=== PATIENT | female | born 1945 | race Hispanic/Latino ===

== ENCOUNTER 2017-04-15 15:02 | Inpatient (IN) | payer MEDICARE, BC ==
[2017-04-15] MEDS ORDERED: Amiodarone 360 mg/D5W 200 ml 360 MG/200 ML BAG IV ONE (15:31)
[2017-04-15] MEDS ORDERED: Amiodarone 150 mg/D5W 100 ml 150 MG/100 ML BAG ONE (15:32)
[2017-04-15] MEDS ORDERED: Amiodarone 150 mg/D5W 100 ml 150 MG/100 ML BAG IVPB ONE (15:33)
[2017-04-15] MEDS ORDERED: Amiodarone 360 mg/D5W 200 ml 360 MG/200 ML BAG IV SCH (15:45)
[2017-04-15 15:49] LABS: BASO # 0.03 K/mm3 (0.0-2.0); BASO % 0.3 % (0.0-3.0); EOS # 0.2 (0.0-0.7); EOS % 1.7 % (1.5-5.0); GRAN # 5.34 (1.4-6.5); HEMATOCRIT 35.4 % (36.0-48.0); LYMPH # 2.2 (1.2-3.4); LYMPH % 25.9 % (22.0-35.0); MEAN CELL VOLUME 89.4 fl (80.0-105.0); MEAN CORPUSCULAR HEMOGLOBIN 30.8 pg (25.0-35.0); MEAN CORPUSCULAR HGB CONC 34.5 g/dl (31.0-37.0); MEAN PLATELET VOLUME 10.8 fl (7.0-11.0); MONO # 0.9 (0.1-0.6); MONO % 10.1 % (1.0-6.0); RED CELL DISTRIBUTION WIDTH 13.3 % (11.5-14.5); WHITE BLOOD COUNT 8.6 10^3/ul (4.5-11.0)
[2017-04-15 15:59] LABS: ALB/GLOB RATIO 1.4 (1.1-1.8); ALKALINE PHOSPHATASE 154 U/L (38-126); ALT/SGPT 42 U/L (7-56); AST/SGOT 28 U/L (14-36); BILIRUBIN,TOTAL 0.6 mg/dL (0.2-1.3); BLOOD UREA NITROGEN 37 mg/dL (7-21); CALCIUM 9.6 mg/dL (8.4-10.5); CARBON DIOXIDE 31 mmol/L (21-33); CHLORIDE 95 mmol/L (98-107); GFR AFRICAN-AMERICAN 54; POTASSIUM 4.7 mmol/L (3.6-5.0); SODIUM 136 mmol/L (132-148)
--- NOTE | 2017-04-15 16:02 | RAD ---
HISTORY: sob COMPARISON: No prior. FINDINGS: LUNGS: No active pulmonary disease. PLEURA: No significant pleural effusion identified, no pneumothorax apparent. CARDIOVASCULAR: Moderate cardiomegaly OSSEOUS STRUCTURES: Sternal wires VISUALIZED UPPER ABDOMEN: Normal. OTHER FINDINGS: None. IMPRESSION: No active disease.
[2017-04-15 16:04] LABS: GLUCOSE,RANDOM 426 mg/dL (70-110)
[2017-04-15 16:12] LABS: TROPONIN I < 0.01 ng/mL
[2017-04-15 16:15] LABS: INR 1.5 (0.93-1.08); PARTIAL THROMBOPLASTIN TIME 30.1 Seconds (25.1-36.5)
[2017-04-15 18:01] LABS: URINE BILIRUBIN NEGATIVE (NEGATIVE); URINE BLOOD NEGATIVE (NEGATIVE); URINE GLUCOSE (UA) >=1000 mg/dL (NEGATIVE); URINE KETONE NEGATIVE (NEGATIVE); URINE LEUKOCYTE ESTERASE NEGATIVE Leu/uL (NEGATIVE); URINE PROTEIN NEGATIVE mg/dL (<30 mg/dL); URINE UROBILINOGEN 0.2 E.U./dL (<1 E.U./dL)
[2017-04-15 18:03] LABS: URINE APPEARANCE CLEAR (CLEAR); URINE COLOR YELLOW (YELLOW)
[2017-04-15] MEDS: diltiaZEM IVPB 100mg in NS 100 ML IV PRN (18:15)
--- NOTE | 2017-04-15 19:12 | ED PDOC ---
Arrival/HPI - General Chief Complaint: Palpitations Time Seen by Provider: 04/15/17 15:06 Historian: Patient - History of Present Illness Narrative History of Present Illness (Text): 04/15/17 19:12 Patient is a 71 yo female, past medical hx of CAD, atrial fibrillation, s/p ablation, presents to ED stating that she has had palpitations for "past 1-2 hours". Patient reportedly had sudden onset of symptoms. Has mild sensation of shortness of breath. Denies chest pain. Denies lightheadedness or dizziness. She states that "I've had this many times I'm in and out of [facility] Patient states this am she was in normal state of his health. Past Medical History - Infectious Disease Hx of Infectious Diseases: None - Tetanus Immunization Tetanus Immunization: Unknown - Reproductive Menopause: Yes - Cardiac Hx Congestive Heart Failure: Yes Hx Hypertension: Yes - Pulmonary Hx Respiratory Disorders: Yes (denies pe, has home o2) Hx Chronic Obstructive Pulmonary Disease (COPD): Yes - Neurological Hx Neurological Disorder: No - HEENT Hx HEENT Disorder: No - Renal Hx Renal Disorder: No - Endocrine/Metabolic Hx Endocrine Disorders: Yes Hx Diabetes Mellitus Type 1: Yes - Hematological/Oncological Hx Blood Disorders: No - Integumentary Hx Dermatological Disorder: Yes Other/Comment: left lower leg red and +2 edema with dry flakey skin to foot and lower leg, right lower extremity less red +3 pitting edema to foot with dry flakey skin. Pt stated" My legs have been like this since after my open heart sx". - Musculoskeletal/Rheumatological Hx Musculoskeletal Disorders: Yes Hx Arthritis: Yes - Gastrointestinal Hx Gastrointestinal Disorders: No - Genitourinary/Gynecological Hx Genitourinary Disorders: No - Psychiatric Hx Psychophysiologic Disorder: Yes Hx Anxiety: Yes Hx Depression: Yes Hx Substance Use: No - Surgical History Hx Coronary Artery Bypass Graft: Yes Hx Open Heart Surgery: Yes Other/Comment: rt foot fracture + splint - Anesthesia Hx Anesthesia: Yes Hx Anesthesia Reactions: No - Suicidal Assessment Feels Threatened In Home Enviroment: No Family/Social History Family/Social History: Unknown Family HX Smoking Status: Former Smoker Hx Alcohol Use: No Hx Substance Use: No Hx Substance Use Treatment: No Allergies/Home Meds Allergies/Adverse Reactions: Allergies No Known Allergies Allergy (Verified 04/15/17 19:09) Home Medications: Home Meds Medication Instructions Recorded Confirmed Alprazolam 0.25 mg PO BID 09/10/14 04/15/17 Atorvastatin [Lipitor] 40 mg PO DAILY 09/10/14 04/15/17 Escitalopram [Lexapro] 20 mg PO DAILY 09/10/14 04/15/17 Furosemide 60 mg PO DAILY 09/10/14 04/15/17 Insulin Glargine,Hum.rec.anlog 55 units SUBCUT ACB 09/10/14 04/15/17 [Lantus] Apixaban [Eliquis] 5 mg PO BID 04/15/17 04/15/17 Calcium Carb, Citrate/Vit D3 600 mg PO BID 04/15/17 04/15/17 [Calcium + D3 ER Tablet] Escitalopram Oxalate [Escitalopram] 20 mg PO DAILY 04/15/17 04/15/17 Fluticasone/Vilanterol [Breo 1 pow IH DAILY 04/15/17 04/15/17 Ellipta] Folic Acid 1 mg PO DAILY 04/15/17 04/15/17 Insulin Glargine,Hum.rec.anlog 20 unit SQ ACD 04/15/17 04/15/17 [Lantus Solostar] Insulin Lispro [Humalog (Insulin 0 unit SQ 04/15/17 Lispro)] Montelukast [Singulair] 10 mg PO HS 04/15/17 04/15/17 Nebivolol [Bystolic] 25 mg PO DAILY 04/15/17 04/15/17 Semnt-1-Lria Ethyl Esters 1 GM 2 gm PO DAILY 04/15/17 04/15/17 [Lovaza] Pantoprazole [Protonix] 40 mg PO DAILY 04/15/17 04/15/17 Potassium Chloride [K-Tab ER] 10 meq PO DAILY 04/15/17 04/15/17 Tadalafil [Adcirca] 40 mg PO HS 04/15/17 04/15/17 Review of Systems - Review of Systems Constitutional: Fatigue. absent: Fevers Eyes: absent: Vision Changes ENT: absent: Hearing Changes Respiratory: absent: SOB, Cough Cardiovascular: Palpitations, VILLASENOR. absent: Chest Pain, Edema, Calf Pain Gastrointestinal: absent: Abdominal Pain, Nausea, Vomiting Genitourinary Female: absent: Dysuria Musculoskeletal: absent: Back Pain Skin: absent: Rash Neurological: absent: Headache, Dizziness, Focal Weakness Hemo/Lymphatic: absent: Easy Bleeding Physical Exam Vital Signs Reviewed: Yes Vital Signs Temp Pulse Resp BP Pulse Ox 04/15/17 18:05 102 H 121/58 L 04/15/17 17:44 124 H 124/64 04/15/17 17:43 124 H 124/64 04/15/17 15:28 97.9 F 203 H 18 113/92 H 99 04/15/17 15:15 98 F 204 H 20 118/87 98 Temperature: Afebrile Blood Pressure: Normal Pulse: Tachycardic Appearance: Positive for: Uncomfortable Pain Distress: Mild Mental Status: Positive for: Alert and Oriented X 3 - Systems Exam Head: Present: Atraumatic, Normocephalic Pupils: Present: PERRL Extroacular Muscles: Present: EOMI Mouth: Present: Moist Mucous Membranes Pharnyx: No: ERYTHEMA Nose (Internal): Present: Normal Inspection Neck: Present: Normal Range of Motion, JVD Respiratory/Chest: Present: Clear to Auscultation. No: Respiratory Distress Cardiovascular: Present: Murmurs, Tachycardic Abdomen: Present: Distention. No: Tenderness, Peritoneal Signs Rectal: No: Gross Blood Back: No: CVA Tenderness Upper Extremity: No: Cyanosis Lower Extremity: Present: NORMAL PULSES, Neurovascularly Intact. No: Edema, CALF TENDERNESS Neurological: Present: Motor Func Grossly Intact, Normal Sensory Function Skin: Present: Warm Psychiatric: Present: Alert, Normal Insight, Normal Concentration Medical Decision Making ED Course and Treatment: Patient is a 71 yo female presents to ED with sudden onset of palpitations upon arrival. Initial history supplemented by family and daughters, who states most of her recent medical care has been at [facility] Her PMD is Dr. Chester Weiner, her runstitching machine operator is through Dr. Weiner's office, they were paged upon arrival to obtain more specific history as patient initially unclear of her medication sensitivities. Trust Accounts Supervisor is Dr. Horn. Upon arrival, patient placed on monitor and found to be significantly tachycardic with hear rate of 180-200, wide complex. EKG at 15:17 reveals wide complex tachycardia, ddx ventricular tachycardia vs. atrial flutter, vs. svt. With this heart rhythm she had MILD symptoms, mild dyspnea, no chest pain or lightheadedness, and noted to have stable blood pressure. Daughter at bedside stated that "one of the medications they gave for her heart gave her a seizure" and they were unable to recollect this medication. Thus, page placed to Dr. Horn and her PMD as I discussed treatment plan including rate control of wide complex rhythm. On monitor, patient appeared to have occasional irregular appearance to tachycardia. Cardiology consulted, Dr. Singer initially as he was on-call runstitching machine operator, although family subsequently requested Dr. Tapia as they were familiar with him in past. Amiodarone bolus and drip initiated and patient had improvement of heart rhythm to 130s, with no chest pain or shortness of breath, and stable blood pressure. Cardiology presented to ED and I discussed case with Dr. Horn, who informs me she had previous reaction to medication called Dofetalide after an ablation earlier this year. This was communicated to family. With rate control, she remains in atrial fibrillation but remains asymptomatic. Cannot exclude component of ischemia on repeat EKG, but she denies chest pain. Anticoagulation ordered per cardiology. Patient and family request Dr. Mooney to be her admitting physician as her PMD does not admit here, this was discussed with Dr. Mooney who is agreeable. Patient admitted to telemetry floor. Blood sugar elevated, current exam not consistent with DKA. Will endorse to admitting team for management. - Lab Interpretations Lab Results: 04/15/17 15:30 04/15/17 15:30 Lab Results 04/15/17 15:30: Sodium 136, Potassium 4.7, Chloride 95 L, Carbon Dioxide 31, Anion Gap 15, BUN 37 H, Creatinine 1.2, Est GFR ( Amer) 54, Est GFR (Non- Af Amer) 44, Random Glucose 426 H* D, Calcium 9.6, Total Bilirubin 0.6, AST 28, ALT 42, Alkaline Phosphatase 154 H, Lactate Dehydrogenase 587, Total Creatine Kinase 47, Troponin I < 0.01 D, NT-Pro-B Natriuret Pep 1210 H, Total Protein 7.0, Albumin 4.1, Globulin 3.0, Albumin/Globulin Ratio 1.4 04/15/17 15:30: PT 16.5 H, INR 1.50 H, APTT 30.1 04/15/17 15:30: WBC 8.6, RBC 3.96, Hgb 12.2, Hct 35.4 L, MCV 89.4, MCH 30.8, MCHC 34.5, RDW 13.3, Plt Count 283, MPV 10.8, Gran % 62.0, Lymph % (Auto) 25.9, [place] % (Auto) 10.1 H, Eos % (Auto) 1.7, Baso % (Auto) 0.3, Gran # 5.34, Lymph # 2.2, [place] # 0.9 H, Eos # 0.2, Baso # 0.03 - RAD Interpretation Radiology Orders: 04/15/17 15:32 CHEST PORTABLE [RAD] Stat - Medication Orders Current Medication Orders: Amiodarone HCl (Cordarone) 200 mg PO DAILY RASHID Amiodarone HCl (Cordarone) 400 mg PO TID RASHID Stop: 04/16/17 14:01 Apixaban (Eliquis) 5 mg PO BID RASHID PRN Reason: Protocol Atorvastatin Calcium (Lipitor) 40 mg PO DAILY RASHID Amiodarone HCl/Dextrose (Nexterone 360 Mg In D5w 200 Ml (Premix)) 360 mg in 200 mls @ 33.333 mls/hr IV .Q6H RASHID; 1 MG/MIN PRN Reason: Protocol Last Admin: 04/15/17 16:06 Dose: 33.333 mls/hr eMAR Start Stop Document 04/15/17 16:06 [facility] (Rec: 04/15/17 16:06 [facility]-[id number]) Intravenous Solution Start Date 04/15/17 Start Time 16:06 diltiaZEM IVPB 100mg in NS (Cardizem 100mg In Ns) 100 mls @ 10 mls/hr IV .Q10H PRN; Protocol; 10 MG/HR PRN Reason: TITRATE PER MD ORDER Stop: 04/18/17 23:59 Discontinued Medications Amiodarone HCl (Cordarone) 400 mg PO STAT STA Stop: 04/15/17 17:11 Last Admin: 04/15/17 17:43 Dose: 400 mg Diltiazem HCl (Cardizem) 10 mg IVP STAT STA Stop: 04/15/17 17:10 Last Admin: 04/15/17 17:44 Dose: 10 mg IVP Administration Document 04/15/17 17:44 [facility] (Rec: 04/15/17 17:44 [facility]-[id number]) Charges for Administration # of IVP Administrations 1 AUG Pulse and Blood Pressure Document 04/15/17 17:44 [facility] (Rec: 04/15/17 17:44 [facility]-[id number]) Pulse Pulse Rate (60-90 beats/min) 124 Blood Pressure Blood Pressure (100/60-150/90 mm Hg) 124/64 Amiodarone HCl/Dextrose (Nexterone 150 Mg In Dextrose 100 Ml (Premix)) 150 mg in 100 mls @ 600 mls/hr IVPB ONCE ONE PRN Reason: Protocol Stop: 04/15/17 15:42 Last Admin: 04/15/17 16:00 Dose: 600 mls/hr eMAR Start Stop Document 04/15/17 16:00 [facility] (Rec: 04/15/17 16:00 [facility]-[id number]) Intravenous Solution Start Date 04/15/17 Start Time 16:00 End Date 04/15/17 End time 16:10 Total Infusion Time 10 Verapamil HCl (Verapamil Inj) 2.5 mg IVP STAT STA Stop: 04/15/17 17:08 Last Admin: 04/15/17 17:43 Dose: 2.5 mg IVP Administration Document 04/15/17 17:43 [facility] (Rec: 04/15/17 17:43 [facility]-[id number]) Charges for Administration # of IVP Administrations 1 AUG Pulse and Blood Pressure Document 04/15/17 17:43 [facility] (Rec: 04/15/17 17:43 [facility]-[id number]) Pulse Pulse Rate (60-90 beats/min) 124 Blood Pressure Blood Pressure (100/60-150/90 mm Hg) 124/64 Verapamil HCl (Verapamil Inj) 2.5 mg IVP ONCE ONE Stop: 04/15/17 17:16 Last Admin: 04/15/17 18:05 Dose: MAR Pulse and Blood Pressure Document 04/15/17 18:05 [facility] (Rec: 04/15/17 18:05 [facility]-[id number]) Pulse Pulse Rate (60-90 beats/min) 102 Blood Pressure Blood Pressure (100/60-150/90 mm Hg) 121/58 Disposition/Present on Arrival - Present on Arrival Any Indicators Present on Arrival: Yes History of DVT/PE: No History of Uncontrolled Diabetes: Yes Urinary Catheter: No History of Decub. Ulcer: No History Surgical Site Infection Following: None - Disposition Have Diagnosis and Disposition been Completed?: Yes Diagnosis: Atrial fibrillation with rapid ventricular response, Tachyarrhythmia, Hyperglycemia Disposition: HOSPITALIZED Disposition Time: 17:35 Patient Plan: Admission, Telemetry Patient Problems: Current Active Problems Problem Status Onset Atrial fibrillation with rapid ventricular response Acute Hyperglycemia Acute Tachyarrhythmia Acute Condition: SERIOUS
[2017-04-15 20:33] VITALS: BMI 46.3
[2017-04-15] MEDS ORDERED: Pneumococcal 23-Valent Vaccine IM ONE (20:33)
[2017-04-15] MEDS ORDERED: Influenza Vaccine 60 mcg/0.5 mL SYR (4YR UP) IM ONE (20:33)
--- NOTE | 2017-04-15 23:29 | HP ---
CHIEF COMPLAINT: Palpitation. HISTORY OF PRESENT ILLNESS: Ms. Brigitte Nance is a 71-year-old female with past medical history of coronary artery disease, atrial fibrillation, SP ablation, presented to the emergency room department stating that she has had palpitation for at least 1 to 2 hours. The patient had sudden onset of the symptoms, has mild sensation of the shortness of breath. Denies nausea, vomiting or diarrhea. Denies lightheadedness. She states that "I have had this many times, I am in and out of [facility]." The patient said this a.m. she was in normal state of her health; then, she started palpitation. I saw the patient in the emergency room. Her daughter is my private patient, she was sitting on the bedside. PAST MEDICAL HISTORY: Coronary artery disease, atrial fibrillation, SP ablation, history of congestive heart failure, hypertension, COPD, diabetes mellitus. Left lower leg redness plus edema with dry flakes of skin of foot and lower extremities. Right lower extremity less red, +3 pitting edema to foot with dry flaky skin. Has history of open heart surgery; arthritis; anxiety; depression; coronary artery bypass graft; right foot fracture, has splint. FAMILY HISTORY: Father and mother noncontributory. HABITS: Former smoker, now no smoking. No drugs. No ethanol. ALLERGIES: THE PATIENT IS NOT ALLERGIC TO ANY MEDICATIONS. HOME MEDICATIONS: Lipitor, Lexapro, Lasix, Eliquis, calcium with vitamin D, Breo, folic acid, Lantus, lispro, Singulair, Bystolic, Lovaza, Protonix and Adcirca. REVIEW OF SYSTEMS: The patient was seen and examined on the bedside, feeling fatigue. No fever. No vision changes. No hearing changes. The moment no coughing, having palpitation. No chest pain. Having swelling of the legs. No abdominal pain, nausea or vomiting. No dysuria. No back pain. No rashes. No headache, dizziness or focal weakness. The patient has a history of easy bleeding. PHYSICAL EXAMINATION: VITAL SIGNS: Temperature 97.9; pulse 204 - 203, repeat is 124 - 102; respiratory rate 20, blood pressure 118/87 and pulse oximetry 98%. HEENT: Head is normocephalic and atraumatic. Eyes: PERRLA. Extraocular muscles intact. Conjunctivae clear. Nose is patent. Mucous membrane moist. NECK: Supple. No carotid bruits, JVD or thyromegaly. CHEST: Bilaterally symmetrical. LUNGS: Clear to auscultation. No respiratory distress. HEART: Has murmur, tachycardia. ABDOMEN: Distended. No tenderness. No peritoneal signs. BACK: No CVA tenderness. EXTREMITIES: Upper extremities, no cyanosis. Lower extremities, normal pulses. No swelling right now. SKIN: Warm, moist. LABORATORY DATA: White blood cell 8.6, hemoglobin 12.2, hematocrit 35.4 and platelets 283. Sodium 136, potassium 4.7, BUN 37, creatinine 1.2 and glucose 426. ASSESSMENT AND PLAN: Ms. Brigitte Nance is a 71-year-old lady with uncontrolled diabetes mellitus, hypochloremia, increased BUN, troponin is negative, congestive heart failure, BNP is 1210, atrial fibrillation with rapid ventricular response, tachycardia, hyperglycemia, tachyarrhythmia. Discussion done with Dr. Alejandrina Barros, ER physician. The patient is seen by Dr. Tapia, priming mixture carrier. The patient has a history of coronary artery disease, status post open heart surgery, SP ablation; chronic obstructive pulmonary disease; history of leg swelling, but right now do not have leg swelling; history of anxiety and depression; coronary artery bypass graft. We admitted the patient. Chest x-rays done, reviewed by me. The patient was given amiodarone in ER; started diltiazem, amiodarone, Eliquis and Lipitor. Gastrointestinal and deep venous thrombosis prophylaxis. Repeat labs. We will follow up. Marry Mooney MD MTDD
[2017-04-15] MEDS: TADALAFIL 40 MG PO SCH (23:36)
--- NOTE | 2017-04-16 00:40 | CP.PCM.PN ---
Subjective - Date & Time of Evaluation Date of Evaluation: 04/16/17 Time of Evaluation: 00:30 - Subjective Subjective: Patient was seen at bedside. Complains of pain in right foot and left shoulder. States that she had fracture in left foot in February, had left shoulder rotator cuff injury. Has no other complaints now. BP 108/66, HR 103/min, Temp: 98.1*F. Medical record was reviewed. This 71 year old white woman was admitted palpitation, sob, atrial fibrillation with RVR. Has PMH of atrial fibrillation, s/P ablation, CABG, CAD, CHF, HTN, COPD, DM II , open heart surgery, arthritis, anxiety, depression , right foot surgery. Objective - Vital Signs/Intake and Output Vital Signs (last 24 hours): Temp Pulse Resp BP Pulse Ox 98.1 F 103 H 19 108/66 96 04/15/17 23:37 04/15/17 23:37 04/15/17 23:37 04/15/17 23:37 04/15/17 23:37 - Medications Medications: Current Medications Albuterol/Ipratropium (Duoneb 3 Mg/0.5 Mg (3 Ml) Ud) 3 ml IH [id number] RASHID Alprazolam (Xanax) 0.25 mg PO BID RASHID PRN Reason: Protocol Stop: 04/23/17 10:01 Amiodarone HCl (Cordarone) 200 mg PO DAILY RASHID Amiodarone HCl (Cordarone) 400 mg PO TID [facility] Stop: 04/16/17 14:01 Apixaban (Eliquis) 5 mg PO BID RASHID PRN Reason: Protocol Last Admin: 04/15/17 19:16 Dose: 5 mg Atorvastatin Calcium (Lipitor) 40 mg PO DAILY [facility] Folic Acid (Folic Acid) 1 mg PO DAILY [facility] diltiaZEM IVPB 100mg in NS (Cardizem 100mg In Ns) 100 mls @ 10 mls/hr IV .Q10H PRN; Protocol; 10 MG/HR PRN Reason: TITRATE PER MD ORDER Stop: 04/18/17 23:59 Last Admin: 04/15/17 18:15 Dose: 10 mg/hr, 10 mls/hr Insulin Human Regular (Humulin R Low) 0 units SC ACHS RASHID PRN Reason: Protocol Montelukast Sodium (Singulair) 10 mg PO HS RASHID Non-Formulary Medication (Calcium Carb, Citrate/Vit D3 [Calcium + D3 Er Tablet] ) 600 mg PO BID RASHID Non-Formulary Medication (Fluticasone/Vilanterol [Breo Ellipta 100-25 Mcg Inh]) 1 pow IH DAILY RASHID Non-Formulary Medication (Nebivolol [Bystolic]) 25 mg PO DAILY RASHID Non-Formulary Medication (Tadalafil [Adcirca]) 40 mg PO HS [facility] Last Admin: 04/15/17 23:36 Dose: Not Given [id number] Ethyl Esters (Lovaza) 2 gm PO DAILY RASHID Pantoprazole Sodium (Protonix Ec Tab) 40 mg PO DAILY RASHID - Labs Labs: PT 16.5 SECONDS (9.4-12.5) H 04/15/17 15:30 INR 1.50 (0.93-1.08) H 04/15/17 15:30 APTT 30.1 Seconds (25.1-36.5) 04/15/17 15:30 Most Recent Lab Values WBC 8.6 10^3/ul (4.5-11.0) 04/15/17 15:30 RBC 3.96 10^6/uL (3.5-6.1) 04/15/17 15:30 Hgb 12.2 g/dL (12.0-16.0) 04/15/17 15:30 Hct 35.4 % (36.0-48.0) L 04/15/17 15:30 MCV 89.4 fl (80.0-105.0) 04/15/17 15:30 MCH 30.8 pg (25.0-35.0) 04/15/17 15:30 MCHC 34.5 g/dl (31.0-37.0) 04/15/17 15:30 RDW 13.3 % (11.5-14.5) 04/15/17 15:30 Plt Count 283 10^3/uL (120.0-450.0) 04/15/17 15:30 MPV 10.8 fl (7.0-11.0) 04/15/17 15:30 Gran % 62.0 % (50.0-68.0) 04/15/17 15:30 Lymph % (Auto) 25.9 % (22.0-35.0) 04/15/17 15:30 [place] % (Auto) 10.1 % (1.0-6.0) H 04/15/17 15:30 Eos % (Auto) 1.7 % (1.5-5.0) 04/15/17 15:30 Baso % (Auto) 0.3 % (0.0-3.0) 04/15/17 15:30 Gran # 5.34 (1.4-6.5) 04/15/17 15:30 Lymph # 2.2 (1.2-3.4) 04/15/17 15:30 [place] # 0.9 (0.1-0.6) H 04/15/17 15:30 Eos # 0.2 (0.0-0.7) 04/15/17 15:30 Baso # 0.03 K/mm3 (0.0-2.0) 04/15/17 15:30 PT 16.5 SECONDS (9.4-12.5) H 04/15/17 15:30 INR 1.50 (0.93-1.08) H 04/15/17 15:30 APTT 30.1 Seconds (25.1-36.5) 04/15/17 15:30 Sodium 136 mmol/L (132-148) 04/15/17 15:30 Potassium 4.7 mmol/L (3.6-5.0) 04/15/17 15:30 Chloride 95 mmol/L (98-107) L 04/15/17 15:30 Carbon Dioxide 31 mmol/L (21-33) 04/15/17 15:30 Anion Gap 15 (10-20) 04/15/17 15:30 BUN 37 mg/dL (7-21) H 04/15/17 15:30 Creatinine 1.2 mg/dL (0.7-1.2) 04/15/17 15:30 Est GFR ( Amer) 54 04/15/17 15:30 Est GFR (Non-Af Amer) 44 04/15/17 15:30 POC Glucose (mg/dL) 262 mg/dL (65-110) H 04/15/17 21:44 Random Glucose 426 mg/dL (70-110) H* D 04/15/17 15:30 Calcium 9.6 mg/dL (8.4-10.5) 04/15/17 15:30 Total Bilirubin 0.6 mg/dL (0.2-1.3) 04/15/17 15:30 AST 28 U/L (14-36) 04/15/17 15:30 ALT 42 U/L (7-56) 04/15/17 15:30 Alkaline Phosphatase 154 U/L (38-126) H 04/15/17 15:30 Lactate Dehydrogenase 587 U/L (333-699) 04/15/17 15:30 Total Creatine Kinase 47 U/L (35-230) 04/15/17 15:30 Troponin I < 0.01 ng/mL D 04/15/17 15:30 NT-Pro-B Natriuret Pep 1210 pg/mL (0-450) H 04/15/17 15:30 Total Protein 7.0 g/dL (5.8-8.3) 04/15/17 15:30 Albumin 4.1 g/dL (3.0-4.8) 04/15/17 15:30 Globulin 3.0 gm/dL 04/15/17 15:30 Albumin/Globulin Ratio 1.4 (1.1-1.8) 04/15/17 15:30 Urine Color Yellow (YELLOW) 04/15/17 17:35 Urine Appearance Clear (CLEAR) 04/15/17 17:35 Urine pH 6.0 (4.7-8.0) 04/15/17 17:35 Ur Specific [place] 1.010 (1.005-1.035) 04/15/17 17:35 Urine Protein Negative mg/dL (<30 mg/dL) 04/15/17 17:35 Urine Glucose (UA) >=1000 mg/dL (NEGATIVE) 04/15/17 17:35 Urine Ketones Negative mg/dL (NEGATIVE) 04/15/17 17:35 Urine Blood Negative (NEGATIVE) 04/15/17 17:35 Urine Nitrate Negative (NEGATIVE) 04/15/17 17:35 Urine Bilirubin Negative (NEGATIVE) 04/15/17 17:35 Urine Urobilinogen 0.2 E.U./dL (<1 E.U./dL) 04/15/17 17:35 Ur Leukocyte Esterase Negative Xiang/uL (NEGATIVE) 04/15/17 17:35 - Constitutional Appears: Well, No Acute Distress - Head Exam Head Exam: ATRAUMATIC, NORMAL INSPECTION, NORMOCEPHALIC - Eye Exam Eye Exam: Normal appearance - ENT Exam ENT Exam: Normal External Ear Exam - Neck Exam Neck Exam: Normal Inspection - Respiratory Exam Respiratory Exam: NORMAL BREATHING PATTERN - Cardiovascular Exam Cardiovascular Exam: absent: JVD - GI/Abdominal Exam GI & Abdominal Exam: absent: Distended - Rectal Exam Rectal Exam: Deferred - Exam Additional comments: Deferred. - Extremities Exam Additional comments: Right foot in brace. Is able to wiggle. Left shoulder ROM diminished. - Back Exam Back Exam: NORMAL INSPECTION - Neurological Exam Neurological Exam: Alert, Oriented x3 - Psychiatric Exam Psychiatric exam: Normal Affect, Normal Mood - Skin Skin Exam: Normal Color Assessment and Plan - Assessment and Plan (Free Text) Assessment: Right foot pain. Left shoulder pain. Left shoulder rotator cuff injury history. Obesity. Former smoker. Atrial fibrillation. Hx Ablation. CAD. CHF. HTN. COPD. DM II. Anxiety. Depression. Arthritis. Hx CABG. Plan: Ultram 50 mg PO x 1. Continue present management as per PMD.
[2017-04-16] MEDS: Albuterol-Ipratrop 3 mg / 0.5 (3 ml) UD IH SCH ×3 (01:30→13:41)
--- NOTE | 2017-04-16 02:43 | CON ---
DATE: 04/15/2017 CARDIOLOGY CONSULTATION REASON FOR CONSULTATION: Wide-complex tachycardia. BRIEF CLINICAL HISTORY: A 71-year-old female with past medical history significant for diabetes, obesity, hypertension, hyperlipidemia, coronary artery disease status post 5-vessel CABG at [facility] in 1999, history of atrial fibrillation status post radiofrequency ablation in September for atrial fibrillation, history of cardiomyopathy ischemic, history of recent cardiac catheterization in August, told patent bypass, but ischemic cardiomyopathy, who came in after having lunch, the patient felt fluttering sensation in the chest. Came into the ER and found to be heart rate in 200, wide-complex tachycardia, most likely atrial flutter with 2:1 conduction. PAST MEDICAL HISTORY: Significant for diabetes, hypertension, hyperlipidemia, coronary artery disease status post CABG in 1999, status post radiofrequency ablation in August by Dr. Horn and cardiac catheterization Dr. Singh in July and told patent graft. CURRENT MEDICATIONS: Currently, the patient is taking insulin, Protonix, folic acid, Eliquis,, calcium, montelukast, Bystolic, Lexapro and atorvastatin. SOCIAL HISTORY: Denies any smoking and denies any history of alcohol abuse. REVIEW OF SYSTEMS: As per HPI. PHYSICAL EXAMINATION: VITAL SIGNS: Height of the patient is 5 feet, weight of the patient is 237 pounds, body mass index of 46.3 kg per meter square. Rest of the examination as follows; heart rate of 114, temperature afebrile, and blood pressure of 113/92. HEENT: PERRLA. Extraocular muscles are intact. NECK: Supple. No carotid bruit or thyromegaly. CHEST: Clear to auscultation. HEART: S1 and S2 regular. ABDOMEN: Soft. EXTREMITIES: Clubbing and cyanosis negative. DIAGNOSTIC DATA: Recent cardiac workup: Cardiac catheterization in 08/[address] at [facility] by Dr. Singh, told patent graft. History of radiofrequency ablation for atrial fibrillation in September. Most recent MUGA scan done with result unknown. EKG; wide complex tachycardia, probably 2:1 conduction, atrial flutter. LABORATORY DATA: Blood workup as follows: WBC of 8.6, hemoglobin of 12.2, hematocrit of 35.4 and platelet count of 283. Chemistry shows sodium of 136, potassium of 4.7, chloride of 95, carbon dioxide of 31, anion gap of 15, and BUN of 37. Blood sugar of 426, calcium of 9.6, bilirubin of 0.6, and alkaline phosphatase of 154. BNP 1210 and troponin is 0.01, negative. IMPRESSION: Wide-complex tachycardia, most likely atrial flutter with 2:1 conduction. Diabetes, hypertension, hyperlipidemia, coronary artery disease status post coronary artery bypass grafting in 1999, status post cardiac catheterization in August, told patent graft. History of radiofrequency ablation by Dr. Horn at [facility] in September, on Eliquis. RECOMMENDATIONS: We will resume Eliquis. Discontinue IV amiodarone and start p.o. amiodarone. Start Cardizem to control the heart rate, give 2.5 verapamil x2. Lipid profile, TSH, hemoglobin A1c. We will do the echo. If the patient gets converted to rate controlled, we will discharge her over the weekend, but if remains in atrial flutter controlled, transferred to [facility] on Tuesday for radiofrequency ablation. Thank you Dr. Colby for providing us the opportunity in taking care of Brigitte Nance. Raphael Tapia MD cc: Ladarius Colby MD MTDD
[2017-04-16] MEDS: diltiaZEM IVPB 100mg in NS 100 ML IV PRN ×3 (03:49→20:21)
[2017-04-16 07:05] LABS: BASO # 0.02 K/mm3 (0.0-2.0); BASO % 0.3 % (0.0-3.0); EOS # 0.2 (0.0-0.7); EOS % 3.4 % (1.5-5.0); GRAN # 3.4 (1.4-6.5); GRAN % 54.8 % (50.0-68.0); LYMPH % 31.8 % (22.0-35.0); MEAN CELL VOLUME 88.6 fl (80.0-105.0); MEAN CORPUSCULAR HGB CONC 33.9 g/dl (31.0-37.0); MEAN PLATELET VOLUME 10.5 fl (7.0-11.0); MONO # 0.6 (0.1-0.6); MONO % 9.7 % (1.0-6.0); RED CELL DISTRIBUTION WIDTH 13.6 % (11.5-14.5); WHITE BLOOD COUNT 6.2 10^3/ul (4.5-11.0)
[2017-04-16 07:12] LABS: ALB/GLOB RATIO 1.3 (1.1-1.8); BILIRUBIN,TOTAL 0.5 mg/dL (0.2-1.3); CALCIUM 9.2 mg/dL (8.4-10.5); MAGNESIUM 1.6 mg/dL (1.7-2.2); PHOSPHOROUS 3.2 mg/dL (2.5-4.5); POTASSIUM 3.9 mmol/L (3.6-5.0); TOTAL PROTEIN 5.9 g/dL (5.8-8.3)
[2017-04-16 07:43] LABS: TROPONIN I 1.13 ng/mL
[2017-04-16] MEDS: Enoxaparin 100 mg Syringe SC SCH ×2 (08:27→21:59)
[2017-04-16] MEDS: Insulin Reg-LOW-Coverage SC SCH ×4 (08:27→21:59)
--- NOTE | 2017-04-16 09:10 | CARD ---
APPROVED REPORT EKG Measurement Heart [id number] <Conclusion> AF with RVR LAHB IVCD STTW changes c/w ischemia
--- NOTE | 2017-04-16 09:13 | CARD ---
APPROVED REPORT EKG Measurement Heart [id number] <Conclusion> Atrial fibrillation with rapid ventricular response Left axis deviation, LAHB Septal infarct, age undetermined Marked ST abnormality, possible inferolateral subendocardial injury C/W earlier ECG: the rate is slower
--- NOTE | 2017-04-16 09:23 | CARD ---
APPROVED REPORT EKG Measurement Heart [id number] <Conclusion> Rapid wide complex tachycardia, new LBBB vs abberent conduction
--- NOTE | 2017-04-16 09:39 | CARD ---
APPROVED REPORT EKG Measurement Heart [id number] <Conclusion> Sinus tachycardia, new Septal infarct, age undetermined Marked ST abnormality, possible inferior subendocardial injury Prolonged QTc
--- NOTE | 2017-04-16 09:50 | CP.PCM.CON ---
<Mathieu Lowe - Last Filed: 04/16/17 09:46> History of Present Illness - History of Present Illness History of Present Illness: Consult note for Dr. Caceres: 71 y.o female with PMH of CAD, atrial fibrillation, s/p ablation consulted by podiatry for right foot fracture. She is being seen by Dr. Jatin Cabrera DPM at [place]. Patient rates her pain 6/10 today to the right lower extremity. States she was recently transitioned into a CAM boot. Her next appointment with Dr. Cabrera is on 04/28/2017 where he will take x-rays and evaluated her bone healing. Reports some mild redness to the right lower extremity but states that the coloration is normal for her. She denies n/v/sob/cp/chills or fever at this time. No other pedal complaints. Past Patient History - Infectious Disease Hx of Infectious Diseases: None - Tetanus Immunizations Tetanus Immunization: Unknown - Past Social History Smoking Status: Former Smoker - CARDIAC Hx Cardiac Disorders: Yes (CABG,OPEN HEART,CAD S/P ABLATION.) Hx Circulatory Problems: Yes Hx Congestive Heart Failure: Yes Hx Hypertension: Yes - PULMONARY Hx Respiratory Disorders: Yes (denies pe, has home o2) Hx Chronic Obstructive Pulmonary Disease (COPD): Yes Hx Pneumonia: Yes - NEUROLOGICAL Hx Neurological Disorder: No - HEENT Hx HEENT Problems: No - RENAL Hx Chronic Kidney Disease: No - ENDOCRINE/METABOLIC Hx Endocrine Disorders: Yes Hx Diabetes Mellitus Type 1: Yes - HEMATOLOGICAL/ONCOLOGICAL Hx Blood Disorders: No - INTEGUMENTARY Hx Dermatological Problems: Yes Other/Comment: left lower leg red and +2 edema with dry flakey skin to foot and lower leg, right lower extremity less red +3 pitting edema to foot with dry flakey skin. Pt stated" My legs have been like this since after my open heart sx". - MUSCULOSKELETAL/RHEUMATOLOGICAL Hx Musculoskeletal Disorders: Yes Hx Arthritis: Yes Hx Falls: Yes (LAST FALL-JANUARY 2017) - GASTROINTESTINAL Hx Gastrointestinal Disorders: No - GENITOURINARY/GYNECOLOGICAL Hx Genitourinary Disorders: Yes (C/S X 1) - PSYCHIATRIC Hx Psychophysiologic Disorder: Yes Hx Anxiety: Yes Hx Depression: Yes Hx Substance Use: No - SURGICAL HISTORY Hx Surgeries: Yes (TONSILLECTOMY,C/S X 1,CAD S/P ABLATION,CABG) Hx Open Heart Surgery: Yes Other/Comment: rt foot fracture + splint - ANESTHESIA Hx Anesthesia: Yes Hx Anesthesia Reactions: No Meds Allergies/Adverse Reactions: Allergies Allergy/AdvReac Type Severity Reaction Status Date / Time No Known Allergies Allergy Verified 04/15/17 19:09 - Medications Medications: Current Medications Albuterol/Ipratropium (Duoneb 3 Mg/0.5 Mg (3 Ml) Ud) 3 ml IH [id number] [facility] Last Admin: 04/16/17 07:48 Dose: 3 ml Alprazolam (Xanax) 0.25 mg PO BID [facility] PRN Reason: Protocol Stop: 04/23/17 10:01 Amiodarone HCl (Cordarone) 200 mg PO DAILY [facility] Amiodarone HCl (Cordarone) 400 mg PO TID [facility] Stop: 04/16/17 14:01 Last Admin: 04/16/17 08:28 Dose: 400 mg Aspirin (Aspirin Chewable) 81 mg PO DAILY [facility] Atorvastatin Calcium (Lipitor) 40 mg PO DAILY [facility] Enoxaparin Sodium (Lovenox) 100 mg SC Q12H [facility] PRN Reason: Protocol Last Admin: 04/16/17 08:27 Dose: 100 mg Folic Acid (Folic Acid) 1 mg PO DAILY [facility] diltiaZEM IVPB 100mg in NS (Cardizem 100mg In Ns) 100 mls @ 10 mls/hr IV .Q10H PRN; Protocol; 10 MG/HR PRN Reason: TITRATE PER MD ORDER Stop: 04/18/17 23:59 Last Admin: 04/16/17 03:49 Dose: 10 mg/hr, 10 mls/hr Insulin Human Regular (Humulin R Low) 0 units SC ACHS [facility] PRN Reason: Protocol Last Admin: 04/16/17 08:27 Dose: 1 units Metoprolol Tartrate (Lopressor) 25 mg PO BID [facility] Montelukast Sodium (Singulair) 10 mg PO HS [facility] Non-Formulary Medication (Calcium Carb, Citrate/Vit D3 [Calcium + D3 Er Tablet] ) 600 mg PO BID [facility] Non-Formulary Medication (Fluticasone/Vilanterol [Breo Ellipta 100-25 Mcg Inh]) 1 pow IH DAILY [facility] Non-Formulary Medication (Nebivolol [Bystolic]) 25 mg PO DAILY [facility] Non-Formulary Medication (Tadalafil [Adcirca]) 40 mg PO HS [facility] Last Admin: 04/15/17 23:36 Dose: Not Given [id number] Ethyl Esters (Lovaza) 2 gm PO DAILY [facility] Pantoprazole Sodium (Protonix Ec Tab) 40 mg PO DAILY [facility] Physical Exam - Constitutional Appears: Well, Non-toxic, No Acute Distress - Psychiatric Exam Psychiatric exam: Normal Affect, Normal Mood - Skin Skin Exam: Normal Color Results - Vital Signs Recent Vital Signs: Last Vital Signs Temp 97.8 F 04/16/17 06:00 Pulse 112 H 04/16/17 08:28 Resp 19 04/16/17 06:00 BP 102/62 04/16/17 08:28 Pulse Ox 96 04/16/17 06:00 - Labs Result Diagrams: 04/16/17 06:00 04/16/17 06:00 Labs: Laboratory Results - last 24 hr 04/15/17 04/15/17 04/16/17 17:35 21:44 06:00 WBC 6.2 D RBC 3.50 Hgb 10.5 L Hct 31.0 L MCV 88.6 MCH 30.0 MCHC 33.9 RDW 13.6 Plt Count 252 MPV 10.5 Gran % 54.8 Lymph % (Auto) 31.8 [place] % (Auto) 9.7 H Eos % (Auto) 3.4 Baso % (Auto) 0.3 Gran # 3.40 Lymph # 2.0 [place] # 0.6 Eos # 0.2 Baso # 0.02 Sodium Potassium Chloride Carbon Dioxide Anion Gap BUN Creatinine Est GFR ( Amer) Est GFR (Non-Af Amer) POC Glucose (mg/dL) 262 H Random Glucose Calcium Phosphorus Magnesium Total Bilirubin AST ALT Alkaline Phosphatase Lactate Dehydrogenase Total Creatine Kinase Troponin I Total Protein Albumin Globulin Albumin/Globulin Ratio Triglycerides Cholesterol LDL Cholesterol Direct HDL Cholesterol TSH 3rd Generation Urine Color Yellow Urine Appearance Clear Urine pH 6.0 Ur Specific [place] 1.010 Urine Protein Negative Urine Glucose (UA) >=1000 Urine Ketones Negative Urine Blood Negative Urine Nitrate Negative Urine Bilirubin Negative Urine Urobilinogen 0.2 Ur Leukocyte Esterase Negative 04/16/17 04/16/17 04/16/17 06:00 06:00 07:19 WBC RBC Hgb Hct MCV MCH MCHC RDW Plt Count MPV Gran % Lymph % (Auto) [place] % (Auto) Eos % (Auto) Baso % (Auto) Gran # Lymph # [place] # Eos # Baso # Sodium 142 Potassium 3.9 Chloride 102 Carbon Dioxide 31 Anion Gap 13 BUN 32 H Creatinine 1.1 Est GFR ( Amer) 59 Est GFR (Non-Af Amer) 49 POC Glucose (mg/dL) 175 H Random Glucose 183 H Calcium 9.2 Phosphorus 3.2 Magnesium 1.6 L Total Bilirubin 0.5 AST 25 ALT 31 Alkaline Phosphatase 117 Lactate Dehydrogenase 463 Total Creatine Kinase 74 Troponin I 1.13 H* D Total Protein 5.9 Albumin 3.3 Globulin 2.6 Albumin/Globulin Ratio 1.3 Triglycerides 279 H Cholesterol 173 LDL Cholesterol Direct 83 HDL Cholesterol 36 TSH 3rd Generation 2.10 Urine Color Urine Appearance Urine pH Ur Specific [place] Urine Protein Urine Glucose (UA) Urine Ketones Urine Blood Urine Nitrate Urine Bilirubin Urine Urobilinogen Ur Leukocyte Esterase Assessment & Plan - Assessment and Plan (Free Text) Assessment: 71 y.o female with PMH of CAD, atrial fibrillation, s/p ablation consulted by podiatry for right foot fracture Plan: Patient is seen and evaluated at bedside with attending Dr. Caceres. Charts, labs, vitals reviewed Will transfer the consult to Dr. Jatin Tompkins DPJonny, her domestic maid who has been treating the fracture Ordered X-rays for Dr. Tompkins to evaluate Will notify Dr. Tompkins about patient's status Thank you <Alfred Caceres - Last Filed: 04/16/17 10:04> Meds - Medications Medications: Current Medications Albuterol/Ipratropium (Duoneb 3 Mg/0.5 Mg (3 Ml) Ud) 3 ml IH [id number] [facility] Last Admin: 04/16/17 07:48 Dose: 3 ml Alprazolam (Xanax) 0.25 mg PO BID [facility] PRN Reason: Protocol Stop: 04/23/17 10:01 Amiodarone HCl (Cordarone) 200 mg PO DAILY [facility] Amiodarone HCl (Cordarone) 400 mg PO TID [facility] Stop: 04/16/17 14:01 Last Admin: 04/16/17 08:28 Dose: 400 mg Aspirin (Aspirin Chewable) 81 mg PO DAILY [facility] Atorvastatin Calcium (Lipitor) 40 mg PO DAILY [facility] Enoxaparin Sodium (Lovenox) 100 mg SC Q12H [facility] PRN Reason: Protocol Last Admin: 04/16/17 08:27 Dose: 100 mg Folic Acid (Folic Acid) 1 mg PO DAILY [facility] diltiaZEM IVPB 100mg in NS (Cardizem 100mg In Ns) 100 mls @ 10 mls/hr IV .Q10H PRN; Protocol; 10 MG/HR PRN Reason: TITRATE PER MD ORDER Stop: 04/18/17 23:59 Last Admin: 04/16/17 03:49 Dose: 10 mg/hr, 10 mls/hr Insulin Human Regular (Humulin R Low) 0 units SC ACHS [facility] PRN Reason: Protocol Last Admin: 04/16/17 08:27 Dose: 1 units Metoprolol Tartrate (Lopressor) 25 mg PO BID [facility] Montelukast Sodium (Singulair) 10 mg PO HS [facility] Non-Formulary Medication (Calcium Carb, Citrate/Vit D3 [Calcium + D3 Er Tablet] ) 600 mg PO BID [facility] Non-Formulary Medication (Fluticasone/Vilanterol [Breo Ellipta 100-25 Mcg Inh]) 1 pow IH DAILY [facility] Non-Formulary Medication (Nebivolol [Bystolic]) 25 mg PO DAILY [facility] Non-Formulary Medication (Tadalafil [Adcirca]) 40 mg PO HS [facility] Last Admin: 04/15/17 23:36 Dose: Not Given Ikojf-[id number] Ethyl Esters (Lovaza) 2 gm PO DAILY [facility] Pantoprazole Sodium (Protonix Ec Tab) 40 mg PO DAILY [facility] Results - Vital Signs Recent Vital Signs: Last Vital Signs Temp 97.8 F 04/16/17 06:00 Pulse 112 H 04/16/17 08:28 Resp 19 04/16/17 06:00 BP 102/62 04/16/17 08:28 Pulse Ox 96 04/16/17 06:00 - Labs Result Diagrams: 04/16/17 06:00 04/16/17 06:00 Labs: Laboratory Results - last 24 hr 04/15/17 04/15/17 04/16/17 17:35 21:44 06:00 WBC 6.2 D RBC 3.50 Hgb 10.5 L Hct 31.0 L MCV 88.6 MCH 30.0 MCHC 33.9 RDW 13.6 Plt Count 252 MPV 10.5 Gran % 54.8 Lymph % (Auto) 31.8 [place] % (Auto) 9.7 H Eos % (Auto) 3.4 Baso % (Auto) 0.3 Gran # 3.40 Lymph # 2.0 [place] # 0.6 Eos # 0.2 Baso # 0.02 Sodium Potassium Chloride Carbon Dioxide Anion Gap BUN Creatinine Est GFR ( Amer) Est GFR (Non-Af Amer) POC Glucose (mg/dL) 262 H Random Glucose Calcium Phosphorus Magnesium Total Bilirubin AST ALT Alkaline Phosphatase Lactate Dehydrogenase Total Creatine Kinase Troponin I Total Protein Albumin Globulin Albumin/Globulin Ratio Triglycerides Cholesterol LDL Cholesterol Direct HDL Cholesterol TSH 3rd Generation Urine Color Yellow Urine Appearance Clear Urine pH 6.0 Ur Specific [place] 1.010 Urine Protein Negative Urine Glucose (UA) >=1000 Urine Ketones Negative Urine Blood Negative Urine Nitrate Negative Urine Bilirubin Negative Urine Urobilinogen 0.2 Ur Leukocyte Esterase Negative 04/16/17 04/16/17 04/16/17 06:00 06:00 07:19 WBC RBC Hgb Hct MCV MCH MCHC RDW Plt Count MPV Gran % Lymph % (Auto) [place] % (Auto) Eos % (Auto) Baso % (Auto) Gran # Lymph # [place] # Eos # Baso # Sodium 142 Potassium 3.9 Chloride 102 Carbon Dioxide 31 Anion Gap 13 BUN 32 H Creatinine 1.1 Est GFR ( Amer) 59 Est GFR (Non-Af Amer) 49 POC Glucose (mg/dL) 175 H Random Glucose 183 H Calcium 9.2 Phosphorus 3.2 Magnesium 1.6 L Total Bilirubin 0.5 AST 25 ALT 31 Alkaline Phosphatase 117 Lactate Dehydrogenase 463 Total Creatine Kinase 74 Troponin I 1.13 H* D Total Protein 5.9 Albumin 3.3 Globulin 2.6 Albumin/Globulin Ratio 1.3 Triglycerides 279 H Cholesterol 173 LDL Cholesterol Direct 83 HDL Cholesterol 36 TSH 3rd Generation 2.10 Urine Color Urine Appearance Urine pH Ur Specific [place] Urine Protein Urine Glucose (UA) Urine Ketones Urine Blood Urine Nitrate Urine Bilirubin Urine Urobilinogen Ur Leukocyte Esterase Assessment & Plan - Assessment and Plan (Free Text) Plan: Correction: Mrs Nance is currently being treated by Dr. Jatin Cabrera who will continue treatment
[2017-04-16] MEDS ORDERED: NEBIVOLOL PO SCH (10:00)
[2017-04-16] MEDS: Omega-3-Acid Ethyl Esters 1 GM Cap PO SCH (10:12)
[2017-04-16] MEDS: Pantoprazole 40 mg EC Tab PO SCH (10:12)
[2017-04-16] MEDS: CALCIUM CARB CITRATE PO SCH ×2 (10:13→20:15)
[2017-04-16] MEDS: Non Formulary Medication (Fluticasone/Vilanterol [Breo Ellipta 100-25 Mcg Inh] 1 POW) IH SCH (10:13)
[2017-04-16] MEDS: VIT D3 PO SCH ×2 (10:13→20:15)
--- NOTE | 2017-04-16 11:08 | RAD ---
PROCEDURE: Right Foot Radiographs. HISTORY: s/p right foot fracture COMPARISON: None. FINDINGS: BONES: There is a likely acute fracture at the base of the 5th metatarsal bone at the level of the proximal metaphysis. Chronic healed fractures of the distal metaphysis of the 3rd and 4th metatarsal bones is suggested and possibly of the 5th metatarsal bone as well. Diffuse osteopenia suggests osteoporosis throughout the right foot. JOINTS: Joint space narrowing and cortical sclerosis is seen throughout the joints of the forefoot midfoot and hindfoot compatible degenerative joint disease. Midfoot joints appear most affected. SOFT TISSUES: Limited soft tissue edema is felt to overlie the 5th metatarsal fracture site. A moderate plantar calcaneal spurs identified additional heterotopic calcifications are seen inferior to it. OTHER FINDINGS: None. IMPRESSION: An acute fracture is suspected at the base the 5th metatarsal bone as discussed above. Chronic healed fractures of the 3rd referral 4th metatarsal bones is identified and possibly the 5th as well. No dislocation throughout the exam. Diffuse degenerative joint disease throughout the right foot but worst at the midfoot joint joints diffusely.
[2017-04-16] MEDS ORDERED: Albuterol-Ipratrop 3 mg / 0.5 (3 ml) UD IH PRN (18:20)
--- NOTE | 2017-04-16 18:47 | PN ---
DATE: Covering for Dr. Tapia. SUBJECTIVE: The patient is a 71-year-old female, who has history of coronary artery bypass [facility] and the patient underwent cardiac catheterization 2 months ago at [facility] and was told that she had no issues and grafts look like they were done 2 months ago. The patient has a history of ablation for atrial fibrillation in 06/2016 at [facility] and was placed on Eliquis after that. The patient presented yesterday because of rapid atrial fibrillation. The patient denies any retrosternal chest pain. This verification clerk I was notified with borderline troponin elevation. The patient still denies chest pain. The patient did sustain right foot injury from a fall and had a cast followed by splint. PHYSICAL EXAMINATION: VITAL SIGNS: Blood pressure 191/52, heart rate 67, temperature 98.4, respirations 18. HEENT: Normocephalic. NECK: No JVD. CHEST: Clear. HEART: S1 and S2, irregular. ABDOMEN: Soft. EXTREMITIES: No edema. LABORATORY DATA: Hemoglobin and hematocrit 10.5 and 31.0, white count and platelet count are within normal limit. SMA-7 today is within normal limits except for glucose 183 and BUN of 32. Troponin is 1.13. Triglycerides are elevated at 279. Chest x-ray did not reveal any consolidation or effusion. Haziness was noted in the left lower lobe. Old EKGs since admission were reviewed and the most recent one from this morning revealed rapid atrial fibrillation with left bundle branch block most likely her age related. ASSESSMENT: 1. Atrial fibrillation. 2. Consider non-ST elevation myocardial infarction. 3. History of established coronary artery disease status post coronary artery bypass surgery. 4. Uncontrolled diabetes mellitus. 5. Rule out deep venous thrombosis and/or pulmonary embolus. RECOMMENDATIONS: The patient was started on aspirin 81 mg once a day and therapeutic subcutaneous Lovenox at 100 mg twice a day, Lopressor 25 mg twice a day, Lipitor 40 mg once a day, Eliquis was discontinued. In the meantime, I will obtain venous Doppler of lower extremities, schedule the patient for an echocardiogram and obtain the most recent cardiac catheterization report performed at [facility]. Mil Hannallah, MD
--- NOTE | 2017-04-16 18:54 | US ---
HISTORY: Leg pain and swelling. Evaluate for DVT PHYSICIAN(S): Jatin John MD. TECHNIQUE: Duplex sonography and color-flow Doppler with graded compression were used to evaluate the deep venous systems of both lower extremities. The exam is limited by edema FINDINGS: The visualized deep venous systems of both lower extremities are sonographically normal and compressible. Normal wave forms and augmentation are seen. There is no sonographic evidence for deep venous thrombosis in the visualized segments of both lower extremities. IMPRESSION: No sonographic evidence for deep venous thrombosis in the visualized segments of both lower extremities.
--- NOTE | 2017-04-16 22:02 | PN ---
DATE: SUBJECTIVE: The patient is a 71-year-old female. The patient was seen and examined at the bedside, still complaining about pain in the left shoulder, pain in the right foot. Palpitation is better. No nausea or vomiting. No headache. No dizziness. No chest pain. No fever, no chills. PHYSICAL EXAMINATION: VITAL SIGNS: Temperature 97.8, pulse 112, respiratory rate 19, blood pressure 102/62 and pulse oximetry 96%. HEENT: Head; normocephalic, atraumatic. Eyes, PERRLA. Extraocular muscles are intact. Conjunctivae are clear. Nose is patent. Mucous membranes are moist. NECK: Supple. No carotid bruits, JVD or thyromegaly. CHEST: Bilaterally symmetrical. HEART: S1 and S2 positive. LUNGS: Clear to auscultation. ABDOMEN: Soft. Bowel sounds present. No organomegaly. EXTREMITIES: No edema, no cyanosis. NEUROLOGICAL: The patient is awake and alert. Moving all 4 extremities. No focal deficits. MEDICATIONS: DuoNeb, Xanax, amiodarone, aspirin, Lovenox, folic acid, diltiazem, insulin and Lopressor, Singulair, calcium, Bystolic, Adcirca, and Lovaza. LABORATORY DATA: White blood cells noted , hemoglobin 10.5, hematocrit 31.0, platelets 252. Sodium 142, potassium 3.9, BUN 32, creatinine 1.1 and glucose 183. ASSESSMENT AND PLAN: Ms. Brigitte Nance is a 71-year-old female with coronary artery disease, atrial fibrillation, SP ablation, has pain in the right foot, right foot fracture. The patient was seen by Dr. Jatin Cabrera as an outpatient. History of open heart surgery, congestive heart failure, hypertension, chronic obstructive pulmonary disease, history of pneumonia, diabetes mellitus type 1, history of swelling of the leg, history of tonsillectomy, went for dopler of legs , results are pending. Reviewed foot x- ray and chest x-ray. The patient was seen by Dr. Arce after the night and tramadol was given. Cardiology, Dr. Tapia on the case, status post cardiac catheterization, and the patient was informed that grafts are patent. The patient had wide-complex tachycardia, most likely atrial fibrillation with 2:1 conduction. The patient will stay on Eliquis. Discontinue IV amiodarone, started p.o. amiodarone. Started Cardizem. Discussion done with the patient and staff. We will follow up. Marry Mooney MD [facility]ITALMiguel
[2017-04-16] MEDS: TADALAFIL 40 MG PO SCH (22:09)
[2017-04-17] MEDS: diltiaZEM IVPB 100mg in NS 100 ML IV PRN ×2 (06:20→16:39)
--- NOTE | 2017-04-17 08:00 | CON ---
DATE: 04/16/2017 PULMONARY CONSULTATION REFERRING PHYSICIAN: Dr. Mooney. REASON FOR CONSULTATION: Chest pain, shortness of breath, atrial fibrillation, may have sleep apnea syndrome. HISTORY OF PRESENT ILLNESS: This is a 71-year-old female with past medical history significant for coronary artery disease, atrial fibrillation, history of ablation therapy, congestive heart failure, chronic obstructive disease, diabetes, history of anxiety, depression, came into emergency room with palpitation, shortness of breath and chest pain. She has had multiple admissions to [facility], found to have atrial fibrillation with rapid ventricular response. Presently, lying in the bed, feels better. Admits to have loud snoring, daytime sleepy and tired, has short of breath with exertion. PAST MEDICAL HISTORY: As per history of present illness. FAMILY HISTORY: No significant cardiopulmonary disease reported. SOCIAL HISTORY: He stopped smoking many years ago, denying alcohol use. ALLERGIES: NONE KNOWN. MEDICATIONS: He is on aspirin 81 mg daily, calcium plus vitamin D 600 mg twice a day, IV Cardizem, amiodarone 200 mg daily started, DuoNeb q. 6 hours, Breo Ellipta 1 puff daily, folic acid 1 mg daily, insulin coverage, Lipitor 40 mg daily, metoprolol tartrate 25 mg twice a day, Lovaza 2 g daily, Lovenox 100 mg subQ twice a day, Bystolic 25 mg daily, Protonix 40 mg daily, Singulair 10 mg daily, Xanax 0.25 mg twice a day. REVIEW OF SYSTEMS: No headache. No rhinitis. Admits to loud snoring, daytime sleepy and tired. Palpitation is improved. No chest pain at present. No nausea, vomiting, or diarrhea. Does have a leg swelling, shortness of breath, minimal exertion. PHYSICAL EXAMINATION: GENERAL: Lying in bed in no acute distress. VITAL SIGNS: Temperature is 98, heart rate 67, respiratory rate is 21, blood pressure 91/52, pulse ox 96% on room air. HEENT: Moist mucous membrane. Crowded airway. Mallampati score is 4. NECK: Supple. No JVD. LUNGS: Crackles at the bases. Prolonged expiratory phase. HEART: S1 and S2. ABDOMEN: Soft, nontender. No organomegaly. EXTREMITIES: Decreased edema. NEUROLOGIC: Awake, alert, follows simple commands. LABORATORY DATA: Shows hemoglobin 10.5, hematocrit 31.0, WBC is 6.2, platelet is 252, INR 1.50, PTT is 30. Sodium 142, potassium 3.9, chloride 102, bicarbonate 31, BUN 32, creatinine 1.1, glucose 183, calcium 9.2, phosphorus 3.2, magnesium 1.6, AST is 25, ALT 31, alkaline phosphatase is 117, LDH 463, troponin is 1.13, triglyceride 279, albumin is 5.3, TSH is 2.10. Chest x-ray on admission shows no active pulmonary disease. Also x-ray of her foot, which shows an acute fracture is suspected at the base of the 5th metatarsal bone, chronic heel fracture in the third, fourth metatarsal bones is identified and possibly 5th as well. This morning had EKG done, which shows referred wide complex tachycardia. New left bundle branch block versus aberrant conduction, rate is under 14. IMPRESSION AND PLAN: Atrial fibrillation versus atrial flutter. May have obstructive sleep apnea syndrome, chronic lung disease, diabetes, hypertension, hyperlipidemia, coronary artery disease, history of coronary artery bypass surgery, non-Q myocardial infarction. Pulmonary point of view, I will change nebulizer treatment to p.r.n. basis. Keep head at 45 degrees, will require an attended sleep study upon discharge as an outpatient. Cardiology followup. Thank you, and we will follow with you. Raphael Villalba MD
--- NOTE | 2017-04-17 08:40 | RAD ---
PROCEDURE: Cervical Spine Radiographs. HISTORY: Pain. COMPARISON: None. FINDINGS: BONES: Alignment maintained. No fracture. Dens Intact. There is a mild dextroscoliotic deformity inferior cervical spine corrected by a levoscoliotic deformity of the upper thoracic spine. DISC SPACES: Mild multilevel spondylosis appreciated. The study is incomplete due to see obscuring of the C7 and T1 vertebral bodies and also parts of inferior C6 by the shoulders. SOFT TISSUES: Normal. No prevertebral soft tissue swelling. OTHER FINDINGS: None. IMPRESSION: No fracture or spondylolisthesis. Note flexion-extension imaging does not demonstrate any instability of the visualize mid upper cervical spine. No prominent neural foraminal stenosis. Mild multilevel cervical spondylosis. Consider follow-up CT or swimmer's view radiograph to complete this exam at C6 through T1 are not captured the study due to obscuring by the shoulders.
[2017-04-17] MEDS: Omega-3-Acid Ethyl Esters 1 GM Cap PO SCH (10:26)
[2017-04-17] MEDS: Enoxaparin 100 mg Syringe SC SCH ×2 (10:26→20:27)
[2017-04-17] MEDS: Pantoprazole 40 mg EC Tab PO SCH (10:27)
[2017-04-17] MEDS: BYSTOLIC 2.5 MG PO SCH (10:28)
[2017-04-17] MEDS: CALCIUM CARB CITRATE PO SCH ×2 (10:28→17:04)
[2017-04-17] MEDS: Non Formulary Medication (Fluticasone/Vilanterol [Breo Ellipta 100-25 Mcg Inh] 1 POW) IH SCH (10:28)
[2017-04-17] MEDS: VIT D3 PO SCH ×2 (10:28→17:04)
[2017-04-17] MEDS: Insulin Reg-LOW-Coverage SC SCH ×4 (10:40→22:00)
--- NOTE | 2017-04-17 14:48 | PN ---
DATE: 04/17/2017 REFERRING PHYSICIAN: Marry Mooney MD SUBJECTIVE: She is lying in the bed, head at 45 degrees. Night was unremarkable. No headache. No rhinitis. No palpitations. No nausea, vomiting, or diarrhea. No leg pain or leg swelling. PHYSICAL EXAMINATION: GENERAL: In no acute distress. VITAL SIGNS: Temperature 98, heart rate is 96, respiratory rate is 20, blood pressure 99/58, pulse ox 97% on room air. HEENT: Moist mucous membrane. Crowded airway. Mallampati score is IV. NECK: Supple. No JVD. LUNGS: Has a fair airflow with few rhonchi. HEART: S1 and S2. ABDOMEN: Soft, nontender, and nondistended. EXTREMITIES: No edema. NEUROLOGIC: Awake, alert, follows simple commands. MEDICATIONS: She is on aspirin 81 mg daily, also getting calcium plus vitamin D 600 mg twice a day on IV Cardizem drip, amiodarone 200 mg daily, albuterol and Atrovent nebulizer on a p.r.n. basis, folic acid 1 mg daily, Lipitor 40 mg daily, metoprolol tartrate 25 mg twice a day, [place]-3 2 g daily, Lovenox 100 mg subcu q. 12 hours, Protonix 40 mg daily, Singulair 10 mg daily, Adcirca 40 mg at bedtime is added but not given, and Xanax 0.25 mg twice a day. LABORATORY DATA: Shows hemoglobin 10.5, hematocrit 31.7, WBC is 6.2, platelet count is 252. Blood sugar this morning is 190. IMPRESSION AND PLAN: Atrial fibrillation versus atrial flutter. May have obstructive sleep apnea syndrome, chronic lung disease, diabetes, hypertension, hyperlipidemia, coronary artery disease, history of coronary artery bypass surgery, non-Q myocardial infarction. Pulmonary point of view, she is okay. Keep head elevated at 45 degree, may have sleep apnea syndrome. Pulmonary vasodilator as per Cardiology. Gastric prophylaxis. Thank you and we will follow with you. Raphael Villalba MD
--- NOTE | 2017-04-17 15:48 | PN ---
DATE: SUBJECTIVE: The patient denies chest pain. She is currently in sinus rhythm with Mobitz I second degree AV block. PHYSICAL EXAMINATION: VITAL SIGNS: Blood pressure 99/58, heart rate 96, temperature 98, respirations 19. HEENT: Normocephalic. CHEST: Clear. HEART: S1 and S2 regular. EXTREMITIES: No pedal edema. LABORATORY DATA: Blood sugars are 199 and 190 respectively. Venous Doppler of the lower extremities; no sonographic evidence of DVT in the visualized segments. EKG revealed sinus rhythm with Mobitz I second degree AV block and inferolateral ischemic ST-T wave changes. ASSESSMENT AND PLAN: 1. Consider non-ST elevation myocardial infraction. 2. Paroxysmal atrial fibrillation. 3. Uncontrolled diabetes mellitus. 4. Hypertriglyceridemia. CONDITIONS: Continue therapy with subcutaneous Lovenox. Continue aspirin 81 mg once a day, amiodarone 200 mg once a day, Lipitor 40 mg once a day, and Lopressor 25 mg twice a day. Attempts to obtain the most recent cardiac catheterization from [facility] were unsuccessful. The case will be discussed with Dr. Tapia and primary valet runner during this admission for possible cardiac catheterization. Mil Irvin MD
[2017-04-17] MEDS ORDERED: Magnesium Hydroxide Susp 30 ml UD PO PRN (16:24)
[2017-04-17] MEDS ORDERED: POLYETHYLENE GLYCOL 3350 17 GM/Dose PACKET PO ONE (21:54)
[2017-04-17] MEDS: TADALAFIL 40 MG PO SCH (22:05)
--- NOTE | 2017-04-18 00:56 | CON ---
DATE: 04/17/2017 INPATIENT CONSULTATION REASON FOR CONSULTATION: Neck pain. HISTORY OF PRESENT ILLNESS: This is a 71-year-old female who has a history of having left shoulder rotator cuff sprain, who had complaints of neck pain on admission. She says that the pain is actually feeling better. She feels that it is related to her shoulder. She said she will feel it on the base of the neck on the left side at times. She denies any numbness or tingling going down her extremities. She denies any obvious weakness. She does say she has some difficulty with overhead activities with left upper extremity secondary to her shoulder. PHYSICAL EXAMINATION: GENERAL: This is a female in no apparent distress. She is awake, alert and oriented x3. NEUROLOGIC: Neurologically, she is intact in bilateral upper and lower extremities. She has negative Alicia's bilaterally. MUSCULOSKELETAL: Evaluation of the cervical spine, she has some mild lower cervical left paraspinal tenderness to palpation. Range of motion, she has some mild loss of cervical extension without any significant pain. She has good rotation to both sides and full cervical flexion. Evaluation of the left shoulder shows no gross deformity. However, she has a positive Blakely sign. Exam is somewhat limited; however, actively she can forward flex to about 90, passively she can get it about 160 degrees. She has some pain and some breakaway weakness resisted abduction. She has palpable distal pulses. LABORATORY DATA AND IMAGING: X-rays of the cervical spine, x-rays are limited because the lower C6, C7, and T1 are not well-visualized. However, no obvious fractures or dislocations are appreciated. Some mild degenerative changes are noted on multiple levels. No obvious stenosis is appreciated. IMPRESSION: Cervical pain and left shoulder rotator cuff tear. PLAN: At this point, recommend pain medication as needed. Activity as tolerated. She is set to follow up with me in the office in the next 2 weeks. Roger Jamil MD
[2017-04-18] MEDS: diltiaZEM IVPB 100mg in NS 100 ML IV PRN (02:38)
[2017-04-18 08:02] LABS: BASO # 0.02 K/mm3 (0.0-2.0); BASO % 0.3 % (0.0-3.0); EOS # 0.3 (0.0-0.7); EOS % 4.3 % (1.5-5.0); GRAN # 3.66 (1.4-6.5); LYMPH # 2.3 (1.2-3.4); LYMPH % 32.7 % (22.0-35.0); MEAN CELL VOLUME 88.7 fl (80.0-105.0); MEAN CORPUSCULAR HEMOGLOBIN 30.6 pg (25.0-35.0); MEAN CORPUSCULAR HGB CONC 34.5 g/dl (31.0-37.0); MEAN PLATELET VOLUME 10.2 fl (7.0-11.0); MONO # 0.7 (0.1-0.6); MONO % 9.7 % (1.0-6.0); RED CELL DISTRIBUTION WIDTH 13.4 % (11.5-14.5); WHITE BLOOD COUNT 6.9 10^3/ul (4.5-11.0)
[2017-04-18 08:12] LABS: ALB/GLOB RATIO 1.3 (1.1-1.8); ALKALINE PHOSPHATASE 130 U/L (38-126); ALT/SGPT 35 U/L (7-56); AST/SGOT 18 U/L (14-36); BILIRUBIN,TOTAL 0.7 mg/dL (0.2-1.3); BLOOD UREA NITROGEN 23 mg/dL (7-21); CALCIUM 9.4 mg/dL (8.4-10.5); CARBON DIOXIDE 31 mmol/L (21-33); CHLORIDE 102 mmol/L (98-107); GFR AFRICAN-AMERICAN > 60; PHOSPHOROUS 2.7 mg/dL (2.5-4.5); POTASSIUM 4.8 mmol/L (3.6-5.0); SODIUM 139 mmol/L (132-148); TOTAL PROTEIN 6.3 g/dL (5.8-8.3)
[2017-04-18 08:20] LABS: GLUCOSE,RANDOM 318 mg/dL (70-110)
[2017-04-18 08:25] LABS: TROPONIN I 0.24 ng/mL
[2017-04-18] MEDS: Insulin Reg-LOW-Coverage SC SCH ×4 (08:39→21:56)
[2017-04-18] MEDS: Enoxaparin 100 mg Syringe SC SCH (08:40)
--- NOTE | 2017-04-18 09:04 | CARD ---
APPROVED REPORT EKG Measurement Heart [id number] <Conclusion> Sinus rhythm with 1st degree AV block Left axis deviation Septal infarct, age undetermined ST & T wave abnormality c/w ischemia No change
[2017-04-18] MEDS: VIT D3 PO SCH ×2 (10:43→18:03)
[2017-04-18] MEDS: CALCIUM CARB CITRATE PO SCH ×2 (10:43→18:03)
[2017-04-18] MEDS: BYSTOLIC 2.5 MG PO SCH (10:45)
[2017-04-18] MEDS: Non Formulary Medication (Fluticasone/Vilanterol [Breo Ellipta 100-25 Mcg Inh] 1 POW) IH SCH (10:45)
[2017-04-18] MEDS: Omega-3-Acid Ethyl Esters 1 GM Cap PO SCH (10:47)
[2017-04-18] MEDS: Pantoprazole 40 mg EC Tab PO SCH (10:47)
--- NOTE | 2017-04-18 15:57 | CARD ---
APPROVED REPORT EXAM: Two-dimensional and M-mode echocardiogram with Doppler and color Doppler. INDICATION Chest Pain LVFX 2D DIMENSIONS Left Atrium (2D)4.3 (1.6-4.0cm)IVSd1.0 (0.7-1.1cm) LVDd4.6 (3.9-5.9cm)PWd1.2 (0.7-1.1cm) M-Mode DIMENSIONS Aortic Root3.30 (2.2-3.7cm)Aortic Cusp Exc.1.50 (1.5-2.0cm) Aortic Valve AoV Peak Frrpbgsk521.0cm/Yohana Peak GR.6mmHg Mitral Valve MV E Cshcgkay159.0cm/sMV A Lrzblzqn02.7cm/sE/A ratio2.2 TDI Lateral E' Peak V10.50cm/sMedial E' Peak V4.97cm/sE/Lateral E'13.5 E/Medial E'28.6 Pulmonary Valve PV Peak Mbhnzrft32.5cm/sPV Peak Grad.2mmHg Tricuspid Valve TR Peak Vfmdscrv627vy/sRAP DGPUIUJO31ffOfYB Peak Gr.47mmHg [id number] LEFT VENTRICLE The left ventricle is normal size. There is normal left ventricular wall thickness. The systolic function is mildly impaired.EF-35-40% There is moderate to severe hypokinesis in the mid-anteroseptal wall. Transmitral Doppler flow pattern is Grade III-reversible restrictive diastolic dysfunction. No left ventricle thrombus noted on this study. There is no ventricular septal defect visualized. There is no left ventricular aneurysm. RIGHT VENTRICLE The right ventricle is normal size. There is normal right ventricular wall thickness. The right ventricular systolic function is normal. ATRIA The left atrium is mildly dilated. The right atrium size is normal. The interatrial septum is intact with no evidence for an atrial septal defect. AORTIC VALVE The aortic valve is normal in structure. There is trace aortic regurgitation. There is no aortic valvular stenosis. There is no aortic valvular vegetation. MITRAL VALVE The mitral valve is thickened but opens well. Mitral regurgitation is moderate. Papillary Muscles Dysfunction C/w CAD There is no mitral valve stenosis. There is no evidence of mitral valve prolapse. TRICUSPID VALVE The tricuspid valve leaflets are thickened , but open well. There is mild to moderate tricuspid regurgitation.RVSP-57 mmof hg. There is no tricuspid valve stenosis. There is no tricuspid valve prolapse or vegetation. PULMONIC VALVE The pulmonic valve is mildly thickened. There is trace pulmonic valvular regurgitation. There is no pulmonic valvular stenosis. GREAT VESSELS The aortic root is normal in size. The ascending aorta is normal in size. The pulmonary artery is normal. The IVC is normal in size and collapses >50% with inspiration. PERICARDIAL EFFUSION There is no pleural effusion. There is no pericardial effusion. <Conclusion> The left ventricle is normal size. There is normal left ventricular wall thickness. The systolic function is mildly impaired.EF-35-40% There is trace aortic regurgitation. Mitral regurgitation is moderate. Papillary Muscles Dysfunction C/w CAD There is mild to moderate tricuspid regurgitation.RVSP-57 mmof hg. The IVC is normal in size and collapses >50% with inspiration. There is no pericardial effusion.
--- NOTE | 2017-04-18 16:51 | PN ---
DATE: 04/18/2017 REASON FOR CONSULTATION: Followup wide complex tachycardia, A-flutter with rapid ventricular rate, now A-flutter 2:1 conduction. SUBJECTIVE: The patient denies any chest pain, shortness of breath, or any palpitation. OBJECTIVE: GENERAL: Lying flat in the bed. VITAL SIGNS: As follows; temperature afebrile, heart rate 87, and blood pressure 136/87. HEENT: PERRLA. Extraocular muscles intact. NECK: Supple. No carotid bruit or thyromegaly. CHEST: Clear to auscultation. HEART: S1 and S2, regular. ABDOMEN: Soft. EXTREMITIES: Clubbing and cyanosis negative. LABORATORY DATA: Blood workup as follows: WBC 6.9, hemoglobin 11.4, hematocrit 33.0, and platelet count 268. Chemistry shows sodium 139, potassium 4.0, chloride 102, carbon dioxide 31, anion gap of 11, BUN 23 and creatinine 1.0. Troponin is 0.24. IMPRESSION: Wide complex tachycardia; atrial flutter; diabetes; hypertension; hyperlipidemia; coronary artery disease, status post coronary artery bypass grafting; positive troponin; non-ST segment myocardial infraction versus leak of troponin secondary to atrial flutter with rapid ventricular rate, admitting heart rate was 200, history of recent catheterization by Dr. Singh at [facility] beginning of this year and found to be patent graft. RECOMMENDATION: Discussed with Dr. Horn, telephone number possible transfer to [facility] for ablation for atrial flutter and possible cardiac catheterization here. Dr. Horn says the patient had no significant CAD, patent graft, does not want cardiac catheterization to be done, also nor wants ablation, wanted to be JORGE LUIS cardioverted. The patient remained in atrial flutter. We will discontinue Lovenox, change to Eliquis 6 a.m. and 6 p.m., change Cardizem to CD. First, we will change Cardizem IV to p.o. 60 mg q.6 and from tomorrow Cardizem CD 180 mg daily, put Coreg and EKG and echo. If he still remains in atrial flutter, we will do the JORGE LUIS cardiovert tomorrow. We will discuss with Dr. Mooney. Discussed with the family and discussed with the patient. Dr. Horn, who is epic specialist who did the radio-frequency ablation and does not want to be ablate again and wanted to be seen in office after JORGE LUIS cardioversion. We will get EKG because the EKG is reported at one point sinus rhythm is back to AFib. If the patient remained still in atrial flutter after the IV loading, then we will do JORGE LUIS cardiovert tomorrow. We will keep n.p.o. for JORGE LUIS cardioversion in the morning. We will discuss with daughter and we will discuss with you. Thank you Dr. Mooney for providing us the opportunity in taking care of the patient. Raphael Tapia MD
--- NOTE | 2017-04-18 21:44 | CARD ---
APPROVED REPORT EKG Measurement Heart [id number] <Conclusion> Atrial flutter with variable conduction Anterior infarct, age undetermined ST & T wave abnormality, consider inferolateral ischemia or digitalis effect Abnormal ECG
[2017-04-18] MEDS: TADALAFIL 40 MG PO SCH (22:02)
--- NOTE | 2017-04-18 22:28 | PN ---
PULMONARY PROGRESS NOTE DATE: 04/18/2017 REFERRING PHYSICIAN: Marry Mooney MD SUBJECTIVE: She is lying in the bed. Feels okay. No headache. No rhinitis. No chest pain. No palpitation. No nausea or vomiting. No diarrhea. No leg pain or leg swelling. Admits to have loud snoring at nighttime, daytime sleepy and tired. OBJECTIVE: GENERAL: In no acute distress. VITAL SIGNS: Temperature 98, heart rate is 87, respiratory rate is 20 and blood pressure 136/87. HEENT: Moist mucous membrane. Crowded airway. Mallampati score is IV. NECK: Supple. No JVD. LUNGS: Has a fair airflow with rhonchi. HEART: S1 and S2. ABDOMEN: Soft and nontender. No organomegaly. EXTREMITIES: No edema. NEUROLOGIC: Awake, alert and follows simple commands. MEDICATIONS: She is on Cardizem 60 mg q.i.d., also amiodarone 200 mg daily, Coreg 3.125 mg twice a day, DuoNeb q. 6 hour, Eliquis 5 mg twice a day, also getting folic acid 1 mg daily, insulin coverage, Lipitor 40 mg daily, Lovaza 2 g daily, milk of magnesia p.r.n. basis, Protonix 20 mg daily, Singulair 10 mg daily, Adcirca 40 mg at bedtime, which is on hold and Xanax 0.25 mg twice a day. LABORATORY DATA: Shows hemoglobin 11.4, hematocrit 33.0, WBC is 6.9 and platelet is 268. Sodium 130, potassium 4.8, chloride 102, bicarbonate 31, BUN 23, creatinine 1.0, glucose 284, calcium is 9.4, phosphorus 2.7, magnesium 2.0, AST is 18, ALT 35 and alkaline phosphatase is 130. Troponin is 0.24, albumin is 3.5. Had echocardiogram done, which shows right ventricular systolic pressure is 57. LV ejection fraction is 35%-40%. No pericardial effusion reported. IMPRESSION AND PLAN: Atrial fibrillation versus atrial flutter, obstructive sleep apnea syndrome, chronic obstructive lung disease, diabetes, hypertension, hyperlipidemia, coronary artery disease, history of coronary artery bypass surgery in the past, non-Q myocardial infarction. Echocardiogram shows cardiomyopathy and pulmonary hypertension. Case discussed with the patient and the patient's daughter in detail. She definitely need a sleep study upon discharge. She is scheduled for cardioversion tomorrow and after cardioversion, we will consider placing her on continuous positive airway pressure while she is in the hospital. She is claustrophobic and claiming that she may not like the mask, but as an outpatient could be treated with nasal pillow mask. If sedated, need close cardiopulmonary monitoring. Thank you. We will follow with you. Raphael Villalba MD
--- NOTE | 2017-04-19 03:01 | PN ---
DATE: SUBJECTIVE: The patient was seen and examined early in the morning, looks better, shoulder pain is better, and foot pain is better. No nausea, vomiting, or diarrhea. No headache. No dizziness. No chest pain. No palpitation. No fever. No chills. PHYSICAL EXAMINATION: VITAL SIGNS: Heart rate 87, blood pressure 136/87, and respiratory rate 20. HEENT: Head is normocephalic and atraumatic. Eyes; PERRLA. Extraocular muscles intact. Conjunctivae clear. Nose patent. Mucous membrane moist. NECK: Supple. No carotid bruit, JVD or thyromegaly. CHEST: Bilaterally symmetrical. HEART: S1 and S2 positive. LUNGS: Clear to auscultation. ABDOMEN: Soft. Bowel sounds positive. EXTREMITIES: No edema. No cyanosis. NEUROLOGIC: The patient is awake, alert, and moving all 4 extremities. No focal deficits. LABORATORY DATA: White blood cell 6.9, hemoglobin 11.4, hematocrit 33, and platelets of 268. Sodium 139, potassium 4.0, BUN 23, creatinine 1.0, and troponin 0.24. ASSESSMENT AND PLAN: Ms. Brigitte Nance is a 71-year-old lady with wide complex tachycardia, atrial fibrillation, diabetes mellitus not very well controlled, hypertension, hypercholesterolemia, coronary artery disease, status post coronary artery bypass grafting, positive troponin, and non-ST segment myocardial infarction versus leak of troponin secondary to atrial flutter with rapid ventricular rate as per Dr. Tapia. Admitting heart rate was 200. History of recent catheterization by Dr. Singh at [facility] beginning of this year and found her to be patent grafts, history of left shoulder pain, right foot pain, Orthopedic and Podiatry is on the case, and lap layer is on the case. Length of time discussion done with Dr. Tapia, first plan was to transfer the patient to [facility], but then Dr. Tapia spoke to the patient's lap layer, the patient is going for procedure tomorrow. Dr. Tapia spoke to pt lap layer Dr. Horn possibly transfer for ablation, for atrial flutter and possibly cardiac catheterization here, Dr. Horn says that the patient had no significant coronary artery disease, patent graft, does not want cardiac catheterization to be done, also nor wants ablation, wanted to be JORGE LUIS cardioverter and Dr. Tapia will do that plan. Remained atrial flutter. If remained atrial flutter, we will discontinue the Lovenox and change to Eliquis. Change Cardizem CD and may be we will start Cardizem IV tomorrow. If she still remains in atrial flutter, we will do the JORGE LUIS cardiovert tomorrow. Dr. Tapia spoke to the patient's family. Dr. Horn, the patient's lap layer do not want ablation again, wanted to see the patient in office after JORGE LUIS cardioversion. Gastrointestinal and deep venous thrombosis prophylaxis. Repeat labs. We will followup. Marry Mooney MD MTDD
--- NOTE | 2017-04-19 08:15 | CON ---
DATE: 04/18/2017 TIME OF CONSULTATION: 0715 hours. LOCATION OF CONSULTATION: Room 264, bed 1. REASON FOR CONSULTATION: The patient has been admitted with AFib and palpitations approximately 48 hours prior through the ED and has the right foot in a cast with a history of fracture, currently under care by me. HISTORY OF PRESENT ILLNESS: The patient had sustained a fall at home and multiple fractures at the metatarsal level of the right foot. These were closed fractures, which had been treated initially with splinting by the ED Department at [facility]. The patient followed up with me where she was put into a short leg walking cast for approximately 3 weeks and has been left 3 weeks in a Cam walking boot on the right leg. The wounds have been improving at a slow rate because of the patient's prior medical history including diabetes and obesity. PAST MEDICAL HISTORY: Significant for coronary artery disease and a CABG procedure performed at [facility] in 1999, with significant history of ischemic cardiac disease and subsequent catheterization. Additionally significant for hypertension, hyperlipidemia, diabetes with an element of peripheral neuropathy and obesity with gait weakness. PAST SURGICAL HISTORY: As per medical history of coronary artery bypass surgery and coronary stents. CURRENT MEDICATIONS: Include insulin, Eliquis, Bystolic, Lexapro, and atorvastatin. SOCIAL HISTORY: Negative for tobacco use and alcohol abuse. REVIEW OF SYSTEMS: Essentially negative except for her recent orthopedic shoulder and neck complaints; although, she says she is somewhat better now. PHYSICAL EXAMINATION: GENERAL: The patient is sleeping at bedside when I arrived. She is awakened and alert and responsive to questioning, in no acute distress. VITAL SIGNS: Stable. EXTREMITIES: Lower extremity evaluation reveals improvement in her chronic bilateral edema. Her extremities are warm, weak pulses. No evidence of decubitus or ulceration formation. There is edema about the right forefoot at the level of the metatarsal and some tenderness to palpation. There is no calf tenderness with palpation or ankle dorsiflexion. LABORATORY DATA: Reviewed. Significant for her elevated blood sugar levels and the radiography is reviewed of the right foot indicating evidence of bone callus formation and healing at all 3 fracture sites, but incomplete especially at the level of the fifth metatarsal base on the right foot. IMPRESSION: A geriatric female, in no acute distress, recovering from a flare up of her atrial fibrillation, currently under cardiac and medical workup and management with fractures on the right foot, still undergoing cath treatment. PLAN: The patient remains ambulatory on the right side so long as maintaining continuous use of her Cam walking boot for control of the fractures. We will encourage whatever level of activity, medicine and cardiology deems appropriate as long as the cast boot is utilized. We expressed this clearly to the patient that we will need an additional several weeks of therapy because of the slow healing most likely secondary to her diabetic status. We will attempt to correct some additional diabetic numbers on her and encourage her to improve her diabetic glucose control. During this hospitalization, we will follow up with this patient post-discharge in our office in approximately 3 weeks for re-imaging of the fractures on the right foot. Jatin Cabrera DPM
[2017-04-19] MEDS: Insulin Reg-LOW-Coverage SC SCH ×3 (08:18→17:37)
[2017-04-19] MEDS ORDERED: Metoprolol 1 mg/ml Inj IVP ONE (09:36)
[2017-04-19] MEDS ORDERED: Midazolam 2 MG/2 ML VIAL ONE (09:36)
[2017-04-19] MEDS ORDERED: Flumazenil 0.1 mg/ml Inj (5ml) IVP ONE ×2 (09:36→10:05)
[2017-04-19] MEDS ORDERED: Naloxone 0.4 mg/ml Inj (Adult) ONE (09:37)
[2017-04-19] MEDS ORDERED: Midazolam 2 MG/2 ML VIAL IV ONE ×3 (09:40→09:54)
[2017-04-19] MEDS ORDERED: diltiaZEM 180 mg/24 Hours CD Cap PO SCH (10:00)
[2017-04-19] MEDS ORDERED: Sodium Chloride 0.9% 1,000 ML IV SCH (10:15)
[2017-04-19 10:35] VITALS: O2SAT 98
[2017-04-19] MEDS: Insulin Detemir 100 units/ml Vial (Levemir) SC SCH ×2 (12:30→17:36)
[2017-04-19] MEDS: Omega-3-Acid Ethyl Esters 1 GM Cap PO SCH (12:34)
[2017-04-19] MEDS: Pantoprazole 40 mg EC Tab PO SCH (12:34)
[2017-04-19] MEDS: Non Formulary Medication (Fluticasone/Vilanterol [Breo Ellipta 100-25 Mcg Inh] 1 POW) IH SCH (12:35)
[2017-04-19] MEDS: CALCIUM CARB CITRATE PO SCH ×2 (12:39→17:48)
[2017-04-19] MEDS: VIT D3 PO SCH ×2 (12:39→17:48)
--- NOTE | 2017-04-19 12:46 | CARD ---
APPROVED REPORT EXAM: Transesophageal echocardiogram with color flow Doppler and Synchronized Cardioversion. INDICATION Atrial Fibrillation R/O THROMBUS Mitral Valve E/A ratio0.0 TDI E/Lateral E'0.0E/Medial E'0.0 Tricuspid Valve TR Peak [id number]/sRAP [id number] Peak Gr.42mmHg [id number] Reason For Test : Rule out Intracardiac Thrombus, before Cardioiversion. PROCEDURE After obtaining informed consent, patient underwent transesophageal echo in the Echo Lab. Type of Sedation : Conscious Sedation Sedation was administered by DR. Tapia. Sedation was achieved with Versed and , Fentanyl 3mg and 150 mcg intravenously. Transesophageal probe was inserted and advanced into esophagus without difficulty. Echo enhancement indication: R/O Septal defect. Echo enhancement agent administered: Agitated Saline The JORGE LUIS was performed complications. Synchronized Cardioversion attempted: Successful Synchronized Cardioversion acheived with 200 Joules after first attempt(s). Rhythm following Synchronized Cardioversion: Throughout the procedure, the blood pressure, pulse oximetry, cardiac rhythm, and rate were monitored. The patient tolerated the procedure without adverse effects. Recovery from conscious sedation was uneventful and vital signs were stable. LEFT VENTRICLE The left ventricle is normal size. There is mild left ventricular hypertrophy. Left ventricle systolic function is mildly to moderately impaired.EF-35-40% ( A fib) There is mild to moderate hypokinesis in the mid-anteroseptal wall. A fib No left ventricle thrombus noted on this study. There is no ventricular septal defect visualized. There is no left ventricular aneurysm. RIGHT VENTRICLE The right ventricle is mildly dilated. There is normal right ventricular wall thickness. Systolic function is mildly to moderately reduced. ATRIA The left atrium is moderately dilated. The right atrium is mildly dilated. The interatrial septum is intact with no evidence for an atrial septal defect. AORTIC VALVE The aortic valve is mildly thickened. There is trace aortic regurgitation. There is no aortic valvular stenosis. There is no aortic valvular vegetation. MITRAL VALVE The mitral valve leaflets are thickened. There is no evidence of mitral valve prolapse. There is no mitral valve stenosis. Mitral regurgitation is moderate. TRICUSPID VALVE The tricuspid valve leaflets display thickening. There is mild to moderate tricuspid regurgitation.RVSP-54 mmof Hg. There is no tricuspid valve prolapse or vegetation. There is no tricuspid valve stenosis. PULMONIC VALVE The pulmonic valve is mildly thickened. There is trace pulmonic valvular regurgitation. There is no pulmonic valvular stenosis. GREAT VESSELS The aortic root is normal in size. The ascending aorta is normal in size. The pulmonary artery is normal. The IVC is normal in size and collapses >50% with inspiration. PERICARDIAL EFFUSION There is no pericardial effusion. There is no pleural effusion. <Conclusion> Left ventricle systolic function is mildly to moderately impaired.EF-35-40% ( A fib). Bi-atrial enlargement. There is trace aortic regurgitation. There is no evidence of mitral valve prolapse. There is mild to moderate tricuspid regurgitation.RVSP-54 mmof Hg. Intact intra atrial septum by color flow and bubble study. Velocity in MATIAS >0.4 m/s Mild plaque in Descending aorta.no cotra indication to Cardioversion. 200 joules Synch. CV done pt converted to NSR. CC; Dr. Mooney/ [facility].
[2017-04-19] MEDS: BYSTOLIC 2.5 MG PO SCH (14:05)
--- NOTE | 2017-04-19 16:34 | CARD ---
APPROVED REPORT EKG Measurement Heart [id number] <Conclusion> Sinus bradycardia with marked sinus arrhythmia Left axis deviation Anterior infarct, age undetermined ST & T wave abnormality, consider inferolateral ischemia Abnormal ECG
--- NOTE | 2017-04-19 16:42 | CARD ---
APPROVED REPORT EKG Measurement Heart [id number] <Conclusion> Sinus tachycardia with 1st degree AV block vs Atrial Flutter Left axis deviation Pulmonary disease pattern Septal infarct, age undetermined ST & T wave abnormality, consider inferolateral ischemia Abnormal ECG
[2017-04-19 17:42] VITALS: BP 130/59
[2017-04-19 17:52] VITALS: RESP 19; TEMP 98.2
[2017-04-19 20:11] VITALS: PULSE 63
--- NOTE | 2017-04-20 01:32 | PN ---
DATE: 04/19/2017 PULMONARY PROGRESS NOTE REFERRING PHYSICIAN: Marry Mooney MD. SUBJECTIVE: The patient is lying on the bed. Day was unremarkable. She had a cardioversion done today. Presently, no chest pain, no nausea, no vomiting, and no diarrhea, leg pain, or leg swelling. OBJECTIVE: GENERAL: In no acute distress. VITAL SIGNS: Temperature is 98, heart rate is 89, respiratory rate is 18, blood pressure is 130/59, and pulse ox is 98% on 3 liters nasal cannula. HEENT: Moist mucous membrane. Crowded airway. Mallampati score is 4. NECK: Supple. No JVD. LUNGS: Fair airflow with rhonchi. HEART: S1 and S2. ABDOMEN: Soft and nontender. No organomegaly. EXTREMITIES: There is no edema. NEUROLOGIC: Awake, alert, and follow simple command. MEDICATIONS: Review noted. No new changes in medications reported since yesterday. LABORATORY DATA: Reviewed and blood sugar this morning about 369 and hemoglobin A1c is 10.9. DIAGNOSTIC DATA: She had a echocardiogram done this morning showed LV ejection fraction of 35% to 40% in atrial fibrillation. The patient received 200 joules synchronized with cardiac rhythm converted to normal sinus rhythm. Right ventricular systolic pressure is 54. IMPRESSION AND PLAN: Atrial fibrillation/flutter, status post cardioversion presently sinus rhythm; obstructive sleep apnea syndrome, chronic obstructive lung disease, diabetes, hypertension, hyperlipidemia, coronary artery disease, history of coronary artery bypass surgery in the past, non-Q wave myocardial infarction, pulmonary hypertension, cardiomyopathy with decreased left ventricular function. Case discussed with the patient and , all the questions answered. The patient will be going to subacute for continued care. Will need to attend a sleep study. Spoke about sleep apnea and to cardiac arrhythmia. Continue gastric prophylaxis, anticoagulation, fall precautions, sleep apnea precautions, care for sedation. We will follow as outpatient. Raphael Villalba MD
--- NOTE | 2017-04-20 03:10 | PN ---
DATE: SUBJECTIVE: The patient is a 71-year-old female. The patient is seen and examined on the bedside, looking comfortable, having lunch. Went for cardioverter by Dr. Tapia and got sinus rhythm. No nausea, vomiting or diarrhea. No hematuria or hematochezia. No swelling of the legs. No chest pain or palpitation. No headache. No dizziness. PHYSICAL EXAMINATION: VITAL SIGNS: Temperature 98.2, pulse 89, blood pressure 130/59, respiratory rate 19. HEENT: Head: Normocephalic and atraumatic. Eyes: PERRLA. Extraocular muscles intact. Conjunctivae clear. Nose patent. Mucous membrane moist. NECK: Supple. No carotid bruits, JVD or thyromegaly. CHEST: Bilaterally symmetrical. HEART: S1 and S2 positive. LUNGS: Clear to auscultation. ABDOMEN: Soft. Bowel sounds present. No organomegaly. EXTREMITIES: No edema. No cyanosis. NEUROLOGIC: The patient is awake and alert. Moving all 4 extremities. No focal deficit. LABORATORY DATA: White blood cells 6.9, hemoglobin 11.4, hematocrit 33.0, platelets 268. Glucose 369, 333, 389. Hemoglobin A1c is 10.9. MEDICATIONS: Cardizem, Cordarone, Coreg, DuoNeb, Eliquis, folic acid, insulin, Levemir, Lipitor, Lovaza, Protonix, Singulair, Adcirca, Xanax. ASSESSMENT AND PLAN: Ms. Brigitte Nance is a 71-year-old female with insulin-dependent diabetes mellitus, not controlled. Hemoglobin A1c is 10.9, anemia, went for cardiovert today by Dr. Tapia. She is in atrial fibrillation with severe atrial flutter, obstructive sleep apnea syndrome, chronic obstructive lung disease, hypertension, hypercholesterolemia, coronary artery disease, history of coronary artery bypass surgery in the past, non-Q-wave myocardial infarction, cardiomyopathy, pulmonary hypertension. length of time discussion done with patient's daughter. V/Q study upon discharge. The patient needs BiPAP, but the patient is claustrophobic, she said she do not want that mask. History of foot pain, seen by Dr. Jatin Cabrera. The patient lives alone, is not able to take care of herself. Pain in the shoulder, pain in the foot and shortness of breath. Physical therapy recommended subacute rehab. We will continue present treatment. Repeat labs. We will follow up. Marry Mooney MD JOSÉ
--- NOTE | 2017-04-20 08:41 | PN ---
DATE: 04/19/2017 REASON FOR CONSULTATION AND FOLLOWUP: Wide complex tachycardia, atrial flutter with variable conduction. SUBJECTIVE: The patient denies any chest pain, shortness of breath, or any palpitation. The patient underwent a JORGE LUIS cardioversion into normal sinus. PHYSICAL EXAMINATION: VITAL SIGNS: As follows: Temperature afebrile, heart rate 65, blood pressure . HEENT: PERRLA. Extraocular muscles intact. NECK: Supple. No carotid bruit or thyromegaly. CHEST: Clear to auscultation. HEART: S1 and S2, regular. ABDOMEN: Soft. EXTREMITIES: Clubbing and cyanosis negative. CURRENT MEDICATIONS: The patient is on Cardizem 180 mg daily, amiodarone 200 mg, and Coreg 3.125 mg daily. LABORATORY DATA: WBC 6.9, hemoglobin 11.4, hematocrit 33.0, and platelet count 268. Chemistry shows sodium 130, potassium 4.0, chloride 102, carbon dioxide 31, anion gap of 11, BUN 23, and creatinine 1.0. IMPRESSION: A 71-year-old female with past medical history significant for coronary artery disease, coronary artery bypass graft five vessels at [facility], history of recent catheterization at [facility], patent graft, admitted with wide complex tachycardia, atrial flutter with variable block, history of recent radiofrequency ablation with Dr. Horn at [facility], history of cardiac catheterization by Dr. Singh at [facility], coronary artery disease, patent bypass graft. I discussed with Dr. Horn yesterday for possible transfer to [facility] for possible restudy and ablation. The patient since then was loaded with amiodarone so we attempted this morning JORGE LUIS cardioversion. The patient successfully converted to normal sinus with 200 Joules. PLAN: Continue amiodarone, continue Cardizem, and possible discharge home today on Eliquis. The patient was at home on Eliquis. We will continue on Eliquis and follow with Dr. Horn in one week. We will discuss with Dr. Mooney. Discussed with family, two daughters, Gina and Kamla. JORGE LUIS CARDIOVERSION: The patient underwent this morning JORGE LUIS cardioversion with ejection fraction 35% to 40%. No absolute contraindication to cardioversion noted. A 200 Joules synchronized cardioversion done. The patient converted to normal sinus. Moderate MR, moderate TR, RV systolic pressure 54, trace AR, and pulmonary insufficiency. Thank you Dr. Mooney for providing us the opportunity in taking care of the patient, Brigitte Nance. Raphael Tapia MD
== END 2017-04-19 20:23 | DRG 309 ==
LOC: ED 15:02 → ERH 17:26 → 2RNO 19:04
PROVIDERS: ADMIT Internal Medicine; ATTEND Internal Medicine
PROC: 5A2204Z Restoration of Cardiac Rhythm, Single (ICD-10-PCS; 2017-04-19)
PROC: B246ZZ4 Ultrasonography of Right and Left Heart, Transesophageal (ICD-10-PCS; principal; 2017-04-19 10:00)
DX: I48.0 Paroxysmal atrial fibrillation (principal); Z68.42 Body mass index [BMI] 45.0-49.9, adult; E11.42 Type 2 diabetes mellitus with diabetic polyneuropathy; I11.0 Hypertensive heart disease with heart failure; I50.9 Heart failure, unspecified; E11.65 Type 2 diabetes mellitus with hyperglycemia; I27.20 Pulmonary hypertension, unspecified; J44.9 Chronic obstructive pulmonary disease, unspecified; M19.90 Unspecified osteoarthritis, unspecified site; I48.92 Unspecified atrial flutter; I25.10 Atherosclerotic heart disease of native coronary artery without angina pectoris; F32.9 Major depressive disorder, single episode, unspecified; M25.512 Pain in left shoulder; E66.9 Obesity, unspecified; I44.7 Left bundle-branch block, unspecified; E78.5 Hyperlipidemia, unspecified; G47.33 Obstructive sleep apnea (adult) (pediatric); E78.1 Pure hyperglyceridemia; I44.1 Atrioventricular block, second degree; I25.5 Ischemic cardiomyopathy; J98.4 Other disorders of lung; M75.102 Unspecified rotator cuff tear or rupture of left shoulder, not specified as traumatic; F41.9 Anxiety disorder, unspecified; M54.2 Cervicalgia; S92.301D Fracture of unspecified metatarsal bone(s), right foot, subsequent encounter for fracture with routine healing; W19.XXXD Unspecified fall, subsequent encounter; Z95.5 Presence of coronary angioplasty implant and graft; Z95.1 Presence of aortocoronary bypass graft; I25.2 Old myocardial infarction; Z87.891 Personal history of nicotine dependence; Z79.4 Long term (current) use of insulin

== ENCOUNTER 2017-05-07 13:41 | Inpatient (IN) | payer MEDICARE, BC ==
[2017-05-07 13:46] VITALS: BMI 41.4
[2017-05-07] MEDS ORDERED: Sodium Chloride 0.9% 1,000 ML IV STA (14:14)
[2017-05-07] MEDS ORDERED: Pantoprazole 40 MG in Sodium Chloride 0.9% 100 ML IV STA (14:14)
--- NOTE | 2017-05-07 14:23 | ED PDOC ---
Arrival/HPI - General Chief Complaint: GI Problem Time Seen by Provider: 05/07/17 13:44 Historian: Patient, Family - History of Present Illness Narrative History of Present Illness (Text): 05/07/17 14:06 A 71 year old female, whose past medical history includes Diabetes Mellitus, pulmonary hypertension, pneumonia, atrial fibrillation with rapid ventricular response, and hyperglycemia, is brought to the emergency department via EMS accompanied by daughter from [facility] for complaints of nausea, vomiting, and diarrhea, which began 3 days ago. The patient admits to having anxiety, she denies any cough, fever, chest pain, shortness of breath, or any other complaints at this time. Time/Duration: < week (x 3 days ) Symptom Onset: Gradual Symptom Course: Unchanged Activities at Onset: Rest, Light Context: Other ([facility] ) Associated Symptoms (Text): 05/07/17 14:27 From the shelter via ambulance complaining of a 3 day history of nausea vomiting and diarrhea. No abdominal pain. No chest pain palpitations or dyspnea. No back pain. No fever or chills. Past Medical History - Provider Review Nursing Documentation Reviewed: Yes - Infectious Disease Hx of Infectious Diseases: None - Tetanus Immunization Tetanus Immunization: Unknown - Reproductive Menopause: Yes - Cardiac Hx Cardiac Disorders: Yes (CABG,OPEN HEART,CAD S/P ABLATION.) Hx Circulatory Problems: Yes Hx Congestive Heart Failure: Yes Hx Hypertension: Yes - Pulmonary Hx Respiratory Disorders: Yes (denies pe, has home o2) Hx Chronic Obstructive Pulmonary Disease (COPD): Yes Hx Pneumonia: Yes - Neurological Hx Neurological Disorder: No - HEENT Hx HEENT Disorder: No - Renal Hx Renal Disorder: No - Endocrine/Metabolic Hx Endocrine Disorders: Yes Hx Diabetes Mellitus Type 1: Yes - Hematological/Oncological Hx Blood Disorders: No - Integumentary Hx Dermatological Disorder: Yes Other/Comment: left lower leg red and +2 edema with dry flakey skin to foot and lower leg, right lower extremity less red +3 pitting edema to foot with dry flakey skin. Pt stated" My legs have been like this since after my open heart sx". - Musculoskeletal/Rheumatological Hx Musculoskeletal Disorders: Yes Hx Arthritis: Yes Hx Falls: Yes (LAST FALL-JANUARY 2017) - Gastrointestinal Hx Gastrointestinal Disorders: No - Genitourinary/Gynecological Hx Genitourinary Disorders: Yes (C/S X 1) - Psychiatric Hx Psychophysiologic Disorder: Yes Hx Anxiety: Yes Hx Depression: Yes Hx Substance Use: No - Surgical History Hx Open Heart Surgery: Yes Other/Comment: rt foot fracture + splint - Anesthesia Hx Anesthesia Reactions: No - Suicidal Assessment Feels Threatened In Home Enviroment: No Family/Social History - Physician Review Nursing Documentation Reviewed: Yes Family/Social History: No Known Family HX Smoking Status: Former Smoker Hx Alcohol Use: No Hx Substance Use: No Hx Substance Use Treatment: No Allergies/Home Meds Allergies/Adverse Reactions: Allergies No Known Allergies Allergy (Verified 05/07/17 13:54) Home Medications: Home Meds Medication Instructions Recorded Confirmed Alprazolam 0.25 mg PO BID 09/10/14 04/15/17 Atorvastatin [Lipitor] 40 mg PO DAILY 09/10/14 04/15/17 Escitalopram [Lexapro] 20 mg PO DAILY 09/10/14 04/15/17 Furosemide 60 mg PO DAILY 09/10/14 04/15/17 Insulin Glargine,Hum.rec.anlog 55 units SUBCUT ACB 09/10/14 04/15/17 [Lantus] Apixaban [Eliquis] 5 mg PO BID 04/15/17 04/15/17 Calcium Carb, Citrate/Vit D3 600 mg PO BID 04/15/17 04/15/17 [Calcium + D3 ER Tablet] Escitalopram Oxalate [Escitalopram] 20 mg PO DAILY 04/15/17 04/15/17 Fluticasone/Vilanterol [Breo 1 pow IH DAILY 04/15/17 04/15/17 Ellipta] Folic Acid 1 mg PO DAILY 04/15/17 04/15/17 Insulin Glargine,Hum.rec.anlog 20 unit SQ ACD 04/15/17 04/15/17 [Lantus Solostar] Insulin Lispro [Humalog (Insulin 0 unit SQ 04/15/17 Lispro)] Montelukast [Singulair] 10 mg PO HS 04/15/17 04/15/17 Nebivolol [Bystolic] 2.5 mg PO DAILY 04/15/17 04/16/17 [id number] Ethyl Esters 1 GM 2 gm PO DAILY 04/15/17 04/15/17 [Lovaza] Pantoprazole [Protonix] 40 mg PO DAILY 04/15/17 04/15/17 Potassium Chloride [K-Tab ER] 10 meq PO DAILY 04/15/17 04/15/17 Tadalafil [Adcirca] 40 mg PO HS 04/15/17 04/15/17 Review of Systems - Physician Review All systems were reviewed & negative as marked: Yes - Review of Systems Constitutional: Fatigue. absent: Fevers Respiratory: absent: SOB, Cough Cardiovascular: absent: Chest Pain, Palpitations, Syncope Gastrointestinal: Diarrhea, Nausea, Vomiting. absent: Abdominal Pain Neurological: absent: Headache, Dizziness Physical Exam Vital Signs Reviewed: Yes Vital Signs Temp Pulse Resp BP Pulse Ox 05/07/17 13:46 98.6 F 76 18 120/85 100 Temperature: Afebrile Blood Pressure: Normal Pulse: Regular Respiratory Rate: Normal Appearance: Positive for: Well-Appearing, Non-Toxic, Comfortable, Other (obese) Pain Distress: None Mental Status: Positive for: Alert and Oriented X 3 - Systems Exam Head: Present: Atraumatic, Normocephalic Pupils: Present: PERRL Extroacular Muscles: Present: EOMI Conjunctiva: Present: Normal Ears: Present: NORMAL TM, Normal Canal. No: Erythema Mouth: Present: Moist Mucous Membranes Pharnyx: No: ERYTHEMA, EXUDATE, TONSILS ENLARGED Neck: Present: Normal Range of Motion Respiratory/Chest: Present: Clear to Auscultation, Good Air Exchange, Decreased Breath Sounds. No: Respiratory Distress, Accessory Muscle Use Cardiovascular: Present: Regular Rate and Rhythm, Normal S1, S2. No: Murmurs Abdomen: Present: Normal Bowel Sounds. No: Tenderness, Distention, Peritoneal Signs, Rebound, Guarding Back: Present: Normal Inspection Upper Extremity: Present: Normal Inspection. No: Cyanosis, Edema Lower Extremity: Present: Erythema (left leg chronic erythema; non-tender, no warmth), Other (right leg in walking boot). No: Edema Neurological: Present: GCS=15, CN II-XII Intact, Speech Normal, Motor Func Grossly Intact Skin: Present: Warm, Dry, Normal Color. No: Rashes Psychiatric: Present: Alert, Oriented x 3, Normal Insight, Normal Concentration Medical Decision Making ED Course and Treatment: 05/07/17 14:20 Impression: Differential Diagnosis included but are not limited to: Plan: -- EKG -- Chest X-ray -- Labs -- Urinalysis -- Reassess and disposition Progress Notes: 05/07/17 14:28 EKG shows normal sinus rhythm with PACs and poor R-wave progression with inverted T waves laterally similar to EKG of 04/19/2017. 05/07/17 15:57 was here and saw the patient and wants her admitted to a regular bed. - Lab Interpretations Lab Results: 05/07/17 14:55 05/07/17 14:55 Lab Results 05/07/17 14:55: Sodium 140, Potassium 4.6, Chloride 103, Carbon Dioxide 29, Anion Gap 12, BUN 18, Creatinine 1.0, Est GFR ( Amer) > 60, Est GFR (Non- Af Amer) 55, Random Glucose 250 H, Calcium 9.6, Total Bilirubin 0.6, AST 18, ALT 29, Alkaline Phosphatase 114, Lactate Dehydrogenase 445, Total Creatine Kinase 23 L, Troponin I < 0.01 D, Total Protein 6.8, Albumin 3.7, Globulin 3.1 , Albumin/Globulin Ratio 1.2, Amylase 56, Lipase 112 05/07/17 14:55: PT 16.5 H, INR 1.50 H, APTT 32.8 05/07/17 14:55: WBC 7.2, RBC 3.59, Hgb 11.0 L, Hct 32.8 L, MCV 91.4, MCH 30.6, MCHC 33.5, RDW 13.9, Plt Count 338, MPV 10.3, Gran % 50.6, Lymph % (Auto) 36.5 H , [place] % (Auto) 8.5 H, Eos % (Auto) 4.0, Baso % (Auto) 0.4, Gran # 3.63, Lymph # 2.6, [place] # 0.6, Eos # 0.3, Baso # 0.03 - RAD Interpretation Radiology Orders: 05/07/17 14:14 CHEST PORTABLE [RAD] Stat Chest one view shows no infiltrate effusion or cardiomegaly. Flap Lining Binder: ED Physician - Medication Orders Current Medication Orders: Sodium Chloride (Sodium Chloride 0.9%) 1,000 mls @ 100 mls/hr IV .Q10H STA Stop: 05/08/17 00:13 Last Admin: 05/07/17 15:00 Dose: 100 mls/hr eMAR Start Stop Document 05/07/17 15:00 HI (Rec: 05/07/17 15:00 [id number]) Intravenous Solution Start Date 05/07/17 Start Time 15:00 Discontinued Medications Ondansetron HCl (Zofran Inj) 4 mg IVP STAT STA Stop: 05/07/17 14:15 Last Admin: 05/07/17 15:00 Dose: 4 mg IVP Administration Document 05/07/17 15:00 HI (Rec: 05/07/17 15:00 [id number]) Charges for Administration # of IVP Administrations 1 Pantoprazole Sodium (Protonix Inj) 40 mg IVP STAT STA Stop: 05/07/17 14:21 Last Admin: 05/07/17 15:00 Dose: 40 mg IVP Administration Document 05/07/17 15:00 HI (Rec: 05/07/17 15:00 [id number]) Charges for Administration # of IVP Administrations 1 - Scribe Statement The provider has reviewed the documentation as recorded by the Mena Hernandez Provider Scribe Attestation: All medical record entries made by the Scribe were at my direction and personally dictated by me. I have reviewed the chart and agree that the record accurately reflects my personal performance of the history, physical exam, medical decision making, and the department course for this patient. I have also personally directed, reviewed, and agree with the discharge instructions and disposition. Disposition/Present on Arrival - Present on Arrival Any Indicators Present on Arrival: No History of DVT/PE: No History of Uncontrolled Diabetes: Yes Urinary Catheter: No History of Decub. Ulcer: No History Surgical Site Infection Following: None - Disposition Have Diagnosis and Disposition been Completed?: Yes Diagnosis: Hyperglycemia, Anemia, Gastroenteritis, Nausea vomiting and diarrhea Disposition: HOSPITALIZED Disposition Time: 15:58 Patient Plan: Observation Patient Problems: Current Active Problems Problem Status Onset Anemia Acute Gastroenteritis Acute Hyperglycemia Acute Nausea vomiting and diarrhea Acute Condition: GOOD Referrals: Marry Mooney MD [Primary Care Provider] - Follow up with primary Forms: ponUp (Croatian)
[2017-05-07 15:11] LABS: BASO # 0.03 K/mm3 (0.0-2.0); BASO % 0.4 % (0.0-3.0); EOS # 0.3 (0.0-0.7); GRAN # 3.63 (1.4-6.5); GRAN % 50.6 % (50.0-68.0); HEMATOCRIT 32.8 % (36.0-48.0); LYMPH # 2.6 (1.2-3.4); LYMPH % 36.5 % (22.0-35.0); MEAN CELL VOLUME 91.4 fl (80.0-105.0); MEAN CORPUSCULAR HEMOGLOBIN 30.6 pg (25.0-35.0); MEAN CORPUSCULAR HGB CONC 33.5 g/dl (31.0-37.0); MEAN PLATELET VOLUME 10.3 fl (7.0-11.0); MONO # 0.6 (0.1-0.6); MONO % 8.5 % (1.0-6.0); RED CELL DISTRIBUTION WIDTH 13.9 % (11.5-14.5); WHITE BLOOD COUNT 7.2 10^3/ul (4.5-11.0)
[2017-05-07 15:35] LABS: INR 1.5 (0.93-1.08); PARTIAL THROMBOPLASTIN TIME 32.8 Seconds (25.1-36.5)
[2017-05-07 15:40] LABS: ALB/GLOB RATIO 1.2 (1.1-1.8); ALKALINE PHOSPHATASE 114 U/L (38-126); ALT/SGPT 29 U/L (7-56); AMYLASE 56 U/L (35-125); AST/SGOT 18 U/L (14-36); BILIRUBIN,TOTAL 0.6 mg/dL (0.2-1.3); BLOOD UREA NITROGEN 18 mg/dL (7-21); CALCIUM 9.6 mg/dL (8.4-10.5); CARBON DIOXIDE 29 mmol/L (21-33); CHLORIDE 103 mmol/L (98-107); GFR AFRICAN-AMERICAN > 60; GLUCOSE,RANDOM 250 mg/dL (70-110); LIPASE 112 U/L (23-300); POTASSIUM 4.6 mmol/L (3.6-5.0); SODIUM 140 mmol/L (132-148); TOTAL PROTEIN 6.8 g/dL (5.8-8.3)
--- NOTE | 2017-05-07 15:47 | RAD ---
HISTORY: weakness COMPARISON: 04/15/2017 FINDINGS: LUNGS: No active pulmonary disease. PLEURA: No significant pleural effusion identified, no pneumothorax apparent. CARDIOVASCULAR: Normal heart size. Status post CABG. OSSEOUS STRUCTURES: No significant abnormalities. VISUALIZED UPPER ABDOMEN: Normal. OTHER FINDINGS: None. IMPRESSION: No active disease.
[2017-05-07 15:51] LABS: TROPONIN I < 0.01 ng/mL
[2017-05-07] MEDS ORDERED: Pneumococcal 23-Valent Vaccine IM ONE (19:38)
[2017-05-07] MEDS ORDERED: Influenza Vaccine 60 mcg/0.5 mL SYR (4YR UP) IM ONE (19:38)
[2017-05-07] MEDS: TADALAFIL 40 MG PO SCH (21:42)
--- NOTE | 2017-05-07 21:58 | CP.PCM.PN ---
Subjective - Date & Time of Evaluation Date of Evaluation: 05/07/17 Time of Evaluation: 21:51 - Subjective Subjective: S:Nurse Jeanmarie requests an order for Xanax . Patient has an order for xanax 0.25 mg PO BID , but it begins from tomorrow. And patient requests to have it now. Seen at bedside. Has no complaints but anxiety. O: Vital Signs 3 05/07/17 05/07/17 16:15 19:23 Temperature 98.9 F Pulse Rate 70 70 Respiratory 18 18 Rate Blood Pressure 154/72 H 154/72 H O2 Sat by Pulse 98 Oximetry Alert, awake. Not in distress. LUNGS:Normal breathing pattern. A: Anxiety. Elevated blood pressure reading. P:Xanax 0.25 mg PO now. Recheck blood pressure. Objective - Vital Signs/Intake and Output Vital Signs (last 24 hours): Temp Pulse Resp BP Pulse Ox 98.9 F 70 18 154/72 H 98 05/07/17 19:23 05/07/17 19:23 05/07/17 19:23 05/07/17 19:23 05/07/17 16:15 Intake and Output: 05/07/17 05/08/17 18:59 06:59 Intake Total 0 Balance 0 - Medications Medications: Current Medications Alprazolam (Xanax) 0.25 mg PO BID RASHID PRN Reason: Protocol Stop: 05/15/17 10:01 Alprazolam (Xanax) 0.25 mg PO STAT STA PRN Reason: Protocol Stop: 05/07/17 21:51 Apixaban (Eliquis) 5 mg PO Q12 RASHID PRN Reason: Protocol Atorvastatin Calcium (Lipitor) 40 mg PO DAILY RASHID Escitalopram Oxalate (Lexapro) 20 mg PO DAILY [facility] Sodium Chloride (Sodium Chloride 0.9%) 1,000 mls @ 100 mls/hr IV .Q10H STA Stop: 05/08/17 00:13 Last Admin: 05/07/17 15:00 Dose: 100 mls/hr Insulin Human Regular (Humulin R Low) 0 units SC ACHS RASHID PRN Reason: Protocol Fluticasone/Vilanterol [Breo Ellipta 100-25 Mcg Inh] 1 pow IH DAILY RASHID Nebivolol [Bystolic] (2.5 Mg) 2.5 mg PO DAILY RASHID Tadalafil [Adcirca] (40 Mg) 40 mg PO HS [facility] Last Admin: 05/07/17 21:42 Dose: Not Given Pantoprazole Sodium (Protonix Ec Tab) 40 mg PO DAILY [facility] - Labs Labs: PT 16.5 SECONDS (9.4-12.5) H 05/07/17 14:55 INR 1.50 (0.93-1.08) H 05/07/17 14:55 APTT 32.8 Seconds (25.1-36.5) 05/07/17 14:55
[2017-05-07] MEDS: Insulin Reg-LOW-Coverage SC SCH (22:48)
[2017-05-08 01:30] LABS: URINE BILIRUBIN NEGATIVE (NEGATIVE); URINE BLOOD NEGATIVE (NEGATIVE); URINE GLUCOSE (UA) NEGATIVE (NEGATIVE); URINE KETONE NEGATIVE (NEGATIVE); URINE LEUKOCYTE ESTERASE NEGATIVE Leu/uL (NEGATIVE); URINE PROTEIN NEGATIVE mg/dL (<30 mg/dL); URINE UROBILINOGEN 0.2 E.U./dL (<1 E.U./dL)
[2017-05-08 01:37] LABS: URINE APPEARANCE CLEAR (CLEAR); URINE COLOR YELLOW (YELLOW)
--- NOTE | 2017-05-08 05:00 | CP.PCM.PN ---
Subjective - Date & Time of Evaluation Date of Evaluation: 05/08/17 Time of Evaluation: 04:59 - Subjective Subjective: Patient was seen at bedside. She had light headedness. Complains of little heaviness across lower anterior chest, no radiation. Had nausea earlier, not now.No sob. Has little palpitation. No other complaints. 143/74. pulse 143/min. Pulse ox 99% on 2L/min by nasal canula. Cardizem 20 mg IV bolus was given by me slowly, heart rate came down to 110/ min. FSBS-52 mg %. Medical reocord was reviewed. This 71 year old woman was admitted with nausea, vomiting ,diarrhoea, gastroenteritis, anemia, hyperglycemia. Has PMH of HTN,CHF, CAD, CABG, DM II, anemia, atrial fibrillation with RVR, Ablation, COPD, anxiety , depression former smoker. Objective - Vital Signs/Intake and Output Vital Signs (last 24 hours): Temp Pulse Resp BP Pulse Ox 98.9 F 70 18 154/72 H 98 05/07/17 19:23 05/07/17 19:23 05/07/17 19:23 05/07/17 19:23 05/07/17 16:15 Intake and Output: 05/07/17 05/08/17 18:59 06:59 Intake Total 0 Output Total 400 Balance -400 - Medications Medications: Current Medications Alprazolam (Xanax) 0.25 mg PO BID [facility] PRN Reason: Protocol Stop: 05/15/17 10:01 Apixaban (Eliquis) 5 mg PO Q12 RASHID PRN Reason: Protocol Atorvastatin Calcium (Lipitor) 40 mg PO DAILY [facility] Escitalopram Oxalate (Lexapro) 20 mg PO DAILY [facility] Insulin Human Regular (Humulin R Low) 0 units SC ACHS [facility] PRN Reason: Protocol Last Admin: 05/07/17 22:48 Dose: Not Given Fluticasone/Vilanterol [Breo Ellipta 100-25 Mcg Inh] 1 pow IH DAILY [facility] Nebivolol [Bystolic] (2.5 Mg) 2.5 mg PO DAILY [facility] Tadalafil [Adcirca] (40 Mg) 40 mg PO HS [facility] Last Admin: 05/07/17 21:42 Dose: Not Given Pantoprazole Sodium (Protonix Ec Tab) 40 mg PO DAILY [facility] - Labs Labs: PT 16.5 SECONDS (9.4-12.5) H 05/07/17 14:55 INR 1.50 (0.93-1.08) H 05/07/17 14:55 APTT 32.8 Seconds (25.1-36.5) 05/07/17 14:55 Most Recent Lab Values WBC 7.2 10^3/ul (4.5-11.0) 05/07/17 14:55 RBC 3.59 10^6/uL (3.5-6.1) 05/07/17 14:55 Hgb 11.0 g/dL (12.0-16.0) L 05/07/17 14:55 Hct 32.8 % (36.0-48.0) L 05/07/17 14:55 MCV 91.4 fl (80.0-105.0) 05/07/17 14:55 MCH 30.6 pg (25.0-35.0) 05/07/17 14:55 MCHC 33.5 g/dl (31.0-37.0) 05/07/17 14:55 RDW 13.9 % (11.5-14.5) 05/07/17 14:55 Plt Count 338 10^3/uL (120.0-450.0) 05/07/17 14:55 MPV 10.3 fl (7.0-11.0) 05/07/17 14:55 Gran % 50.6 % (50.0-68.0) 05/07/17 14:55 Lymph % (Auto) 36.5 % (22.0-35.0) H 05/07/17 14:55 [place] % (Auto) 8.5 % (1.0-6.0) H 05/07/17 14:55 Eos % (Auto) 4.0 % (1.5-5.0) 05/07/17 14:55 Baso % (Auto) 0.4 % (0.0-3.0) 05/07/17 14:55 Gran # 3.63 (1.4-6.5) 05/07/17 14:55 Lymph # 2.6 (1.2-3.4) 05/07/17 14:55 [place] # 0.6 (0.1-0.6) 05/07/17 14:55 Eos # 0.3 (0.0-0.7) 05/07/17 14:55 Baso # 0.03 K/mm3 (0.0-2.0) 05/07/17 14:55 PT 16.5 SECONDS (9.4-12.5) H 05/07/17 14:55 INR 1.50 (0.93-1.08) H 05/07/17 14:55 APTT 32.8 Seconds (25.1-36.5) 05/07/17 14:55 Sodium 140 mmol/L (132-148) 05/07/17 14:55 Potassium 4.6 mmol/L (3.6-5.0) 05/07/17 14:55 Chloride 103 mmol/L (98-107) 05/07/17 14:55 Carbon Dioxide 29 mmol/L (21-33) 05/07/17 14:55 Anion Gap 12 (10-20) 05/07/17 14:55 BUN 18 mg/dL (7-21) 05/07/17 14:55 Creatinine 1.0 mg/dl (0.7-1.2) 05/07/17 14:55 Est GFR ( Amer) > 60 05/07/17 14:55 Est GFR (Non-Af Amer) 55 05/07/17 14:55 POC Glucose (mg/dL) 104 mg/dL (65-110) 05/07/17 21:42 Random Glucose 250 mg/dL (70-110) H 05/07/17 14:55 Calcium 9.6 mg/dL (8.4-10.5) 05/07/17 14:55 Total Bilirubin 0.6 mg/dL (0.2-1.3) 05/07/17 14:55 AST 18 U/L (14-36) 05/07/17 14:55 ALT 29 U/L (7-56) 05/07/17 14:55 Alkaline Phosphatase 114 U/L (38-126) 05/07/17 14:55 Lactate Dehydrogenase 445 U/L (333-699) 05/07/17 14:55 Total Creatine Kinase 23 U/L (35-230) L 05/07/17 14:55 Troponin I < 0.01 ng/mL D 05/07/17 14:55 Total Protein 6.8 g/dL (5.8-8.3) 05/07/17 14:55 Albumin 3.7 g/dL (3.0-4.8) 05/07/17 14:55 Globulin 3.1 gm/dL 05/07/17 14:55 Albumin/Globulin Ratio 1.2 (1.1-1.8) 05/07/17 14:55 Amylase 56 U/L (35-125) 05/07/17 14:55 Lipase 112 U/L (23-300) 05/07/17 14:55 Urine Color Yellow (YELLOW) 05/08/17 00:50 Urine Appearance Clear (CLEAR) 05/08/17 00:50 Urine pH 6.0 (4.7-8.0) 05/08/17 00:50 Ur Specific [place] 1.010 (1.005-1.035) 05/08/17 00:50 Urine Protein Negative mg/dL (<30 mg/dL) 05/08/17 00:50 Urine Glucose (UA) Negative mg/dL (NEGATIVE) 05/08/17 00:50 Urine Ketones Negative mg/dL (NEGATIVE) 05/08/17 00:50 Urine Blood Negative (NEGATIVE) 05/08/17 00:50 Urine Nitrate Negative (NEGATIVE) 05/08/17 00:50 Urine Bilirubin Negative (NEGATIVE) 05/08/17 00:50 Urine Urobilinogen 0.2 E.U./dL (<1 E.U./dL) 05/08/17 00:50 Ur Leukocyte Esterase Negative X[place]/uL (NEGATIVE) 05/08/17 00:50 - Constitutional Appears: Well, No Acute Distress - Head Exam Head Exam: ATRAUMATIC, NORMAL INSPECTION, NORMOCEPHALIC Additional comments: Obese. - Eye Exam Eye Exam: Normal appearance - ENT Exam ENT Exam: Normal External Ear Exam - Neck Exam Neck Exam: Normal Inspection - Respiratory Exam Respiratory Exam: Clear to Ausculation Bilateral, NORMAL BREATHING PATTERN - Cardiovascular Exam Cardiovascular Exam: Tachycardia, Irregular Rhythm, +S1 (Normal.), +S2 (Normal.) . absent: JVD - GI/Abdominal Exam GI & Abdominal Exam: absent: Distended - Rectal Exam Rectal Exam: Deferred - Exam Additional comments: deferred. - Extremities Exam Extremities Exam: Normal Inspection - Back Exam Back Exam: NORMAL INSPECTION - Neurological Exam Neurological Exam: Alert, Oriented x3 - Psychiatric Exam Psychiatric exam: Normal Affect, Normal Mood - Skin Skin Exam: Normal Color Assessment and Plan - Assessment and Plan (Free Text) Assessment: Heaviness in chest. Atrial fibrillation with RVR. Palpitation. Hypoglycemia. Obesity. HTN. DM II. CAD. CHF. S/P CABG. Plan: Transfer to telemetry unit. Cardizem 20 mg IV given. Cardizem drip at 5 ml / hour. Dextrose 50% , 50 ml IV stat. CBC,CMP,TSH,Mag, Phos, troponin stat. Cardiology consultation with . was spoken to. Continue present management .
[2017-05-08] MEDS ORDERED: Dextrose 50% SYRINGE Inj (50 ml) IVP STA (05:18)
[2017-05-08] MEDS ORDERED: diltiaZEM IVPB 100mg in NS 100 ML IV PRN ×2 (05:18→09:53)
[2017-05-08] MEDS ORDERED: Enoxaparin 100 mg Syringe SC SCH (06:00)
[2017-05-08 06:10] LABS: BASO # 0.03 K/mm3 (0.0-2.0); BASO % 0.5 % (0.0-3.0); EOS # 0.4 (0.0-0.7); EOS % 5.7 % (1.5-5.0); GRAN # 3.56 (1.4-6.5); GRAN % 56.5 % (50.0-68.0); HEMATOCRIT 33.5 % (36.0-48.0); LYMPH # 1.8 (1.2-3.4); LYMPH % 28.9 % (22.0-35.0); MEAN CELL VOLUME 91.8 fl (80.0-105.0); MEAN CORPUSCULAR HEMOGLOBIN 30.4 pg (25.0-35.0); MEAN CORPUSCULAR HGB CONC 33.1 g/dl (31.0-37.0); MEAN PLATELET VOLUME 10.2 fl (7.0-11.0); MONO # 0.5 (0.1-0.6); MONO % 8.4 % (1.0-6.0); RED CELL DISTRIBUTION WIDTH 13.9 % (11.5-14.5); WHITE BLOOD COUNT 6.3 10^3/ul (4.5-11.0)
[2017-05-08 06:41] LABS: ALB/GLOB RATIO 1.1 (1.1-1.8); ALKALINE PHOSPHATASE 100 U/L (38-126); ALT/SGPT 35 U/L (7-56); AST/SGOT 19 U/L (14-36); BILIRUBIN,TOTAL 0.6 mg/dL (0.2-1.3); BLOOD UREA NITROGEN 14 mg/dL (7-21); CALCIUM 8.9 mg/dL (8.4-10.5); CARBON DIOXIDE 27 mmol/L (21-33); CHLORIDE 108 mmol/L (98-107); GFR AFRICAN-AMERICAN > 60; GLUCOSE,RANDOM 196 mg/dL (70-110); MAGNESIUM 1.3 mg/dL (1.7-2.2); POTASSIUM 4.3 mmol/L (3.6-5.0); SODIUM 143 mmol/L (132-148); TOTAL PROTEIN 6.2 g/dL (5.8-8.3)
[2017-05-08 06:50] LABS: TROPONIN I < 0.01 ng/mL
[2017-05-08] MEDS: Insulin Reg-LOW-Coverage SC SCH ×4 (07:55→22:07)
[2017-05-08] MEDS ORDERED: Fluticasone/Vilanterol [Breo Ellipta 100-25 Mcg Inh] IH SCH (10:00)
[2017-05-08] MEDS ORDERED: NEBIVOLOL 2.5 MG PO SCH (10:00)
[2017-05-08] MEDS: Pantoprazole 40 mg EC Tab PO SCH (10:50)
[2017-05-08] MEDS ORDERED: FLUTICASONE IH SCH (12:38)
[2017-05-08] MEDS ORDERED: VILANTEROL IH SCH (12:38)
--- NOTE | 2017-05-08 14:53 | CARD ---
APPROVED REPORT EKG Measurement Heart [id number] <Conclusion> Atrial fibrillation with rapid ventricular response Left axis deviation Anteroseptal infarct, age undetermined Marked ST abnormality, possible inferolateral subendocardial injury Abnormal ECG
--- NOTE | 2017-05-08 14:57 | CARD ---
APPROVED REPORT EKG Measurement Heart [id number] <Conclusion> Sinus rhythm with premature atrial complexes Left axis deviation Pulmonary disease pattern Septal infarct, age undetermined ST & T wave abnormality, consider inferolateral ischemia Abnormal ECG
[2017-05-08] MEDS: TADALAFIL 40 MG PO SCH (22:08)
[2017-05-08] MEDS: Magnesium Oxide 400 mg Tab UD PO SCH (23:15)
[2017-05-09 00:36] VITALS: O2SAT 95
--- NOTE | 2017-05-09 00:37 | CON ---
PULMONARY CONSULTATION DATE: 05/08/2017 REFERRING PHYSICIAN: Marry Mooney MD REASON FOR CONSULT: Pulmonary hypertension, atrial fibrillation, and may have sleep apnea syndrome. HISTORY OF PRESENT ILLNESS: The patient is a 71-year-old obese female known to me from previous admission, has a history of diabetes, pulmonary hypertension, history of pneumonia, atrial fibrillation with rapid ventricular response, hyperglycemia, from the last three days has been having nausea, vomiting, and diarrhea. Failed treatment as an outpatient, comes into the Emergency Room with rapid ventricular response with AFib, admitted to telemetry. Presently, she is on IV fluids, feels better, supposed to have a sleep study as an outpatient, could not make it. No hemoptysis. No hematemesis. No hematuria. No abdominal pain. There is no vomiting right now, but still has a bowel movement. No leg pain or leg swelling. PAST MEDICAL HISTORY: As per history of present illness. FAMILY HISTORY: No significant cardiopulmonary disease reported. SOCIAL HISTORY: Stopped smoking many years ago. Denies any alcohol use. ALLERGIES: NONE KNOWN. MEDICATIONS: She is on Cardizem 30 mg q.i.d., amiodarone 400 mg three times a day, being loaded and then will start 200 mg daily, Eliquis 5 mg twice a day, she is on Breo Ellipta one puff daily, insulin coverage, Lexapro 20 m daily, Lipitor 40 mg daily, metoprolol tartrate 25 mg twice a day, Protonix 40 mg daily, Adcirca 40 mg daily, and Xanax 0.25 mg twice a day. REVIEW OF SYSTEMS: No headaches. No rhinitis. There is no nausea and vomiting. No chest pain. No palpitation. No abdominal pain, still has a frequent bowel movement. No leg pain or leg swelling. PHYSICAL EXAMINATION GENERAL: Lying in the bed, in no acute distress. VITAL SIGNS: Temperature is 98, heart rate 88, respiratory rate is 20, blood pressure 144/84, and pulse ox 98% on nasal cannula. HEENT: Moist mucous membrane. Small oral cavity. Crowded airway. NECK: Supple. No JVD. LUNGS: Has a fair airflow with few rhonchi. HEART: S1 and S2. ABDOMEN: Soft and nontender. No organomegaly. EXTREMITIES: Right ankle has a Venkata wraps with boots. NEUROLOGIC: Awake, alert, and follow simple commands. LABORATORY DATA: Shows hemoglobin 11.1, hematocrit 33.5, WBC 6.3, and platelet count is 313. INR 1.50. PTT is 32. Sodium 142, potassium 4.3, chloride 108, bicarbonate 27, BUN 14, creatinine 1.0, glucose 196, calcium is 8.9, phosphorus 4.0, magnesium 1.3, AST 19, ALT 35, alkaline phosphatase 100, and albumin is 3.3. Stool for occult blood is negative. Microbiology, no report is available. Chest x-ray done on admission shows no infiltrate or effusion. IMPRESSION AND PLAN: Atrial fibrillation with rapid ventricular response, history of cardioversion, obstructive sleep apnea syndrome, chronic obstructive lung disease, diabetes, hypertension, hyperlipidemia, coronary artery disease, history of coronary artery bypass surgery, cardiomyopathy with decreased left ventricular function, and pulmonary hypertension. The patient is supposed to get sleep study as an outpatient, did not get to it, had a gastroenteritis and with rapid ventricular response, admitted on telemetry. Presently noted that amiodarone loading dose have been started continue IV fluids. Continue pulmonary vasodilator. Keep head at 45 degrees. Sleep apnea precautions. Follow up lab in the morning. Thank you and we will follow with you. Raphael Villalba MD
--- NOTE | 2017-05-09 00:39 | CON ---
DATE: 05/08/2017 HISTORY OF PRESENT ILLNESS: This 71-year-old patient with a past medical history of diabetes mellitus, pulmonary hypertension, atrial fibrillation, was transferred from the [facility] for complaints of nausea, vomiting, and diarrhea for the past 3 days. No history of any bleeding per rectum. No vomiting. The patient was in the Med Surgery floor where she developed AFib with rapid ventricular response, subsequently transferred to the ICU. No further episodes of vomiting in the ICU. The patient had some loose bowel movements. OTHER PAST MEDICAL HISTORY: Significant for COPD, congestive heart failure, significant for coronary artery disease, open heart surgery, coronary artery bypass graft. The patient recently had a right foot fracture and has a splint. FAMILY HISTORY: Noncontributory. SOCIAL HISTORY: Ex-smoker. No alcohol. ALLERGIES: NO KNOWN DRUG ALLERGIES. REVIEW OF SYSTEMS: Positive as above. Other systems reviewed and negative. PHYSICAL EXAMINATION: GENERAL: The patient is lying on the bed, not in acute distress, tolerating the diet now. VITAL SIGNS: Pulse 88, blood pressure 144/84, respirations 19, and O2 saturation 98%. HEENT: Atraumatic. Anicteric. NECK: Supple. HEART: S1 and S2 heard. LUNGS: Bilateral air entry present. ABDOMEN: Soft. There is no tenderness. EXTREMITIES: No edema, no cyanosis. Right foot has splint present. NEUROLOGIC: Alert and oriented. Moves all the extremities. LABORATORY DATA: Hemoglobin 11.1, hematocrit 33.5, WBC 6.3 and platelets 313. Chemistry is essentially unremarkable. IMPRESSION: This 71-year-old patient admitted with acute onset of diarrhea, vomiting and abdominal pain. The patient also has elevated blood glucose. The patient was found to have atrial fibrillation with rapid response, now in ICU. Clinically, the patient is tolerating now diet. Clinically, is more suggestive of possible gastroenteritis. The patient has had a colonoscopy and endoscopy by Dr. Glasgow in [facility] close to 4 to 5 years ago. The patient has been taking pantoprazole on a regular basis. Prior to the admission, the patient has been also on Eliquis. RECOMMENDATIONS: We would recommend elective GI evaluation. Based on the clinical course, the patient's other comorbidities include pulmonary hypertension, the patient has been on tadalafil; coronary artery disease; diabetes mellitus; AFib; anxiety. Thank you very much for allowing us to participate in the care of the patient. We will continue to closely follow up her care and suggest further management based on the clinical course. We will also request the stool for C. diff. Delmy Schaeffer MD
--- NOTE | 2017-05-09 02:22 | PN ---
DATE: SUBJECTIVE: The patient is a 71-year-old female. The patient was seen and examined on the bedside, looking comfortable. She is still complaining about a little bit of headache, dizziness, pressure in the chest once in a while and sometimes having feeling palpitation. No fever and no chills. The patient was seen by Dr. Arce and Cardizem 20 mg IV bolus was given by Dr. Arce. Heart rate come down to 110. No fever and no chills. PHYSICAL EXAMINATION: VITAL SIGNS: Temperature of 98.6, pulse of 88, blood pressure of 141/71 and respiratory rate of 19. HEENT: Head: Normocephalic and atraumatic. Eyes: PERRLA. Extraocular muscles are intact. Conjunctivae are clear. Nose is patent. Mucous membranes are moist. NECK: Supple. No carotid bruits, JVD or thyromegaly. CHEST: Bilaterally symmetrical. HEART: S1 and S2 positive. LUNGS: Clear to auscultation. ABDOMEN: Soft. Bowel sounds are present. No organomegaly. EXTREMITIES: No edema. No cyanosis. NEUROLOGIC: The patient is awake and alert. Moving all 4 extremities. No focal deficit. MEDICATIONS: Cardizem, Cardura, Eliquis, insulin, Lexapro, Lipitor, Lopressor, Protonix, Adcirca and Xanax. LABORATORY DATA: White blood cell is 6.3, hemoglobin is 11.1, hematocrit is 33.5 and platelets are 313. Sodium is 143, potassium is 4.3, BUN is 14, and creatinine is 1.0. Glucose of 313, 278 and 175, magnesium 1.3 ASSESSMENT AND PLAN: Ms. Brigitte Nance is a 71-year-old lady with anemia, hyperchloremia, hyperglycemia, and hypomagnesemia. 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 Readmitted the patient, due to consult with Dr. Schaeffer for gastroenteritis, Dr. Villalba for pulmonary hypertension, Dr. Tapia for atrial fibrillation with ventricular response, still waiting for these physicians response. Meanwhile continue present treatment. Gastrointestinal and deep venous thrombosis prophylaxis. Repeat laboratories. Marry Mooney MD
[2017-05-09 06:16] LABS: BASO # 0.04 K/mm3 (0.0-2.0); BASO % 0.6 % (0.0-3.0); EOS # 0.5 (0.0-0.7); EOS % 8.5 % (1.5-5.0); GRAN # 2.83 (1.4-6.5); GRAN % 45.7 % (50.0-68.0); LYMPH # 2.3 (1.2-3.4); LYMPH % 36.5 % (22.0-35.0); MEAN CELL VOLUME 90.9 fl (80.0-105.0); MEAN CORPUSCULAR HEMOGLOBIN 30.2 pg (25.0-35.0); MEAN CORPUSCULAR HGB CONC 33.2 g/dl (31.0-37.0); MEAN PLATELET VOLUME 10.4 fl (7.0-11.0); MONO # 0.5 (0.1-0.6); MONO % 8.7 % (1.0-6.0); RED CELL DISTRIBUTION WIDTH 13.8 % (11.5-14.5); WHITE BLOOD COUNT 6.2 10^3/ul (4.5-11.0)
[2017-05-09 07:01] LABS: ALB/GLOB RATIO 1.1 (1.1-1.8); ALKALINE PHOSPHATASE 97 U/L (38-126); ALT/SGPT 41 U/L (7-56); AST/SGOT 17 U/L (14-36); BILIRUBIN,TOTAL 0.6 mg/dL (0.2-1.3); BLOOD UREA NITROGEN 10 mg/dL (7-21); CALCIUM 8.9 mg/dL (8.4-10.5); CARBON DIOXIDE 29 mmol/L (21-33); CHLORIDE 106 mmol/L (98-107); CHOLESTEROL 112 mg/dL (130-200); GFR AFRICAN-AMERICAN > 60; GLUCOSE,RANDOM 251 mg/dL (70-110); MAGNESIUM 1.3 mg/dL (1.7-2.2); PHOSPHOROUS 2.6 mg/dL (2.5-4.5); POTASSIUM 3.9 mmol/L (3.6-5.0); SODIUM 140 mmol/L (132-148)
[2017-05-09] MEDS: Insulin Reg-LOW-Coverage SC SCH ×4 (08:38→22:30)
--- NOTE | 2017-05-09 08:52 | HP ---
CHIEF COMPLAINT: Diarrhea, nausea, and vomiting. HISTORY OF PRESENT ILLNESS: Ms. Brigitte Nance is a 71-year-old female with past medical history of diabetes mellitus, pulmonary hypertension, pneumonia, atrial fibrillation with rapid ventricular response, hyperglycemia, was getting rehab , was informed me 2 days ago about nausea and vomiting, we gave Zofran, but nausea and vomiting was not under control, then they brought the patient to Emergency Room via EMS, accompanied by the patient's daughter from [facility] complaining of nausea, vomiting and diarrhea. The patient admits to have anxiety. She denies any cough, fever, chills, shortness of breath, headache, or dizziness. PAST MEDICAL HISTORY: As above. Has CABG, open heart surgery, coronary artery disease, SP ablation, congestive heart failure, hypertension, COPD, pneumonia, and diabetes mellitus. FAMILY HISTORY: Father and mother noncontributory. HABITS: Former smoker. No smoking. No drugs. No ethanol. ALLERGIES: THE PATIENT IS NOT ALLERGIC TO ANY MEDICATIONS. HOME MEDICATIONS: Alprazolam, Lipitor, Lexapro, furosemide, insulin, Eliquis, calcium with vitamin D, Breo, folic acid, Singulair, Bystolic, Protonix, and Adcirca. REVIEW OF SYSTEMS: The patient is seen and examined on the bedside in the Emergency Room, daughter was present on the bedside also. The patient is still feeling fatigue. No fever and no chills. No shortness of breath. No chest pain. No palpitations. Still having diarrhea, nauseous and vomiting. No headache and no dizziness. PHYSICAL EXAMINATION VITAL SIGNS: Temperature of 98.6, pulse of 76, respiratory rate of 18, blood pressure of 120/85, and pulse oximetry of 100%. HEENT: Head is normocephalic and atraumatic. Eyes; PERRLA. Extraocular muscles are intact. Conjunctivae are clear. Nose is patent. Mucous membranes are moist. NECK: Supple. No carotid bruit, JVD or thyromegaly. CHEST: Bilaterally symmetrical. HEART: S1 and S2 positive. LUNGS: Clear to auscultation. ABDOMEN: Soft. Bowel sounds present. No organomegaly. EXTREMITIES: No edema. No cyanosis. NEUROLOGICAL: The patient is awake and alert. Moving all 4 extremities. No focal deficits. LABORATORY DATA: White blood cell is 7.2, hemoglobin is 11.0, hematocrit is 32.8, and platelets are 338. Sodium is 140, potassium is 4.6, BUN is 8, and creatinine is 1.0. Glucose is 250. ASSESSMENT AND PLAN: Ms. Brigitte Nance is a 71-year-old lady with anemia, hyperglycemia, dehydration, uncontrolled diabetes mellitus, has gastroenteritis, nausea, vomiting and diarrhea, rule out gastroparesis, history of chronic obstructive pulmonary disease, coronary artery disease, obesity, coronary artery bypass graft, open heart surgery, slow pathway ablation, congestive heart failure, hypertension, history of swelling of the leg, cellulitis of the leg, gastrointestinal and deep venous thrombosis. Repeat laboratories. History of anxiety and depression. Admitted the patient and consult was called with Dr. Schaeffer. We will follow up. Marry Mooney MD MTDD
--- NOTE | 2017-05-09 08:53 | CON ---
DATE: 05/08/2017 CONSULT SERVICE: Cardiology. REASON FOR CONSULTATION: Followup AFib with rapid ventricular rate, transferred from telemetry to ICU after rapid response. BRIEF CLINICAL HISTORY: This is a 71-year-old female with past medical history of diabetes, pulmonary hypertension, pneumonia, atrial fibrillation, admitted from [facility] because of nausea, vomiting, and diarrhea. Last night, the patient had a rapid response with heart rate 140 with rapid ventricular rate and after rapid ventricular rate, transferred to ICU. The patient is currently on Cardizem drip 5 mg, heart rate is in the 90, and blood pressure 146/70. Denies any chest pain, shortness of breath, or any palpitations. PAST MEDICAL HISTORY: Significant for diabetes, hypertension, hyperlipidemia, obesity, coronary artery disease, status post coronary artery bypass surgery, recent catheterization by Dr. Cronin at [facility] beginning of the year and found to be patent graft, history of radiofrequency ablation by Dr. Horn at [facility]. On last admission, the patient was found AFib with rapid ventricular rate, T-cardioverted. As per instructions of Dr. Horn, admitted again with diarrhea and admitting EKG with a normal sinus and went into AFib with rapid ventricular rate. PREVIOUS CARDIAC WORKUP: As follows, the patient had a cardiac catheterization, first the patient had open heart surgery in 1999, and most recently the patient's cardiac catheterization by Dr. Cronin at [facility] in the beginning of the year. Last admission discussed with Dr. Horn and he thinks that does not think for further cardiac catheterization, leak of troponin secondary to hemodynamic instability on last admission. He suggested to have a T-cardioversion with the patient underwent JORGE LUIS and cardioversion on 04/19/2017, at that time the echo revealed trace aortic regurgitation with ejection fraction of 35% to 40%, biatrial enlargement, [id number] tricuspid regurgitation, RV systolic pressure of 54, 20 joules cardioversion was given, and the patient converted to normal sinus. The patient was loaded with amiodarone and cardioversion done on last admission dated 04/19/2017. REVIEW OF SYSTEMS: As per HPI. CURRENT MEDICATIONS: The patient is taking , Singulair, folic acid, Lasix, apixaban, and Xanax. PHYSICAL EXAMINATION: VITAL SIGNS: As follows; temperature 97, heart rate 92, and blood pressure . HEENT: PERRLA. Extraocular muscles intact. NECK: Supple. No carotid bruit or thyromegaly. CHEST: Clear to auscultation. HEART: S1 and S2 regular. ABDOMEN: Soft. EXTREMITIES: Clubbing and cyanosis negative. LABORATORY DATA: Blood workup as follows; WBC 6.3, hemoglobin , hematocrit 33.5, and platelet 313. Chemistry shows sodium 140, potassium , chloride 108, carbon dioxide 23, anion gap 12, BUN 14, creatinine 1.0, and troponin 0.01 negative. IMPRESSION: Atrial fibrillation with rapid ventricular rate, paroxysmal atrial fibrillation, status post radiofrequency ablation, failed T-cardioversion, last time the patient had T-cardioversion done, loaded with amiodarone, and the patient came in with normal sinus rhythm and converted to atrial fibrillation with rapid ventricular rate. Last echo shows ejection fraction 35% to 40%, the patient is in atrial fibrillation, status post T-cardioversion dated 04/19/2017. At that time, transesophageal echocardiography revealed trace aortic regurgitation, biatrial enlargement, [id number] tricuspid regurgitation, moderate mitral regurgitation, coronary artery disease, coronary artery bypass graft in 1999, status post cardiac catheterization by Dr. Cronin's group in early beginning of this year, and patent graft. RECOMMENDATIONS: Continue Cardizem, increase Cardizem to 10 mg an hour, loaded with p.o. amio, and once it is stable, we can discontinue Cardizem. Resume back apixaban and the patient is already on Eliquis as well as enoxaparin, we will discontinue enoxaparin. We will follow. The patient eventually needs again ablation, last time I spoke to Dr. Horn at [facility] and we will discuss with the family. We will put on Lopressor 25 mg b.i.d., increase Cardizem p.o. 30 mg q.6 hours and discontinue Cardizem drip one hour after the first p.o. dose increase. Amiodarone load 400 mg p.o. t.i.d. for three days followed by 200 mg daily. Further recommendation on hospital course. We will discontinue Lovenox and continue Eliquis. As the patient is getting both Eliquis and Lovenox, so we will discontinue Lovenox. Thank you Dr. Mooney for providing us the opportunity in taking care of the patient. Brigitte Nance. Raphael Tapia MD
[2017-05-09] MEDS: Pantoprazole 40 mg EC Tab PO SCH (10:30)
[2017-05-09] MEDS: Magnesium Oxide 400 mg Tab UD PO SCH ×2 (10:31→17:21)
[2017-05-09] MEDS: NEBIVOLOL 2.5 MG PO SCH (10:32)
[2017-05-09] MEDS: VILANTEROL IH SCH (10:34)
[2017-05-09] MEDS: FLUTICASONE IH SCH (10:34)
--- NOTE | 2017-05-09 20:04 | PN ---
PULMONARY PROGRESS NOTE DATE: 05/09/2017 REFERRING PHYSICIAN: Marry Mooney MD SUBJECTIVE: She is lying in the bed, head at 45 degrees, night was unremarkable. Diarrhea is better. No nausea. No abdominal pain. No shortness of breath. No leg pain or leg swelling. PHYSICAL EXAMINATION GENERAL: No acute distress. VITAL SIGNS: Temperature is 98, heart rate 89, respiratory rate is 20, blood pressure 134/73 and pulse oximetry 95% on room air. HEENT: Moist mucous membrane. Crowded airway. Mallampati score is 4. NECK: Supple. No JVD. LUNGS: Fair airflow with few rhonchi. HEART: S1 and S2. ABDOMEN: Soft and nontender. No organomegaly. EXTREMITIES: No edema. Right ankle has a Venkata wraps. NEUROLOGIC: Awake, alert and follow simple command. MEDICATIONS: She is Ambien 5 mg at bedtime p.r.n., Cardizem 30 mg q.i.d., Cardizem CD 120 mg once a day, amiodarone loading dose has been given, Eliquis 5 mg twice a day, Breo 100/25 1 puff daily, insulin coverage, Lexapro 20 mg daily, Lipitor 40 mg daily, metoprolol tartarate 25 mg twice a day, magnesium oxide 400 mg daily, Protonix 40 mg daily, Adcirca 40 mg daily and Xanax 0.25 mg twice a day. LABORATORY DATA: Shows hemoglobin 10.3, hematocrit 31.0, WBC 6.2 and platelet is 318. Sodium 140, potassium 3.9, chloride 106, bicarbonate 29, BUN 10, creatinine 0.9 and glucose 251. Hemoglobin A1c 10.7. Calcium 8.9, phosphorus 2.6, magnesium 1.3, AST 17, ALT 41, alk phos is 97, albumin 3.1, triglyceride 170 and TSH 3.75. IMPRESSION AND PLAN: Atrial fibrillation with rapid ventricular response, history of cardioversion, obstructive sleep apnea syndrome, chronic obstructive lung disease, diabetes, hypertension, hyperlipidemia, coronary artery disease, history of coronary artery bypass surgery, cardiomyopathy with decreased left ventricular function and pulmonary hypertension. May have sleep apnea syndrome. Admitted with gastroenteritis, which slowly improves also had a rapid atrial fibrillation started on amiodarone. Sleep apnea precaution. Keep head at 45 degrees, avoid sedative, anticoagulation. Out of bed to chair. Physical therapy. Thank you and we will follow with you. Raphael Villalba MD
--- NOTE | 2017-05-09 21:19 | PN ---
DATE: 05/09/2017 The patient is a 71-year-old female. REASON FOR CONSULTATION: Followup AFib with rapid ventricular rate. Transferred from telemetry to ICU after rapid response, AFib with rapid ventricular rate. SUBJECTIVE: The patient denies any chest pain, shortness of breath, any palpitation. Feels better. Admitted with diarrhea. PHYSICAL EXAMINATION: VITAL SIGNS: As follows; temperature afebrile, heart rate 98, blood pressure 134/73. HEENT: PERRLA. Extraocular muscles intact. NECK: Supple. No carotid bruits or thyromegaly. CHEST: Clear to auscultation. HEART: S1 and S2 regular. ABDOMEN: Soft. EXTREMITIES: Clubbing and cyanosis negative. LABORATORY DATA: Blood workup as follows: WBC 6.8, hemoglobin 10.7, hematocrit 31.0, and platelet count 318. Chemistry shows sodium 140, potassium 3.9, chloride 106, carbon dioxide 29, anion gap of 10, BUN 10, and creatinine 0.9. IMPRESSION: Paroxysmal atrial fibrillation, rapid ventricular rate, rate is well controlled. Coronary artery disease, coronary artery bypass graft status post recent catheterization at [facility] patent bypass graft. Admitted with diarrhea, diabetes, hypertension, hyperlipidemia status post transesophageal echocardiography cardioversion on 04/18/2017, reversed back to atrial fibrillation. RECOMMENDATIONS: The patient was discharged , but apparently she lost the never took amiodarone, so amiodarone was restarted here yesterday. The patient said she never took amiodarone at home. Last time was JORGE LUIS cardioverted and amiodarone was started, but not sure what happened. So restarted amiodarone yesterday. Continue amiodarone 400 mg p.o. t.i.d. until tomorrow, then from Tuesday once a day. Continue Cardizem 30 mg q.i.d. and continue metoprolol 25 mg b.i.d. We will follow with you. Once the symptom of diarrhea controlled, the patient can be discharged home. No further cardiac workup is planned at this time. If the rate remain controlled, we will discontinue telemetry tomorrow. We will continue amiodarone and continue Eliquis. Continue beta-joanne 25 mg b.i.d. and continue Cardizem 120 mg to control the heart rate. We will follow with you. Status post failed radiofrequency ablation and recurrence of AFib. Thank you Dr. Mooney for providing us the opportunity in taking care of the patient. Raphael Tapia MD
[2017-05-09] MEDS: TADALAFIL 40 MG PO SCH (22:51)
--- NOTE | 2017-05-09 23:36 | PN ---
DATE: 05/09/2017 SUBJECTIVE: This patient was seen and evaluated earlier. Tolerating the diet. PHYSICAL EXAMINATION: VITAL SIGNS: Temperature 97.9, blood pressure 134/73, pulse 89, and respirations 20. HEENT: Atraumatic and anicteric. NECK: Supple. HEART: S1, S2 heard. LUNGS: Bilateral air entry present. ABDOMEN: Soft. There is no mass palpable. No tenderness. EXTREMITIES: The patient has right foot splint present. LABORATORY DATA: Hemoglobin 10.3, hematocrit 31, WBC 6.2, and platelets 318. Chemistries essentially that showed LFTs normal. Magnesium is 1.3. IMPRESSION: This 71-year-old patient admitted with diarrhea, vomiting, and abdominal pain. Clinically suspected for gastroenteritis. The patient is clinically improved. Has atrial fibrillation with a rapid ventricular response, was in the unit now, remains stable, transfer back to the telemetry. The patient has a history of EGD and colonoscopy done few years ago. The patient is on long-term PPI. The patient is also hypomagnesemic. Would recommend: 1. Stool for C. diff. Close followup. The patient is on Eliquis. Would benefit from elective EGD and colonoscopic evaluation. Thank you very much for allowing us to participate in the care of the patient. Delmy Schaeffer MD
[2017-05-10] MEDS: Insulin Reg-LOW-Coverage SC SCH ×4 (07:55→22:37)
[2017-05-10] MEDS: diltiaZEM 120 mg/24 Hours CD Cap PO SCH ×2 (08:23→10:02)
--- NOTE | 2017-05-10 08:59 | PN ---
DATE: 05/09/2017 SUBJECTIVE: This is a 71-year-old female. The patient is seen and examined on the bedside, looking comfortable. No nausea, no vomiting, or abdominal pain, but is getting arrhythmias. Heart rate is up and down. Cardiology is on the case. Gastroenterology is on the case. No fever, no chills. No headache, no dizziness. No urinary problem. PHYSICAL EXAMINATION VITAL SIGNS: Temperature 97.9, pulse 92, blood pressure 134/73, respiratory rate 20. HEENT: Head is normocephalic and atraumatic. Eyes; PERRLA. Extraocular muscles are intact. Conjunctivae are clear. Nose is patent. Mucous membrane moist. NECK: Supple. No carotid bruits. No JVD or thyromegaly. CHEST: Bilaterally symmetrical. HEART: S1 and S2 positive. LUNGS: Clear to auscultation. ABDOMEN: Soft. Bowel sounds present. No organomegaly. EXTREMITIES: No edema. No cyanosis. NEUROLOGIC: The patient is awake and alert. Moving all 4 extremities. No focal deficits. MEDICATIONS: Ambien, Cardizem, Cardura, Eliquis, Breo Ellipta, Lexapro, Lipitor, Lopressor, magnesium oxide, Protonix, Adcirca, and Xanax. LABORATORY DATA: White blood cells 6.0, hemoglobin 10.3, hematocrit 31.0 and platelets 318. Sodium 140, potassium 3.9, BUN 10, creatinine 0.9 and glucose 331, 350, 253. Hemoglobin A1c 10.7, magnesium 1.3. ASSESSMENT AND PLAN: The patient is a 71-year-old lady with uncontrolled diabetes mellitus. Hemoglobin A1c is 10.7, insulin requiring type 2, hypomagnesemia, hypertriglyceridemia, anemia, seen by Dr. Schaeffer per Gastroenteritis, nausea, vomiting, history of chronic obstructive pulmonary disease, congestive heart failure, coronary artery disease, open heart surgery, coronary artery bypass graft, right foot fracture, has splint. The patient was in ICU, now transferred to telemetry, tolerating food. The patient has had colonoscopy and endoscopy done 4 to 5 years ago. Taking pantoprazole on a regular basis. Gastroenterology recommending elective gastrointestinal evaluation based on clinical course with patient's other comorbidities including pulmonary hypertension. Gastroenterology requested Clostridium difficile toxin examination, seen by Dr. Villalba and Dr. Tapia also. Sleep apnea syndrome as per Dr. Villalba, pulmonary hypertension, need outpatient sleep study. Bought amiodarone loading dose. She will continue pulmonary vasodilators, sleep apnea precautions, repeat labs. We will follow. Marry Mooney MD
[2017-05-10] MEDS: Pantoprazole 40 mg EC Tab PO SCH (09:25)
[2017-05-10] MEDS: Magnesium Oxide 400 mg Tab UD PO SCH ×2 (09:27→17:51)
[2017-05-10] MEDS: NEBIVOLOL 2.5 MG PO SCH (09:29)
[2017-05-10] MEDS: VILANTEROL IH SCH (09:29)
[2017-05-10] MEDS: FLUTICASONE IH SCH (09:29)
--- NOTE | 2017-05-10 14:33 | PN ---
DATE: REASON FOR CONSULTATION AND FOLLOWUP: Atrial fibrillation, history of coronary artery disease admitted with diarrhea. SUBJECTIVE: Denies any chest pain, shortness of breath or any palpitation. OBJECTIVE/PHYSICAL EXAMINATION: GENERAL: Not in apparent distress. VITAL SIGNS: As follows, temperature afebrile, heart rate 93, and blood pressure 140/70. HEENT: PERRLA. Extraocular muscles intact. NECK: Supple. No carotid bruit or thyromegaly. CHEST: Clear to auscultation. HEART: S1 and S2 regular. ABDOMEN: Soft. EXTREMITIES: Clubbing and cyanosis negative. LABORATORY DATA: Blood workup as follows, WBC 6.8, hemoglobin 10, hematocrit 31.0, and platelet count 318. Chemistry shows sodium 140, potassium 3.9, chloride 106, carbon dioxide 29, anion gap of 10, BUN 10, and creatinine 0.9. Triglycerides 170, cholesterol 112, LDL 47, and HDL 31. IMPRESSION: A 71-year-old female with past medical history significant for coronary heart disease status post coronary artery bypass surgery and paroxysmal atrial fibrillation admitted with the rapid ventricular rate, recently cardiac catheterization done by Dr. Singh at [facility], told patent graft, status post recently radiofrequency ablation for atrial fibrillation failed last time and the patient underwent transesophageal echocardiography cardioversion in 04/18/2017. Admitted at this time with the diarrhea, the patient reversed to atrial fibrillation. The patient is on amiodarone, last time amiodarone was started and discontinued, but the patient apparently did not take amiodarone, restarted here with a loading dose. RECOMMENDATIONS: Continue anticoagulation. Continue Cardizem CD 120 mg daily. Continue amiodarone 400 mg p.o. t.i.d. till today followed by 200 mg from tomorrow. Continue Eliquis 5 mg q. 2 hours. Discontinue telemetry. Continue metoprolol. We will follow with you. Thank you Dr. Mooney for providing us the opportunity in taking care of the patient, Brigitte Nance. We will discontinue telemetry. No further cardiac workup is planned at this time. Once the patient is stable from GI point of view, the patient can be discharged home. Upon discharge, the patient will be followed up with Dr. Horn, cable rigger, at [facility]. The patient has an appointment next Tuesday. Discussed with the patient and discussed with the patient's family. Raphael Tapia MD
[2017-05-10 16:49] VITALS: RESP 20
--- NOTE | 2017-05-10 18:35 | CP.PCM.PN ---
<Mery Nance - Last Filed: 05/10/17 18:34> Subjective - Date & Time of Evaluation Date of Evaluation: 05/10/17 Time of Evaluation: 10:00 - Subjective Subjective: S&E at bedsdie, no acute overnight events reported, chart reviewed. Patient denies N/V/D, last BM was 2 days ago, no abdominal pain, tolerating oral intake. Objective - Vital Signs/Intake and Output Vital Signs (last 24 hours): Temp Pulse Resp BP Pulse Ox 98 F 92 H 20 132/68 95 05/10/17 16:48 05/10/17 16:48 05/10/17 16:48 05/10/17 16:48 05/10/17 16:48 Intake and Output: 05/10/17 05/10/17 06:59 18:59 Intake Total 240 480 Output Total 800 Balance -560 480 - Medications Medications: Current Medications Alprazolam (Xanax) 0.25 mg PO BID [facility] PRN Reason: Protocol Stop: 05/15/17 10:01 Last Admin: 05/10/17 17:51 Dose: 0.25 mg Amiodarone HCl (Cordarone) 400 mg PO TID [facility] Stop: 05/10/17 23:59 Last Admin: 05/10/17 17:50 Dose: 400 mg Amiodarone HCl (Cordarone) 200 mg PO DAILY [facility] Apixaban (Eliquis) 5 mg PO Q12 [facility] PRN Reason: Protocol Last Admin: 05/10/17 09:27 Dose: 5 mg Atorvastatin Calcium (Lipitor) 40 mg PO DAILY [facility] Last Admin: 05/10/17 09:26 Dose: 40 mg Diltiazem HCl (Cardizem Cd) 120 mg PO DAILY [facility] Last Admin: 05/10/17 10:02 Dose: Not Given Escitalopram Oxalate (Lexapro) 20 mg PO DAILY [facility] Last Admin: 05/10/17 09:28 Dose: 20 mg Home Med (Home Med) 2.5 unit PO DAILY [facility] Last Admin: 05/10/17 09:29 Dose: 2.5 unit Insulin Human Regular (Humulin R Low) 0 units SC ACHS [facility] PRN Reason: Protocol Last Admin: 05/10/17 17:56 Dose: 5 units Magnesium Oxide (Mag-Ox) 400 mg PO BID [facility] Last Admin: 05/10/17 17:51 Dose: 400 mg Metoprolol Tartrate (Lopressor) 25 mg PO BID [facility] Last Admin: 05/10/17 17:51 Dose: 25 mg Tadalafil [Adcirca] (40 Mg) 40 mg PO HS [facility] Last Admin: 05/09/17 22:51 Dose: Not Given Fluticasone/Vilanterol [Breo Ellipta 100-25 Mcg Inh (Home Med) 1 pow IH DAILY [facility] Last Admin: 05/10/17 09:29 Dose: 1 pow Pantoprazole Sodium (Protonix Ec Tab) 40 mg PO DAILY [facility] Last Admin: 05/10/17 09:25 Dose: 40 mg Zolpidem Tartrate (Ambien) 5 mg PO HS PRN; Protocol PRN Reason: Insomnia Last Admin: 05/09/17 22:37 Dose: 5 mg - Labs Labs: 05/09/17 05:45 05/09/17 05:45 PT 16.5 SECONDS (9.4-12.5) H 05/07/17 14:55 INR 1.50 (0.93-1.08) H 05/07/17 14:55 APTT 32.8 Seconds (25.1-36.5) 05/07/17 14:55 - Constitutional Appears: No Acute Distress - Eye Exam Eye Exam: Normal appearance. absent: Scleral icterus - ENT Exam ENT Exam: Mucous Membranes Moist - Neck Exam Neck Exam: Normal Inspection - Respiratory Exam Respiratory Exam: NORMAL BREATHING PATTERN. absent: Respiratory Distress - Cardiovascular Exam Cardiovascular Exam: +S1, +S2 - GI/Abdominal Exam GI & Abdominal Exam: Soft, Normal Bowel Sounds. absent: Guarding, Tenderness, Rebound - Extremities Exam Extremities Exam: absent: Calf Tenderness - Neurological Exam Neurological Exam: Alert, Awake, Oriented x3 - Skin Skin Exam: Dry, Warm Assessment and Plan - Assessment and Plan (Free Text) Assessment: ASSESSMENT: Resolved N/V/D, clincially suspect gastroenteritis Atrial Fibrillation,w/ RVR Hypomagnesium DM PLAN: diet as tolerated on Amiodarone and Cardizem on Eliquis monitor electrolytes and replace as needed elective egd/colon , discussed w/ patient Seen and discussed w/ Dr. Schaeffer. <Delmy Schaeffer V - Last Filed: 05/10/17 22:20> Objective - Vital Signs/Intake and Output Vital Signs (last 24 hours): Temp Pulse Resp BP Pulse Ox 98 F 92 H 20 132/68 95 05/10/17 16:48 05/10/17 16:48 05/10/17 16:48 05/10/17 16:48 05/10/17 16:48 Intake and Output: 05/10/17 05/11/17 18:59 06:59 Intake Total 480 Balance 480 - Medications Medications: Current Medications Alprazolam (Xanax) 0.25 mg PO BID [facility] PRN Reason: Protocol Stop: 05/15/17 10:01 Last Admin: 05/10/17 17:51 Dose: 0.25 mg Amiodarone HCl (Cordarone) 400 mg PO TID [facility] Stop: 05/10/17 23:59 Last Admin: 05/10/17 17:50 Dose: 400 mg Amiodarone HCl (Cordarone) 200 mg PO DAILY [facility] Apixaban (Eliquis) 5 mg PO Q12 [facility] PRN Reason: Protocol Last Admin: 05/10/17 21:15 Dose: 5 mg Atorvastatin Calcium (Lipitor) 40 mg PO DAILY [facility] Last Admin: 05/10/17 09:26 Dose: 40 mg Diltiazem HCl (Cardizem Cd) 120 mg PO DAILY [facility] Last Admin: 05/10/17 10:02 Dose: Not Given Escitalopram Oxalate (Lexapro) 20 mg PO DAILY [facility] Last Admin: 05/10/17 09:28 Dose: 20 mg Home Med (Home Med) 2.5 unit PO DAILY [facility] Last Admin: 05/10/17 09:29 Dose: 2.5 unit Insulin Human Regular (Humulin R Low) 0 units SC ACHS [facility] PRN Reason: Protocol Last Admin: 05/10/17 17:56 Dose: 5 units Magnesium Oxide (Mag-Ox) 400 mg PO BID [facility] Last Admin: 05/10/17 17:51 Dose: 400 mg Metoprolol Tartrate (Lopressor) 25 mg PO BID [facility] Last Admin: 05/10/17 17:51 Dose: 25 mg Tadalafil [Adcirca] (40 Mg) 40 mg PO HS [facility] Last Admin: 05/09/17 22:51 Dose: Not Given Fluticasone/Vilanterol [Breo Ellipta 100-25 Mcg Inh (Home Med) 1 pow IH DAILY [facility] Last Admin: 05/10/17 09:29 Dose: 1 pow Pantoprazole Sodium (Protonix Ec Tab) 40 mg PO DAILY [facility] Last Admin: 05/10/17 09:25 Dose: 40 mg Zolpidem Tartrate (Ambien) 5 mg PO HS PRN; Protocol PRN Reason: Insomnia Last Admin: 05/09/17 22:37 Dose: 5 mg - Labs Labs: 05/09/17 05:45 05/09/17 05:45 PT 16.5 SECONDS (9.4-12.5) H 05/07/17 14:55 INR 1.50 (0.93-1.08) H 05/07/17 14:55 APTT 32.8 Seconds (25.1-36.5) 05/07/17 14:55 Attending/Attestation - Attestation I have personally seen and examined this patient.: Yes I have fully participated in the care of the patient.: Yes I have reviewed all pertinent clinical information, including history, physical exam and plan: Yes Notes (Text): this is an addendum to the GE progress report dictated by Mery Nance APN. Patient is tolerating the diet No complaints of abdominal pain On examination abdomen soft nontender Patient is on Protonix Last endoscopy years ago Would benefit from elective EGD and colonoscopy extending discussed with the patient at length he wants to consider R for discharge from [facility] patient is on elaquis history A. fib 05/10/17 22:17
--- NOTE | 2017-05-11 00:39 | CP.PCM.PN ---
<Dania Moon - Last Filed: 05/11/17 00:36> Subjective - Date & Time of Evaluation Date of Evaluation: 05/10/17 Time of Evaluation: 10:00 - Subjective Subjective: 71 yr female w/ histor of CAD s/p CABG, Afib w RVR, DM II insulin dependent, L rotator cuff pain, hyperlipidemia, cardiomyopathy, COPD, pulmonary hypertension, anemia, interstitial dermatitis of legs. [facility] [place] episodes of intractable vomiting and diarrhea. Today, she appears comfortable in bed and denies any more episodes of n/v or diarrhea. She denies any fever, chest pain, SOB, headache, urinary changes or distress. Objective - Vital Signs/Intake and Output Vital Signs (last 24 hours): Temp Pulse Resp BP Pulse Ox 98 F 92 H 20 132/68 95 05/10/17 16:48 05/10/17 16:48 05/10/17 16:48 05/10/17 16:48 05/10/17 16:48 Intake and Output: 05/10/17 05/11/17 18:59 06:59 Intake Total 480 360 Balance 480 360 - Medications Medications: Current Medications Alprazolam (Xanax) 0.25 mg PO BID [facility] PRN Reason: Protocol Stop: 05/15/17 10:01 Last Admin: 05/10/17 17:51 Dose: 0.25 mg Amiodarone HCl (Cordarone) 200 mg PO DAILY [facility] Apixaban (Eliquis) 5 mg PO Q12 [facility] PRN Reason: Protocol Last Admin: 05/10/17 21:15 Dose: 5 mg Atorvastatin Calcium (Lipitor) 40 mg PO DAILY [facility] Last Admin: 05/10/17 09:26 Dose: 40 mg Diltiazem HCl (Cardizem Cd) 120 mg PO DAILY [facility] Last Admin: 05/10/17 10:02 Dose: Not Given Escitalopram Oxalate (Lexapro) 20 mg PO DAILY [facility] Last Admin: 05/10/17 09:28 Dose: 20 mg Home Med (Home Med) 2.5 unit PO DAILY [facility] Last Admin: 05/10/17 09:29 Dose: 2.5 unit Insulin Human Regular (Humulin R Low) 0 units SC ACHS [facility] PRN Reason: Protocol Last Admin: 05/10/17 22:37 Dose: 4 units Magnesium Oxide (Mag-Ox) 400 mg PO BID [facility] Last Admin: 05/10/17 17:51 Dose: 400 mg Metoprolol Tartrate (Lopressor) 25 mg PO BID [facility] Last Admin: 05/10/17 17:51 Dose: 25 mg Tadalafil [Adcirca] (40 Mg) 40 mg PO HS [facility] Last Admin: 05/09/17 22:51 Dose: Not Given Fluticasone/Vilanterol [Breo Ellipta 100-25 Mcg Inh (Home Med) 1 pow IH DAILY [facility] Last Admin: 05/10/17 09:29 Dose: 1 pow Pantoprazole Sodium (Protonix Ec Tab) 40 mg PO DAILY [facility] Last Admin: 05/10/17 09:25 Dose: 40 mg Zolpidem Tartrate (Ambien) 5 mg PO HS PRN; Protocol PRN Reason: Insomnia Last Admin: 05/10/17 22:37 Dose: 5 mg - Labs Labs: 05/09/17 05:45 05/09/17 05:45 PT 16.5 SECONDS (9.4-12.5) H 05/07/17 14:55 INR 1.50 (0.93-1.08) H 05/07/17 14:55 APTT 32.8 Seconds (25.1-36.5) 05/07/17 14:55 - Constitutional Appears: Well, No Acute Distress - Head Exam Head Exam: NORMOCEPHALIC - Eye Exam Eye Exam: Normal appearance Pupil Exam: NORMAL ACCOMODATION - ENT Exam ENT Exam: Mucous Membranes Moist - Neck Exam Neck Exam: Full ROM, Normal Inspection - Respiratory Exam Respiratory Exam: Clear to Ausculation Bilateral, NORMAL BREATHING PATTERN - Cardiovascular Exam Cardiovascular Exam: Irregular Rhythm, +S1, +S2 - GI/Abdominal Exam GI & Abdominal Exam: Soft, Normal Bowel Sounds - Rectal Exam Rectal Exam: Deferred - Exam Exam: NORMAL INSPECTION - Extremities Exam Additional comments: R lower leg in brace. limited ROM. L shoulder rotator cuff pain. limited ROM. - Neurological Exam Neurological Exam: Alert, Awake, Oriented x3 - Psychiatric Exam Psychiatric exam: Normal Affect, Normal Mood - Skin Skin Exam: Dry, Intact, Normal Color, Warm Assessment and Plan (1) Gastroenteritis Status: Acute (2) Hyperglycemia Status: Acute (3) Nausea vomiting and diarrhea Status: Acute (4) Atrial fibrillation with rapid ventricular response Status: Chronic - Assessment and Plan (Free Text) Plan: Continue medications as prescribed. Cardio - Dr. Tapia: D/c tele. F/u at [facility] w/ EP Dr. Horn appt next tuesday. GI - Mery KENNEY: protonix. considering elective EGD/colonscopy. Pulmonary - Dr. Villalba: Sleep apnea precaution, HOB 45, OOB, Physical therapy. Reviewed: ECG (+) Afib w/ RVR, L axis deviation, anteroseptal infarct, ST abn. inferolateral subendocarial injury. CXR (-) WNL <Marry Mooney - Last Filed: 05/11/17 22:38> Objective - Vital Signs/Intake and Output Vital Signs (last 24 hours): Temp Pulse Resp BP Pulse Ox 97.9 F 60 20 126/71 95 05/11/17 07:30 05/11/17 09:41 05/11/17 07:30 05/11/17 09:41 05/11/17 07:30 Intake and Output: 05/11/17 05/12/17 18:59 06:59 Intake Total 640 Balance 640 - Labs Labs: 05/09/17 05:45 05/09/17 05:45 PT 16.5 SECONDS (9.4-12.5) H 05/07/17 14:55 INR 1.50 (0.93-1.08) H 05/07/17 14:55 APTT 32.8 Seconds (25.1-36.5) 05/07/17 14:55 Assessment and Plan - Assessment and Plan (Free Text) Plan: pt is seen and examined at bed side , looking comfortable , d/d with manpower development specialist manager .and staff , agreed with all above , meds , labs and chart noted . seen by cardiology , gi and pul , appreciated will f/u
--- NOTE | 2017-05-11 02:46 | PN ---
PULMONARY PROGRESS NOTE DATE: 05/10/2017 REFERRING PHYSICIAN: Marry Mooney MD SUBJECTIVE: She is out of bed to chair. Feels okay. No headache. No rhinitis. No palpitation. No nausea. No vomiting. No leg pain or leg swelling. OBJECTIVE: GENERAL: In no acute distress. VITAL SIGNS: Temperature is 98, heart rate is 92, respiratory rate is 20, blood pressure is 132/68, and pulse ox is 95% on room air. HEENT: Moist mucous membrane. Crowded airway. Mallampati score is 4. NECK: Supple. No JVD. LUNGS: Has a fair airflow with few rhonchi. HEART: Irregularly irregular. ABDOMEN: Soft and nontender. No organomegaly. EXTREMITIES: No edema. NEUROLOGIC: Awake and alert. Follows simple commands. MEDICATIONS: She is on Ambien 5 mg at bedtime p.r.n., Cardizem CD 120 mg daily, amiodarone loading dose, Eliquis 5 mg twice a day, Breo one puff twice a day, insulin coverage, Lexapro 20 mg daily, Lipitor 40 mg daily, metoprolol tartarate 25 mg twice a day, magnesium oxide 400 mg twice a daily, Protonix 40 mg daily, Adcirca 40 mg, which is on hold, and Xanax 0.25 mg twice a day. LABORATORY DATA: Shows hemoglobin 10.3 and hematocrit 31. Blood sugar 399. IMPRESSION AND PLAN: Atrial fibrillation with rapid ventricular response, history of cardioversion, obstructive sleep apnea syndrome, chronic obstructive lung disease, diabetes, hypertension, hyperlipidemia, coronary artery disease, history of coronary artery bypass surgery, cardiomyopathy with decreased left ventricular function, and pulmonary hypertension, presently on amiodarone and beta-joanne. Feels better. Once improved, we will discharge, will need attended sleep study, fall precaution, and continue therapy. Thank you and we will follow with you. Raphael Villalba MD
[2017-05-11] MEDS: Insulin Reg-LOW-Coverage SC SCH ×2 (08:27→11:59)
[2017-05-11 09:04] VITALS: TEMP 97.9
[2017-05-11] MEDS: Magnesium Oxide 400 mg Tab UD PO SCH (09:40)
[2017-05-11] MEDS: Pantoprazole 40 mg EC Tab PO SCH (09:40)
[2017-05-11] MEDS: diltiaZEM 120 mg/24 Hours CD Cap PO SCH (09:41)
[2017-05-11 09:45] VITALS: BP 126/71; PULSE 60
[2017-05-11] MEDS ORDERED: POLYETHYLENE GLYCOL 3350 17 GM/Dose PACKET PO ONE (11:31)
[2017-05-11] MEDS: NEBIVOLOL 2.5 MG PO SCH (12:05)
[2017-05-11] MEDS: VILANTEROL IH SCH (12:06)
[2017-05-11] MEDS: FLUTICASONE IH SCH (12:06)
--- NOTE | 2017-05-11 15:39 | CP.PCM.PN ---
Subjective - Date & Time of Evaluation Date of Evaluation: 05/11/17 Time of Evaluation: 11:00 - Subjective Subjective: Seen and examined at the bedside earlier today, the chart was reviewed. Patient denies nausea, vomiting, diarrhea or abdominal pain. Tolerating oral intake. No BM for 3 days. No acute overnight events reported. Objective - Vital Signs/Intake and Output Vital Signs (last 24 hours): Temp Pulse Resp BP Pulse Ox 97.9 F 60 20 126/71 95 05/11/17 07:30 05/11/17 09:41 05/11/17 07:30 05/11/17 09:41 05/11/17 07:30 Intake and Output: 05/11/17 05/11/17 06:59 18:59 Intake Total 540 640 Output Total 400 Balance 140 640 - Labs Labs: 05/09/17 05:45 05/09/17 05:45 PT 16.5 SECONDS (9.4-12.5) H 05/07/17 14:55 INR 1.50 (0.93-1.08) H 05/07/17 14:55 APTT 32.8 Seconds (25.1-36.5) 05/07/17 14:55 - Constitutional Appears: No Acute Distress - Eye Exam Eye Exam: Normal appearance. absent: Scleral icterus - ENT Exam ENT Exam: Mucous Membranes Moist - Neck Exam Neck Exam: Normal Inspection - Respiratory Exam Respiratory Exam: NORMAL BREATHING PATTERN. absent: Respiratory Distress - Cardiovascular Exam Cardiovascular Exam: +S1, +S2 - GI/Abdominal Exam GI & Abdominal Exam: Soft, Normal Bowel Sounds. absent: Guarding, Tenderness, Rebound - Extremities Exam Extremities Exam: absent: Calf Tenderness, Pedal Edema - Neurological Exam Neurological Exam: Alert, Awake, Oriented x3 - Skin Skin Exam: Dry, Warm Assessment and Plan - Assessment and Plan (Free Text) Assessment: ASSESSMENT: Resolved N/V/D, clincially suspect gastroenteritis Atrial Fibrillation,w/ RVR Hypomagnesium DM Constipation PLAN: Give dose of MiraLAX today diet as tolerated on Amiodarone and Cardizem on Eliquis monitor electrolytes and replace as needed elective egd/colon outpatient , discussed w/ patient Seen and discussed w/ Dr. Schaeffer.
--- NOTE | 2017-05-11 19:22 | PN ---
DATE: 05/11/2017 PULMONARY PROGRESS NOTE REFERRING PHYSICIAN: Dr. Mooney. SUBJECTIVE: She is out of bed to chair. Night was unremarkable. No headache. No rhinitis. No nausea. No palpitation. No dysuria, leg pain or leg swelling. OBJECTIVE: GENERAL: In no acute distress. VITAL SIGNS: Temperature is 98, heart rate is 60, respiratory rate is 20, blood pressure is 126/71, and pulse ox is 95% on room air. HEENT: Moist mucous membrane. Crowded airway. NECK: Supple. No JVD. LUNGS: Has a fair airflow with rhonchi. HEART: S1 and S2. ABDOMEN: Soft, nontender. No organomegaly. EXTREMITIES: No edema. NEUROLOGIC: Awake and alert. Follows simple commands. MEDICATIONS: She is on Ambien 5 mg at bedtime p.r.n., Cardizem CD 120 mg daily, amiodarone 200 mg daily, Eliquis 5 mg twice a day, Breo 100/25 one puff daily, Lexapro 20 mg daily, Lipitor 40 mg daily, metoprolol tartarate 20 mg twice a day, magnesium oxide 400 mg twice a day, Protonix 40 mg daily, Adcirca 40 mg daily, which is on hold, and Xanax 0.25 mg twice a day. LABORATORY DATA: Reviewed and blood sugar is 390 from yesterday. IMPRESSION AND PLAN: Atrial fibrillation with rapid ventricular response, history of cardioversion in the past, has recurrent atrial fibrillation, no obstructive sleep apnea syndrome, chronic obstructive lung disease, diabetes, hypertension, hyperlipidemia, coronary artery disease, history of coronary artery bypass surgery, cardiomyopathy with decreased left ventricular function, and pulmonary hypertension. He has been started on amiodarone and beta-joanne. Feeling better. Outpatient need attended sleep study, stable, go back to subacute for continue care. Thank you and we will follow. Raphael Villalba MD
--- NOTE | 2017-05-11 23:17 | PN ---
DATE: 05/11/2017 LOCATION: The patient is in Room number 572, bed 2. REASON FOR CONSULTATION AND FOLLOWUP: Atrial fibrillation, coronary artery disease, and admitted with diarrhea. SUBJECTIVE: The patient denies any chest pain, shortness of breath, or palpitation. The patient sitting in chair without any cardiac symptoms. PHYSICAL EXAMINATION: VITAL SIGNS: Blood pressure of 126/71, respirations of 20, pulse of 60, and temperature of 97.9. HEENT: Head is normocephalic. Eyes, pupils are normal. Conjunctivae is slightly pale. NECK: JVP low. Carotids equal. THORAX: AP diameter normal. LUNGS: Clear. CARDIOVASCULAR: S1 and S2. ABDOMEN: Soft and nontender. No organomegaly. Bowel sounds are normal. EXTREMITIES: No clubbing and no cyanosis. LABORATORY DATA: WBC of 6.2, hemoglobin of 10.3, hematocrit of 31.0, and platelets of 318. Random sugar is 399. Other labs are reported in our previous consult. DIAGNOSES AND PLAN: Coronary artery disease status post coronary artery bypass surgery and paroxysmal atrial fibrillation admitted with atrial fibrillation with rapid rate. The patient had cardiac catheterization done by Dr. Singh at [facility]. The patient was told that the patient had patent graft status post recent radiofrequency ablation for atrial fibrillation, failed last time, then the patient underwent transesophageal echocardiography with cardioversion on 04/18/2017. The patient admitted at this time with diarrhea and the patient went back into atrial fibrillation. The patient at home was supposed to be on amiodarone, but apparently was not taking. The patient has been prescribed amiodarone. Prothrombin time on 05/07/2017 was 16.5 and INR was 1.5. The plan is to continue present therapy. We will follow with you. Raphael Nuens MD
== END 2017-05-11 14:50 | DRG 392 ==
LOC: ED 13:41 → ERH 15:56 → 5RNO 16:34 → CCU 05-08 06:40 → 2RSO 05-08 20:14 → OBSVTOIN 05-08 22:42 → 5RSO 05-10 13:20
PROVIDERS: ADMIT Internal Medicine; ATTEND Internal Medicine
DX: K52.9 Noninfective gastroenteritis and colitis, unspecified (principal); I42.9 Cardiomyopathy, unspecified; Z68.41 Body mass index [BMI] 40.0-44.9, adult; I48.0 Paroxysmal atrial fibrillation; E11.649 Type 2 diabetes mellitus with hypoglycemia without coma; I11.0 Hypertensive heart disease with heart failure; I50.9 Heart failure, unspecified; E11.65 Type 2 diabetes mellitus with hyperglycemia; E86.0 Dehydration; J44.9 Chronic obstructive pulmonary disease, unspecified; I25.10 Atherosclerotic heart disease of native coronary artery without angina pectoris; E78.5 Hyperlipidemia, unspecified; I27.20 Pulmonary hypertension, unspecified; D64.9 Anemia, unspecified; E83.42 Hypomagnesemia; F32.9 Major depressive disorder, single episode, unspecified; E66.9 Obesity, unspecified; K59.00 Constipation, unspecified; M19.90 Unspecified osteoarthritis, unspecified site; I08.3 Combined rheumatic disorders of mitral, aortic and tricuspid valves; F41.9 Anxiety disorder, unspecified; L30.9 Dermatitis, unspecified; E78.1 Pure hyperglyceridemia; Z95.1 Presence of aortocoronary bypass graft; Z87.891 Personal history of nicotine dependence; Z87.01 Personal history of pneumonia (recurrent); Z79.4 Long term (current) use of insulin

== ENCOUNTER 2017-05-16 09:41 | Inpatient (IN) | payer MEDICARE, BC ==
[2017-05-16] MEDS ORDERED: Sodium Chloride 0.9% 1,000 ML IV STA (10:08)
--- NOTE | 2017-05-16 10:21 | ED PDOC ---
Arrival/HPI - General Chief Complaint: GI Problem Time Seen by Provider: 05/16/17 09:42 Historian: Patient - History of Present Illness Narrative History of Present Illness (Text): 05/16/17 10:00 Brigitte Nance is a 71 year old female, whose past medical history includes CHF , hypertension, and diabetes, with hx of CAD s/p cabg, with recent cath at [facility] , recent JORGE LUIS with cardioversion, recommended for repeat ablation, on amiodarone and cardizem. who presents to the emergency department complaining of nausea, vomiting, and diarrhea for the past 3 days. Patients reports she is compliant with medication but fears that she has been vomiting it all up. She states having generalized abdominal pain. Patient denies shortness of breath, chest pain, headache, fever, or other complaints. No hematemesis. PMD: Dr. Mooney Time/Duration: < week (3 days) Symptom Onset: Sudden Symptom Course: Unchanged Past Medical History - Provider Review Nursing Documentation Reviewed: Yes - Infectious Disease Hx of Infectious Diseases: None - Tetanus Immunization Tetanus Immunization: Unknown - Reproductive Menopause: Yes - Cardiac Hx Cardiac Disorders: Yes (CABG,OPEN HEART,CAD S/P ABLATION.) Hx Cardiac Arrhythmia: Yes (afib) Hx Circulatory Problems: Yes Hx Congestive Heart Failure: Yes Hx Hypertension: Yes Hx Peripheral Edema: Yes (rle +1 pitting lle +2 pitting) Other/Comment: cabg at i 5 vessels developed a blood clot in her heart had ablation - Pulmonary Hx Respiratory Disorders: Yes (denies pe, has home o2) Hx Chronic Obstructive Pulmonary Disease (COPD): Yes Hx Pneumonia: Yes - Neurological Hx Neurological Disorder: No - HEENT Hx HEENT Disorder: No - Renal Hx Renal Disorder: No - Endocrine/Metabolic Hx Endocrine Disorders: Yes Hx Diabetes Mellitus Type 1: Yes - Hematological/Oncological Hx Blood Disorders: No - Integumentary Hx Dermatological Disorder: Yes Other/Comment: left lower leg red and +2 edema with dry flakey skin to foot and lower leg, right lower extremity less red +3 pitting edema to foot with dry flakey skin. Pt stated" My legs have been like this since after my open heart sx".pt now wearing a boot/splint due to r ft fx was in [facility] for rehab, r forearm fading skin discoloration due to bloodwork and iv attempts as per pt - Musculoskeletal/Rheumatological Hx Falls: Yes (fell 01/2017) - Gastrointestinal Hx Gastrointestinal Disorders: Yes (obese) - Genitourinary/Gynecological Hx Genitourinary Disorders: Yes (C/S X 1) - Psychiatric Hx Psychophysiologic Disorder: Yes Hx Anxiety: Yes Hx Depression: Yes Hx Substance Use: No - Surgical History Hx Open Heart Surgery: Yes Other/Comment: rt foot fracture + splint - Anesthesia Hx Anesthesia Reactions: No - Suicidal Assessment Feels Threatened In Home Enviroment: No Family/Social History - Physician Review Nursing Documentation Reviewed: Yes Family/Social History: Unknown Family HX Smoking Status: Former Smoker Hx Alcohol Use: No Hx Substance Use: No Hx Substance Use Treatment: No Allergies/Home Meds Allergies/Adverse Reactions: Allergies No Known Allergies Allergy (Verified 05/07/17 13:54) Home Medications: Home Meds Medication Instructions Recorded Confirmed Alprazolam 0.25 mg PO BID 09/10/14 05/16/17 Atorvastatin [Lipitor] 40 mg PO DAILY 09/10/14 05/16/17 Escitalopram [Lexapro] 20 mg PO DAILY 09/10/14 05/16/17 Apixaban [Eliquis] 5 mg PO BID 04/15/17 05/16/17 Folic Acid 1 mg PO DAILY 04/15/17 05/16/17 Montelukast [Singulair] 10 mg PO HS 04/15/17 05/16/17 [id number] Ethyl Esters 1 GM 1 gm PO BID 04/15/17 05/16/17 [Lovaza] Pantoprazole [Protonix EC Tab] 40 mg PO DAILY 04/15/17 05/16/17 Tadalafil [Adcirca] 20 mg PO HS 04/15/17 05/16/17 Acetaminophen [8Hr Arthritis Pain] 650 mg PO Q8 PRN 05/16/17 05/16/17 Albuterol/Ipratropium [Duoneb 3 3 ml INH Q6 05/16/17 05/16/17 mg/0.5 mg (3 ml) UD] Glipizide [Glipizide Xl] 10 mg PO DAILY 05/16/17 05/16/17 Insulin Detemir [Levemir] 100 unit SQ ACHS 05/16/17 05/16/17 Insulin Human Regular-LOW [HumuLIN 100 units SC ACHS 05/16/17 05/16/17 R LOW] Metformin ER [Glucophage XR] 500 mg PO BID 05/16/17 05/16/17 Nebivolol [Bystolic] 2.5 mg PO DAILY 05/16/17 05/16/17 Ondansetron HCl [Zofran] 4 mg PO Q6 PRN 05/16/17 05/16/17 Review of Systems - Review of Systems Constitutional: absent: Fevers Respiratory: absent: SOB Cardiovascular: absent: Chest Pain Gastrointestinal: Abdominal Pain, Diarrhea, Nausea, Vomiting. absent: Constipation, Appetite Changes, Hematochezia, Hematemesis Genitourinary Female: absent: Dysuria, Frequency Musculoskeletal: absent: Back Pain Skin: absent: Rash Neurological: absent: Headache, Dizziness Endocrine: absent: Polyuria Physical Exam Vital Signs Temp Pulse Resp BP Pulse Ox 05/16/17 12:19 133 H 144/71 05/16/17 12:18 133 H 17 144/71 100 05/16/17 11:56 125 H 14 143/69 97 05/16/17 10:51 106 H 125/70 05/16/17 10:35 116 H 16 136/68 100 05/16/17 10:20 136 H 16 134/76 100 05/16/17 09:55 98.4 F 155 H 20 87/48 L 100 Temperature: Afebrile Blood Pressure: Hypotensive Pulse: Tachycardic Respiratory Rate: Normal Appearance: Positive for: Well-Appearing, Non-Toxic, Comfortable Pain Distress: None Mental Status: Positive for: Alert and Oriented X 3 - Systems Exam Head: Present: Atraumatic, Normocephalic Pupils: Present: PERRL Extroacular Muscles: Present: EOMI Conjunctiva: Present: Normal Respiratory/Chest: Present: Clear to Auscultation, Good Air Exchange. No: Respiratory Distress, Accessory Muscle Use Cardiovascular: Present: Irregular Rhythm, Tachycardic. No: Murmurs Abdomen: Present: Tenderness (mild tenderness on right lower quadrant ), Normal Bowel Sounds. No: Distention, Peritoneal Signs Upper Extremity: Present: Normal Inspection, Normal ROM, NORMAL PULSES. No: Cyanosis, Edema, Tenderness, Swelling, Erythema Lower Extremity: Present: Normal Inspection, NORMAL PULSES, Normal ROM, Capillary Refill < 2 s. No: Edema, Cyanosis, Tenderness, Swelling, Erythema, Deformity Neurological: Present: GCS=15, CN II-XII Intact, Speech Normal Skin: Present: Warm, Dry, Normal Color. No: Rashes Psychiatric: Present: Alert, Oriented x 3, Normal Insight, Normal Concentration Medical Decision Making ED Course and Treatment: 05/16/17 Impression: 71 year old female with mild tenderness on right lower quadrant and irregular rhythm and tachycardia on exam. Plan: -- Labs -- Urinalysis -- Cardizem and sodium chloride -- Reassess and disposition Progress Notes: 05/16/17 10:36 EKG shows atrial fibrillation at 156bpm with LAD, and ST changes, unchanged from 04/19/17. After cardizem and 500CC IVF, repeat hr:116 and repeat BP:134/76 05/16/17 10:37 Dr. Mooney aware and requesting GI and cardiology consult and Imaging 05/16/17 10:45 Labs significant for elevated creatinine and decreased gfr. Non-contrast CT ordered 05/16/17 11:49 CT negative for acute pathology. Heart rate increasing and cardizem drip started. Dr. Mooney at bedside. - Lab Interpretations Lab Results: 05/16/17 10:10 05/16/17 10:10 Lab Results 05/16/17 10:10: WBC 7.0, RBC 3.65, Hgb 11.0 L, Hct 33.8 L, MCV 92.6, MCH 30.1, MCHC 32.5, RDW 14.4, Plt Count 292, MPV 10.5, Gran % 59.3, Lymph % (Auto) 31.0, Teller % (Auto) 7.5 H, Eos % (Auto) 1.8, Baso % (Auto) 0.4, Gran # 4.17, Lymph # 2.2, Teller # 0.5, Eos # 0.1, Baso # 0.03 05/16/17 10:10: Blood Type B POSITIVE, Antibody Screen Negative, BBK History Checked No verified bt 05/16/17 10:10: Sodium 136, Potassium 4.8, Chloride 101, Carbon Dioxide 29, Anion Gap 11, BUN 31 H, Creatinine 1.3 H, Est GFR ( Amer) 49, Est GFR ( Non-Af Amer) 40, Random Glucose 156 H, Calcium 9.2, Phosphorus 4.0, Magnesium 1.7, Total Bilirubin 0.7, AST 25, ALT 39, Alkaline Phosphatase 111, Total Protein 6.3, Albumin 3.5, Globulin 2.8, Albumin/Globulin Ratio 1.3 05/16/17 10:10: PT 16.0 H, INR 1.44 H, APTT 33.1 I have reviewed the lab results: Yes - RAD Interpretation Radiology Orders: 05/16/17 10:44 ABD & PELVIS W/O PO OR IV CONT [CT] Stat - Medication Orders Current Medication Orders: diltiaZEM IVPB 100mg in NS (Cardizem 100mg In Ns) 100 mls @ 5 mls/hr IV .Q20H PRN; Protocol; 5 MG/HR PRN Reason: TITRATE PER MD ORDER Last Admin: 05/16/17 12:19 Dose: 5 mg/hr, 5 mls/hr eMAR Start Stop Document 05/16/17 12:19 SF (Rec: 05/16/17 12:21 SF [id number]) Intravenous Solution Start Date 05/16/17 Start Time 12:21 MAR Pulse and Blood Pressure Document 05/16/17 12:19 SF (Rec: 05/16/17 12:21 SF [id number]) Pulse Pulse Rate (60-90) 133 Blood Pressure Blood Pressure (100/60-150/90) 144/71 Titration Intervention Document 05/16/17 12:19 SF (Rec: 05/16/17 12:21 [id number]) Titration Intake Waste Amount 0 Container Volume 100 Titration Dosing Titration Dose 5 IV Rate 5 Intake/Decrease Started Sodium Chloride (Sodium Chloride 0.9%) 1,000 mls @ 80 mls/hr IV .[id number] RASHID Last Admin: 05/16/17 12:03 Dose: 80 mls/hr eMAR Start Stop Document 05/16/17 12:03 SF (Rec: 05/16/17 12:03 SF [id number]) Intravenous Solution Start Date 05/16/17 Start Time 12:03 End Date 05/17/17 Discontinued Medications Diltiazem HCl (Cardizem) 15 mg IVP STAT STA Stop: 05/16/17 10:16 Last Admin: 05/16/17 10:20 Dose: 15 mg IVP Administration Document 05/16/17 10:20 SF (Rec: 05/16/17 10:21 SF [id number]) Charges for Administration # of IVP Administrations 1 MAR Pulse and Blood Pressure Document 05/16/17 10:20 SF (Rec: 05/16/17 10:21 SF [id number]) Pulse Pulse Rate (60-90) 149 Blood Pressure Blood Pressure (100/60-150/90) 87/48 Sodium Chloride (Sodium Chloride 0.9%) 1,000 mls @ 999 mls/hr IV .Q1H1M STA Stop: 05/16/17 11:08 Last Admin: 05/16/17 10:21 Dose: 999 mls/hr eMAR Start Stop Document 05/16/17 10:21 SF (Rec: 05/16/17 10:33 SF [id number]) Intravenous Solution Start Date 05/16/17 Start Time 10:21 End Date 05/16/17 End time 11:22 Total Infusion Time 61 - Scribe Statement The provider has reviewed the documentation as recorded by the Mena Larsen Provider Scribe Attestation: All medical record entries made by the Scribama were at my direction and personally dictated by me. I have reviewed the chart and agree that the record accurately reflects my personal performance of the history, physical exam, medical decision making, and the department course for this patient. I have also personally directed, reviewed, and agree with the discharge instructions and disposition. Disposition/Present on Arrival - Present on Arrival Any Indicators Present on Arrival: No History of DVT/PE: No History of Uncontrolled Diabetes: No Urinary Catheter: No History of Decub. Ulcer: No History Surgical Site Infection Following: None - Disposition Have Diagnosis and Disposition been Completed?: Yes Diagnosis: Rapid atrial fibrillation, Dehydration Disposition: HOSPITALIZED Disposition Time: 09:55 Patient Plan: Observation Condition: FAIR
[2017-05-16 10:29] LABS: BASO # 0.03 K/mm3 (0.0-2.0); BASO % 0.4 % (0.0-3.0); EOS # 0.1 (0.0-0.7); EOS % 1.8 % (1.5-5.0); GRAN # 4.17 (1.4-6.5); GRAN % 59.3 % (50.0-68.0); HEMATOCRIT 33.8 % (36.0-48.0); LYMPH # 2.2 (1.2-3.4); MEAN CELL VOLUME 92.6 fl (80.0-105.0); MEAN CORPUSCULAR HEMOGLOBIN 30.1 pg (25.0-35.0); MEAN CORPUSCULAR HGB CONC 32.5 g/dl (31.0-37.0); MEAN PLATELET VOLUME 10.5 fl (7.0-11.0); MONO # 0.5 (0.1-0.6); MONO % 7.5 % (1.0-6.0); RED CELL DISTRIBUTION WIDTH 14.4 % (11.5-14.5)
[2017-05-16 10:42] LABS: ALB/GLOB RATIO 1.3 (1.1-1.8); BILIRUBIN,TOTAL 0.7 mg/dL (0.2-1.3); CALCIUM 9.2 mg/dL (8.4-10.5); MAGNESIUM 1.7 mg/dL (1.7-2.2); POTASSIUM 4.8 mmol/L (3.6-5.0); TOTAL PROTEIN 6.3 g/dL (5.8-8.3)
[2017-05-16 10:44] LABS: INR 1.44 (0.93-1.08)
[2017-05-16 10:45] LABS: PARTIAL THROMBOPLASTIN TIME 33.1 Seconds (25.1-36.5)
[2017-05-16] MEDS ORDERED: diltiaZEM IVPB 100mg in NS 100 ML IV PRN (11:44)
[2017-05-16] MEDS: Sodium Chloride 0.9% 1,000 ML IV SCH (12:03)
--- NOTE | 2017-05-16 12:38 | CT ---
PROCEDURE: CT Abdomen and Pelvis without intravenous contrast HISTORY: abdominal pain, diarrhea COMPARISON: None. TECHNIQUE: Without contrast.. Contrast Dose: Radiation dose: Total exam DLP = 1208 mGy-cm. This CT exam was performed using one or more of the following dose reduction techniques: Automated exposure control, adjustment of the mA and/or kV according to patient size, and/or use of iterative reconstruction technique. FINDINGS: LOWER THORAX: Unremarkable. LIVER: Unremarkable. No gross lesion or ductal dilatation. GALLBLADDER AND BILE DUCTS: Small stones are layered in the gallbladder PANCREAS: Unremarkable. No gross lesion or ductal dilatation. SPLEEN: Unremarkable. ADRENALS: Unremarkable. No mass. KIDNEYS AND URETERS: There is a nonobstructing 4 mm stone in lower pole of left kidney. Vascular calcifications are seen bilaterally. There are no ureteral stones. VASCULATURE: There is extensive calcification of the aorta. No evidence of aneurysm BOWEL: Unremarkable. No obstruction. No gross mural thickening. APPENDIX: Unremarkable. Normal appendix. PERITONEUM: Unremarkable. No free fluid. No free air. LYMPH NODES: Unremarkable. No enlarged lymph nodes. BLADDER: Unremarkable. REPRODUCTIVE: Unremarkable. BONES: There is disc degeneration at L4-5 and L5-S1. OTHER FINDINGS: None. IMPRESSION: No acute intra-abdominal findings
[2017-05-16] MEDS: diltiaZEM IVPB 100mg in NS 100 ML IV PRN ×2 (15:32→22:06)
[2017-05-16 16:30] VITALS: BMI 39.2
[2017-05-16] MEDS ORDERED: Influenza Vaccine 60 mcg/0.5 mL SYR (4YR UP) IM ONE (16:30)
[2017-05-16] MEDS ORDERED: Pneumococcal 23-Valent Vaccine IM ONE (16:30)
[2017-05-16] MEDS ORDERED: Insulin Detemir 100 units/ml Vial (Levemir) SC SCH (16:30)
[2017-05-16] MEDS ORDERED: Insulin Reg-LOW-Coverage SC SCH (16:30)
[2017-05-16] MEDS: Insulin Reg-LOW-Coverage SC SCH ×2 (18:38→23:00)
[2017-05-16] MEDS: Magnesium Oxide 400 mg Tab UD PO SCH (18:59)
--- NOTE | 2017-05-16 19:03 | CARD ---
APPROVED REPORT EKG Measurement Heart [id number] <Conclusion> Atrial fibrillation with rapid ventricular response Left axis deviation Anteroseptal infarct, age undetermined Marked ST abnormality, possible lateral subendocardial injury Abnormal ECG
[2017-05-16] MEDS: Albuterol-Ipratrop 3 mg / 0.5 (3 ml) UD INH SCH (20:22)
--- NOTE | 2017-05-16 22:00 | CP.PCM.PN ---
Subjective - Date & Time of Evaluation Date of Evaluation: 05/16/17 Time of Evaluation: 21:59 - Subjective Subjective: S:Patient was seen because she requested a sleeping pill. Has no other complaints now. Medical record was reviewed. O: Last Vital Signs 3 Temp 98.4 F 05/16/17 16:05 Pulse 87 05/16/17 22:06 Resp 16 05/16/17 16:05 BP 133/65 05/16/17 22:06 Pulse Ox 98 05/16/17 16:03 Awake, alert, not in distress. LUNGS: Normal breathing pattern. A:Adjustment insomnia. P:Ambien 5 mg PO x 1. Objective - Vital Signs/Intake and Output Vital Signs (last 24 hours): Temp Pulse Resp BP Pulse Ox 98.4 F 80 16 113/70 98 05/16/17 16:05 05/16/17 18:00 05/16/17 16:05 05/16/17 16:05 05/16/17 16:03 - Medications Medications: Current Medications Acetaminophen (Tylenol 325mg Tab) 650 mg PO Q8 PRN PRN Reason: Pain, Mild (1-3) Albuterol/Ipratropium (Duoneb 3 Mg/0.5 Mg (3 Ml) Ud) 3 ml INH Q6 [facility] Last Admin: 05/16/17 20:22 Dose: 3 ml Alprazolam (Xanax) 0.25 mg PO BID RASHID PRN Reason: Protocol Stop: 05/23/17 18:01 Last Admin: 05/16/17 18:59 Dose: 0.25 mg Amiodarone HCl (Cordarone) 200 mg PO DAILY RASHID Apixaban (Eliquis) 5 mg PO BID RASHID PRN Reason: Protocol Last Admin: 05/16/17 18:58 Dose: 5 mg Atorvastatin Calcium (Lipitor) 40 mg PO DIN [facility] Last Admin: 05/16/17 18:58 Dose: 40 mg Escitalopram Oxalate (Lexapro) 20 mg PO DAILY [facility] Folic Acid (Folic Acid) 1 mg PO DAILY [facility] Glipizide (Glucotrol Xl) 10 mg PO DAILY [facility] Sodium Chloride (Sodium Chloride 0.9%) 1,000 mls @ 80 mls/hr IV .[id number] [facility] Last Admin: 05/16/17 12:03 Dose: 80 mls/hr diltiaZEM IVPB 100mg in NS (Cardizem 100mg In Ns) 100 mls @ 10 mls/hr IV .Q10H PRN; Protocol; 10 MG/HR PRN Reason: TITRATE PER MD ORDER Last Admin: 05/16/17 15:32 Dose: 10 mg/hr, 10 mls/hr Insulin Human Regular (Humulin R Low) 0 units SC ACHS RASHID PRN Reason: Protocol Last Admin: 05/16/17 18:38 Dose: Not Given Magnesium Oxide (Mag-Ox) 400 mg PO BID [facility] Last Admin: 05/16/17 18:59 Dose: 400 mg Montelukast Sodium (Singulair) 10 mg PO HS [facility] Non-Formulary Medication (Nebivolol [Bystolic]) 2.5 mg PO DAILY [facility] Non-Formulary Medication (Tadalafil [Adcirca]) 20 mg PO HS [facility] Ondansetron HCl (Zofran Tab) 4 mg PO Q6 PRN PRN Reason: Nausea/Vomiting Pantoprazole Sodium (Protonix Ec Tab) 40 mg PO DAILY RASHID - Labs Labs: PT 16.0 SECONDS (9.4-12.5) H 05/16/17 10:10 INR 1.44 (0.93-1.08) H 05/16/17 10:10 APTT 33.1 Seconds (25.1-36.5) 05/16/17 10:10
[2017-05-16] MEDS: TADALAFIL 20 MG PO SCH (23:03)
--- NOTE | 2017-05-16 23:20 | HP ---
CHIEF COMPLAINT: Nausea, vomiting, diarrhea. Heart rate 180. HISTORY OF PRESENT ILLNESS: Ms. Brigitte Nance is a 71-year-old female who has past medical history with congestive heart failure, hypertension, diabetes mellitus, coronary artery disease, status post CABG, COPD, had recent cath done at [facility] with Dr. Horn, recent JORGE LUIS cardioversion by Dr. Tapia. Recommended for repeat ablation on amiodarone, Cardizem, has multiple admission, now came back in the emergency department complaining of nausea, vomiting or diarrhea for the past 3 days, got Zofran but still not feeling fine. Today, I heard that her heart rate was 180, I called her back to emergency room. The patient reported she compliant with medication, but fears that she has been vomiting it all up. She is still having generalized abdominal pain. The patient denies fever, chills, hematuria, hematochezia. PAST MEDICAL HISTORY: History of CABG, coronary artery disease, status post ablation, atrial fibrillation, congestive heart failure, hypertension, peripheral vascular disease, COPD, pneumonia, history of cellulitis of the legs, fall, anxiety, depression, open heart surgery. FAMILY HISTORY: Father and mother noncontributory. HABITS: No smoking now. History of former smoker. No drugs. No ethanol. ALLERGIES: THE PATIENT IS NOT ALLERGIC WITH ANY MEDICATIONS. HOME MEDICATIONS: Lipitor, Lexapro, Eliquis, folic acid, Singulair, Adcirca, glipizide, Levemir, metformin, Bystolic and Zofran. REVIEW OF SYSTEMS: The patient is seen and examined on the bedside in the emergency room, looking comfortable. No fever. No chills. No chest pain. Has history of nausea, vomiting, or diarrhea today. No hematuria or hematochezia. No dysuria. No back pain. No polyuria. PHYSICAL EXAMINATION: VITAL SIGNS: Temperature 98.4, pulse 155, respiratory rate 20, blood pressure 87/48 and pulse 100. HEENT: Head; normocephalic and atraumatic. Eyes; PERRLA. Extraocular muscles intact. Conjunctivae are clear. Nose is patent. Mucous membranes are moist. NECK: Supple. No carotid bruits, JVD, or thyromegaly. CHEST: Bilaterally symmetrical. HEART: S1 and S2 positive. LUNGS: Clear to auscultation. ABDOMEN: Soft. Bowel sounds present. No organomegaly. EXTREMITIES: No edema and no cyanosis. NEUROLOGIC: Awake and alert. Moving all 4 extremities. No focal deficits. LABORATORY DATA: White blood cells 7.0, hemoglobin 11.0, hematocrit 33.8 and platelets 292. Sodium 133, potassium 4.8, BUN 31, creatinine 1.3 and glucose 156. ASSESSMENT AND PLAN: Ms. Brigitte Nance is a 71-year-old lady with anemia, hyperglycemia, renal insufficiency, came with nausea, vomiting, diarrhea, with tachycardia, atrial fibrillation, rapid atrial fibrillation with dehydration, history of congestive heart failure, hypertension, diabetes mellitus, coronary artery disease, status post coronary artery bypass graft, history of recent transesophageal echocardiography, history of ablation. Gastrointestinal and deep venous thrombosis prophylaxis. Cardiology consult was called. Admitted the patient. Gastroenterology consult also called. We will followup. Marry Mooney MD MTDD
--- NOTE | 2017-05-17 00:45 | CON ---
DATE: 05/16/2017 This patient was seen and evaluated earlier today. REASON FOR CONSULTATION: Abdominal pain, nausea and diarrhea. HISTORY OF PRESENT ILLNESS: This is a 71-year-old patient with a past medical history of CHF, hypertension, diabetes mellitus, coronary artery disease status post bypass, was recently discharged from the hospital, was readmitted for nausea, vomiting, and diarrhea for 3 days. The patient has no bleeding per rectum. No further episodes of diarrhea since the patient came to the hospital. PAST MEDICAL HISTORY: Other past medical history is significant for COPD, congestive heart failure, open heart surgery, bypass graft. FAMILY HISTORY: Noncontributory. SOCIAL HISTORY: He was an ex-smoker. No alcohol. ALLERGIES: NO KNOWN DRUG ALLERGIES. REVIEW OF SYSTEMS: Positive as above. Other systems reviewed negative. PHYSICAL EXAMINATION GENERAL: The patient is lying on the bed, not in acute distress. VITAL SIGNS: Temperature 98.4, pulse of 87, O2 saturation is 100% on 2 liters . HEENT: Atraumatic. Anicteric. NECK: Supple. HEART: S1 and S2 heard. LUNGS: Bilateral air entry present. ABDOMEN: Soft. There is no mass palpable. There is mild tenderness present in the epigastric area and also left quadrant area on deep palpation. EXTREMITIES: No cyanosis, no clubbing. NEUROLOGIC: Alert and oriented. Moves all the extremities. LABORATORY DATA: Hemoglobin 11, hematocrit 33.8, WBC 7.0, platelets 232. IMPRESSION: This 71-year-old patient transferred from with complaints of nausea, vomiting and diarrhea. No further episode of diarrhea in the hospital. PLAN: 1. Would recommend stool for culture. 2. The patient is empirically started on antibiotics. 3. We encouraged to start on clear liquid diet. 4. We will slowly advance the diet. 5. We will continue to closely followup her care and suggest further management based on the clinical course. Delmy Schaeffer MD
--- NOTE | 2017-05-17 01:06 | CON ---
DATE: 05/16/2017 REASON FOR CONSULTATION AND FOLLOWUP: Atrial fibrillation with rapid ventricular rate, coronary artery disease, and admitted with nausea, vomiting, diarrhea, and dehydration on cardiac evaluation. BRIEF CLINICAL HISTORY: This is a 71-year-old female with past medical history significant for diabetes, pulmonary hypertension, pneumonia, and atrial fibrillation admitted to [facility] because of nausea, vomiting, and diarrhea. While the patient was in the ER found to be heart rate of 140 with rapid ventricular rate. Cardizem drip was start at 5 mL, now rate is controlled at 120. Denies any chest pain, denies any shortness of breath, and denies any palpitation. PAST MEDICAL HISTORY: Significant for diabetes, hypertension, hyperlipidemia, obesity, coronary artery disease, status post coronary artery bypass surgeries and catheterization by Dr. Cronin at [facility] in beginning of the year found to have patent graft, history of radiofrequency ablation by Dr. Horn at [facility]. On last admission, the patient was atrial fibrillation with a rapid ventricular rate, T-cardioversion done, the patient is converted to normal sinus, went to long-term without any amiodarone slipped back into the atrial fibrillation and forth. Last night, the patient on amiodarone and discharged on amiodarone. Previous cardiac workup as follows: The patient had a cardiac catheterization most recently by Dr. Cronin's [facility] at [facility] in the beginning of year and was told of patent graft, history of open surgery in 1999, history of radiofrequency ablation by Dr. Horn at [facility] failed, history of T-cardioversion on 04/19/2017. At that time echo revealed trace aortic regurgitation with ejection fraction of 35% to 40%, biatrial enlargement, [id number] tricuspid regurgitation, RV systolic pressure of 54 mmHg, 200 joules cardioversion was given, and the patient converted to normal sinus at that time dated 04/19/2017. CURRENT MEDICATIONS: The patient is taking at long-term Cardizem CD 120 mg daily, Adcirca, glipizide, folic acid, atorvastatin, Eliquis, and amiodarone. REVIEW OF SYSTEMS: As per HPI. PHYSICAL EXAMINATION: As follows: VITAL SIGNS: Temperature is afebrile, heart rate is 115, and blood pressure is 125/69. HEENT: PERRLA intact. NECK: Supple. No carotid bruits or thyromegaly. CHEST: Clear to auscultation. HEART: S1 and S2. Regular. ABDOMEN: Soft. EXTREMITIES: Clubbing and cyanosis negative. LABORATORY DATA: Blood workup as follows: WBC of 7, hemoglobin of 11, hematocrit of 33.8, and platelet count of 292. Chemistry shows sodium of 138, potassium of 4.0, chloride of 101, carbon dioxide of 29, anion gap of 11, BUN of 31, and creatinine of 1.3. IMPRESSION: Atrial fibrillation with rapid ventricular rate, diarrhea, vomiting, history of coronary artery disease, history of coronary artery bypass grafting in 1999, history of recently catheterization by Dr. Cronin, patent graft, history of radiofrequency ablation, obesity, diabetes, hypertension, hyperlipidemia, fall, status post fracture, right ankle, status post left rotator cuff injury. RECOMMENDATIONS: We will start Cardizem, start Eliquis, and continue amiodarone. In addition, the patient needs a GI workup. We will follow with you. Thank you Dr. Mooney for providing us the opportunity in taking care of the patient, Brigitte Nance. Raphael Tapia MD
[2017-05-17] MEDS: Albuterol-Ipratrop 3 mg / 0.5 (3 ml) UD INH SCH ×5 (01:47→23:22)
[2017-05-17] MEDS: Sodium Chloride 0.9% 1,000 ML IV SCH ×2 (02:01→16:13)
[2017-05-17 04:31] LABS: URINE BILIRUBIN NEGATIVE (NEGATIVE); URINE BLOOD TRACE-INTACT (NEGATIVE); URINE GLUCOSE (UA) NEGATIVE (NEGATIVE); URINE KETONE NEGATIVE (NEGATIVE); URINE LEUKOCYTE ESTERASE SMALL Leu/uL (NEGATIVE); URINE PROTEIN NEGATIVE mg/dL (<30 mg/dL); URINE UROBILINOGEN 0.2 E.U./dL (<1 E.U./dL)
[2017-05-17 04:34] LABS: URINE APPEARANCE SL CLOUDY (CLEAR); URINE COLOR YELLOW (YELLOW)
[2017-05-17 04:36] LABS: URINE EPITHELIAL CELLS 0 - 2 /hpf (0-5); URINE RBC 0 - 2 /hpf (0-2)
[2017-05-17 04:37] LABS: URINE BACTERIA MANY (NEG)
[2017-05-17 07:21] LABS: ALB/GLOB RATIO 1.2 (1.1-1.8); ALKALINE PHOSPHATASE 90 U/L (38-126); ALT/SGPT 37 U/L (7-56); AST/SGOT 20 U/L (14-36); BILIRUBIN,TOTAL 0.6 mg/dL (0.2-1.3); BLOOD UREA NITROGEN 17 mg/dL (7-21); CALCIUM 8.7 mg/dL (8.4-10.5); CARBON DIOXIDE 27 mmol/L (21-33); CHLORIDE 106 mmol/L (98-107); GFR AFRICAN-AMERICAN > 60; GLUCOSE,RANDOM 160 mg/dL (70-110); MAGNESIUM 1.6 mg/dL (1.7-2.2); PHOSPHOROUS 3.4 mg/dL (2.5-4.5); POTASSIUM 4.1 mmol/L (3.6-5.0); SODIUM 140 mmol/L (132-148); TOTAL PROTEIN 5.4 g/dL (5.8-8.3)
[2017-05-17 07:36] LABS: BASO # 0.03 K/mm3 (0.0-2.0); BASO % 0.6 % (0.0-3.0); EOS # 0.6 (0.0-0.7); EOS % 10.5 % (1.5-5.0); GRAN # 2.47 (1.4-6.5); GRAN % 45.2 % (50.0-68.0); LYMPH # 1.9 (1.2-3.4); LYMPH % 34.7 % (22.0-35.0); MEAN CELL VOLUME 92.3 fl (80.0-105.0); MEAN CORPUSCULAR HEMOGLOBIN 30.5 pg (25.0-35.0); MEAN PLATELET VOLUME 10.7 fl (7.0-11.0); MONO # 0.5 (0.1-0.6); RED CELL DISTRIBUTION WIDTH 14.3 % (11.5-14.5); WHITE BLOOD COUNT 5.5 10^3/ul (4.5-11.0)
[2017-05-17] MEDS: Insulin Reg-LOW-Coverage SC SCH ×4 (08:47→22:37)
[2017-05-17] MEDS: diltiaZEM IVPB 100mg in NS 100 ML IV PRN (08:51)
[2017-05-17] MEDS: Pantoprazole 40 mg EC Tab PO SCH (10:56)
[2017-05-17] MEDS: Magnesium Oxide 400 mg Tab UD PO SCH ×2 (10:56→17:01)
[2017-05-17] MEDS: GlipiZIDE 10 mg SR Tab PO SCH (10:56)
[2017-05-17] MEDS: NEBIVOLOL 2.5 MG PO SCH (11:09)
--- NOTE | 2017-05-17 13:21 | PN ---
DATE: 05/17/2017 REASON FOR CONSULTATION AND FOLLOWUP: Atrial fibrillation with rapid rate on IV Cardizem, admitted with vomiting, diarrhea, dehydration, and cardiac evaluation. SUBJECTIVE: Denies any chest pain, shortness of breath, or any palpitations. Feels a lot better. Denies any further episode of diarrhea or vomiting. PHYSICAL EXAMINATION: VITAL SIGNS: Temperature afebrile, heart rate 106, blood pressure 107/58. HEENT: PERRLA. Extraocular muscles are intact. NECK: Supple. No carotid bruit or thyromegaly. CHEST: Clear to auscultation. HEART: S1 and S2 regular. ABDOMEN: Soft. EXTREMITIES: Clubbing and cyanosis negative. LABORATORY DATA: Blood workup as follows; WBC 5.5, hemoglobin 9.9, hematocrit 30.0, platelet count 269. Chemistry shows sodium 140, potassium 4.0, carbon dioxide 27, anion gap of 11, BUN 17, and creatinine 1.0. TSH 2.3. IMPRESSION: Atrial fibrillation with rapid ventricular rate now reasonable control on intravenous Cardizem, diabetes, hypertension, hyperlipidemia, coronary artery disease, status post coronary artery bypass graft, status post recently cardia catheterization at [facility], patent graft, history of atrial fibrillation status post radiofrequency ablation reversed back to atrial fibrillation, cardiomyopathy with ejection fraction 35% to 40%, status post transesophageal echocardiography cardioversion, paroxysmal atrial fibrillation converted back again to atrial fibrillation. RECOMMENDATION: Change Cardizem to p.o., continue amiodarone 200 mg daily, continue Eliquis, we will change Cardizem to p.o., possible discharge once the heart rate is stable and when the diarrhea is controlled. Raphael Tapia MD
--- NOTE | 2017-05-17 14:57 | PN ---
DATE: SUBJECTIVE: The patient is a 71-year-old female. The patient is seen and examined at the bedside. Looking comfortable. No nausea, vomiting or diarrhea. No abdominal pain. Want to see Dr. Cabrera. No chest pain. Shortness of breath is better. Coughing is better. No palpitation. PHYSICAL EXAMINATION: VITAL SIGNS: Temperature 98.6, heart rate 106, blood pressure 107/58, and respiratory rate is 20. HEENT: Head is normocephalic and atraumatic. Eyes, PERRLA. Extraocular muscles intact. Conjunctivae are clear. Nose is patent. Mucous membranes moist. NECK: Supple. No carotid bruits. No JVD or thyromegaly. CHEST: Bilaterally symmetrical. HEART: S1 and S2 positive. LUNGS: Clear to auscultation. ABDOMEN: Soft. Bowel sounds present. No organomegaly. EXTREMITIES: No edema. No cyanosis. NEUROLOGICAL: The patient is awake and alert. Moving all 4 extremities. No focal deficit. LABORATORY DATA: White blood cells 5.5, hemoglobin 9.9, hematocrit is 30.0, and platelets 269. Sodium is 140, potassium is 4.0, BUN is 17, and creatinine is 1.0. TSH is 2.3. ASSESSMENT AND PLAN: Ms. Brigitte Nance is a 71-year-old lady with atrial fibrillation with rapid ventricular rate, now reasonably controlled on intravenous Cardizem, uncontrolled diabetes mellitus, insulin requiring, hypertension plus getting up and down, hypercholesterolemia, coronary artery disease, status post coronary artery bypass graft status post recent cardiac catheterization at [facility]. The patient's graft as per the patient's it professional. History of radiofrequency ablation, reversed back to atrial fibrillation, cardiomyopathy with ejection fraction of 35% to 40%. Status post transesophageal echocardiography, cardioversion, paroxysmal atrial fibrillation converted back to atrial fibrillation as per Dr. Tapia back and forth, he is minding to change Cardizem p.o., continue amiodarone, continue Eliquis. He changed Cardizem to p.o. possibly wait for heart rate. The patient recalled consult with Dr. Cabrera for feet care. The patient has diabetic ulcers. Review Dr. Schaeffer's notes also. The patient is having off and on gastroenteritis or diarrhea. The patient is started on antibiotics as per Dr. Schaeffer. Gastrointestinal and deep venous thrombosis prophylaxis. Repeat labs. We will follow up. Marry Mooney MD
[2017-05-17] MEDS: Insulin Detemir 100 units/ml Vial (Levemir) SC SCH (22:28)
[2017-05-18] MEDS: Sodium Chloride 0.9% 1,000 ML IV SCH ×3 (02:15→20:19)
[2017-05-18] MEDS: TADALAFIL 20 MG PO SCH ×2 (02:27→22:05)
[2017-05-18 07:10] LABS: HEMATOCRIT 29.8 % (36.0-48.0); MEAN CELL VOLUME 92.8 fl (80.0-105.0); MEAN CORPUSCULAR HEMOGLOBIN 29.9 pg (25.0-35.0); MEAN CORPUSCULAR HGB CONC 32.2 g/dl (31.0-37.0); MEAN PLATELET VOLUME 10.9 fl (7.0-11.0); RED CELL DISTRIBUTION WIDTH 14.4 % (11.5-14.5); WHITE BLOOD COUNT 5.7 10^3/ul (4.5-11.0)
[2017-05-18] MEDS: Albuterol-Ipratrop 3 mg / 0.5 (3 ml) UD INH SCH ×4 (07:41→23:10)
--- NOTE | 2017-05-18 07:46 | CON ---
PULMONARY CONSULTATION DATE: 05/17/2017 REASON FOR CONSULTATION: Recurrent atrial fibrillation with rapid ventricular response, chronic lung disease, may have sleep apnea syndrome. HISTORY OF PRESENT ILLNESS: This is a 71-year-old female well known to me from previous admission, known to have a cardiomyopathy, heart failure, hypertension, diabetes, coronary artery disease, history of coronary artery bypass surgery, recently had cardioversion for atrial fibrillation, last admission was very similar with rapid atrial fibrillation, recommended cardioversion and amiodarone was started with Cardizem. She was sent to subacute facility where she have nausea, vomiting, and some diarrhea, next thing she know she was in atrial fibrillation and came to Emergency Room. Presently feels better. She also have a loud snoring, probably suspected sleep apnea syndrome. PAST MEDICAL HISTORY: As per history of present illness. FAMILY HISTORY: No significant cardiopulmonary disease reported. SOCIAL HISTORY: She is former smoker. Denies any alcohol use. ALLERGIES: UNKNOWN. MEDICATION: She is on Ambien 5 mg at bedtime p.r.n., Cardizem 30 mg four times a day, also Cardizem CD 120 mg daily, amiodarone 200 mg daily, DuoNeb q. 6 hours, Eliquis 5 mg twice a day, Flagyl 250 mg four times a day, folic acid 1 mg daily, Glucotrol XL 10 mg daily insulin coverage, Levemir 50 units subcutaneous q. 12 hours, Lexapro 20 mg daily, Lipitor 40 mg daily, mag oxide 400 mg twice a day, Bystolic 2.5 mg daily, Protonix 40 mg daily, Singulair 10 mg daily, IV fluid normal saline 80 mL per hour, Adcirca 20 mg at bedtime, Tylenol p.r.n. basis, Xanax 0.25 mg twice a day, Zofran p.r.n. basis. REVIEW OF SYSTEMS: No headache, no rhinitis. Admit to have snoring, daytime sleepy. No chest pain, nausea, vomiting or diarrhea. No leg pain or leg swelling. PHYSICAL EXAMINATION: GENERAL: Lying in the bed, no acute distress. VITAL SIGNS: Temperature is 98, heart is 95, respiratory rate is 20, blood pressure 142/78, pulse 97% on nasal cannula. HEENT: Moist mucous membrane. Crowded airway. Mallampati score is IV. NECK: Supple. No JVD. LUNGS: Has a scattered rhonchi. HEART: Irregularly irregular. ABDOMEN: Soft, nontender, no organomegaly. EXTREMITIES: No edema. NEUROLOGIC: Awake, alert, follows simple commands. LABORATORY DATA: Shows hemoglobin 9.9, hematocrit 30.0, WBC 5.5, platelet count is 264. INR 1.44. PTT is 33. Sodium 140, potassium 4.1, chloride 106, bicarbonate 27, BUN 17, creatinine 1.0, glucose is 154, calcium is 8.7, phosphorus is 3.4, magnesium 1.6, AST 20, ALT 37, alkaline phosphatase is 90. Albumin is 2.9. TSH 2.30. Stool for C. diff is negative. Had a CAT scan of the abdomen and pelvis done on admission, which shows no intra-abdominal findings. IMPRESSION AND PLAN: Recurrent atrial fibrillation with rapid ventricular response, failed cardioversion, may have a sleep apnea syndrome, diabetes, hypertension, hyperlipidemia, coronary artery disease, history of coronary artery bypass surgery, cardiomyopathy, left ventricular ejection fraction with 35%. I had a long discussion with the patient. Spoke about recurrent atrial fibrillation in relation to sleep apnea. We will place her on CPAP 8-cm with 30% oxygen while sleeping until the sleep study done. Continue anticoagulation. Continue amiodarone and beta blockers. Thank you and we will follow with you Raphael Villalba MD
[2017-05-18 08:07] LABS: BLOOD UREA NITROGEN 12 mg/dL (7-21); CALCIUM 8.6 mg/dL (8.4-10.5); CARBON DIOXIDE 26 mmol/L (21-33); CHLORIDE 107 mmol/L (98-107); GFR AFRICAN-AMERICAN > 60; GLUCOSE,RANDOM 215 mg/dL (70-110); POTASSIUM 4.4 mmol/L (3.6-5.0); SODIUM 139 mmol/L (132-148)
[2017-05-18] MEDS: Insulin Reg-LOW-Coverage SC SCH ×4 (08:13→22:00)
[2017-05-18] MEDS: diltiaZEM 120 mg/24 Hours CD Cap PO SCH ×2 (08:19→10:22)
--- NOTE | 2017-05-18 08:51 | PN ---
SUBJECTIVE: This patient was seen and evaluated earlier today, still complains of some loose bowel movements. No complaints of any abdominal pain or vomiting. PHYSICAL EXAMINATION VITAL SIGNS: Temperature is afebrile, blood pressure 142/78, respirations 20 and O2 saturation 97%. HEENT: Atraumatic and anicteric. NECK: Supple. HEART: S1 and S2 heard. LUNGS: Bilateral air entry present. ABDOMEN: Soft. There is no mass palpable. No tenderness. EXTREMITIES: No cyanosis. No clubbing. NEUROLOGIC: Alert and oriented. Moves all extremities. LABORATORY DATA: Hemoglobin 9.9. IMPRESSION: This is a 71-year-old patient who was recently in the hospital because of diarrhea, vomiting and abdominal pain, found to have atrial fibrillation with rapid ventricular response, which is now controlled. The patient has still loose bowel movements. Stool for C. diff was negative. The patient has been treated with the antibiotics previously for urinary tract infection, and also I would recommend to rule out C. diff in this particular patient even though the C. diff toxin is negative. The patient had a cardiac catheterization done in the [facility]. I would consider advancing the diet and also will consider starting the patient on Flagyl empirically 250 mg q.i.d. Thank you very much for allowing me to participate in the care of the patient. Delmy Schaeffer MD
[2017-05-18 09:11] LABS: IRON 68 ug/dL (45-180)
[2017-05-18] MEDS: Pantoprazole 40 mg EC Tab PO SCH (09:59)
[2017-05-18] MEDS: Magnesium Oxide 400 mg Tab UD PO SCH ×2 (10:00→17:38)
[2017-05-18] MEDS: Insulin Detemir 100 units/ml Vial (Levemir) SC SCH ×2 (10:01→22:04)
[2017-05-18] MEDS: GlipiZIDE 10 mg SR Tab PO SCH (10:01)
[2017-05-18] MEDS: NEBIVOLOL 2.5 MG PO SCH (10:02)
--- NOTE | 2017-05-18 11:39 | CP.PCM.CON ---
History of Present Illness - History of Present Illness History of Present Illness: 71 year old female with PMHx of CHF, hypertension, and diabetes, with hx of CAD s/p cabg, with recent cath [place] [facility] [place] recent JORGE LUIS with cardioversion seen and evaluated at bedside for right foot pain. Patient states that she injured herself on the right foot in January and sustained a fracture. Patient states that she was seen by her access database developer Dr. Cabrera in his office who has been treating her for it. Patient states that she came to the hospital due to the rapid heart beats. Patient denies of any pain in her right foot today and states that she is only tender when someone presses it hard. Patient states that she was given a CAM boot to wear and has been wearing that at all times. Patient denies of any other pedal complains at this time. PMHx: CHF, hypertension, and diabetes, with hx of CAD s/p cabg, with recent cath [place] [facility] [place], recent JORGE LUIS with cardioversion PSHx: Heart surgery Allergies: N.K.D.A Review of Systems - EENT Eyes: As Per HPI Past Patient History - Infectious Disease Hx of Infectious Diseases: None - Tetanus Immunizations Tetanus Immunization: Unknown - Past Social History Smoking Status: Never Smoked - CARDIAC Hx Cardiac Disorders: Yes (CABG,OPEN HEART,CAD S/P ABLATION.) Hx Cardia Arrhythmia: Yes (afib) Hx Circulatory Problems: Yes Hx Congestive Heart Failure: Yes Hx Hypertension: Yes Hx Peripheral Edema: Yes (rle +1 pitting lle +2 pitting) Other/Comment: cabg at i 5 vessels developed a blood clot in her heart had ablation - PULMONARY Hx Respiratory Disorders: Yes (denies pe, has home o2) Hx Chronic Obstructive Pulmonary Disease (COPD): Yes Hx Pneumonia: Yes - NEUROLOGICAL Hx Neurological Disorder: No - HEENT Hx HEENT Problems: No - RENAL Hx Chronic Kidney Disease: No - ENDOCRINE/METABOLIC Hx Endocrine Disorders: Yes Hx Diabetes Mellitus Type 1: Yes - HEMATOLOGICAL/ONCOLOGICAL Hx Blood Disorders: No - INTEGUMENTARY Hx Dermatological Problems: Yes Other/Comment: left lower leg red and +2 edema with dry flakey skin to foot and lower leg, right lower extremity less red +3 pitting edema to foot with dry flakey skin. Pt stated" My legs have been like this since after my open heart sx".pt now wearing a boot/splint due to r ft fx was in [facility] for rehab, r forearm fading skin discoloration due to bloodwork and iv attempts as per pt - MUSCULOSKELETAL/RHEUMATOLOGICAL Hx Musculoskeletal Disorders: Yes (ROTATOR CUFF OF L SHOULDER) Hx Falls: Yes (fell 01/2017) Hx Fractures: Yes (RIGHT FOOT FX WITH SPLINT) Hx Osteoarthritis: Yes Hx Osteoporosis: Yes Hx Unsteady Gait: Yes (WALKER WITH ASSIST) - GASTROINTESTINAL Hx Gastrointestinal Disorders: Yes (obese) - GENITOURINARY/GYNECOLOGICAL Hx Genitourinary Disorders: Yes (C/S X 1) - PSYCHIATRIC Hx Psychophysiologic Disorder: Yes Hx Anxiety: Yes Hx Depression: Yes - SURGICAL HISTORY Hx Surgeries: Yes (JORGE LUIS WITH CARDIOVERSION,L ROTATOR CUFF SX) Hx Open Heart Surgery: Yes Other/Comment: rt foot fracture + splint - ANESTHESIA Hx Anesthesia Reactions: No Meds Allergies/Adverse Reactions: Allergies Allergy/AdvReac Type Severity Reaction Status Date / Time No Known Allergies Allergy Verified 05/07/17 13:54 - Medications Medications: Current Medications Acetaminophen (Tylenol 325mg Tab) 650 mg PO Q8 PRN PRN Reason: Pain, Mild (1-3) Albuterol/Ipratropium (Duoneb 3 Mg/0.5 Mg (3 Ml) Ud) 3 ml INH Q6 [facility] Last Admin: 05/18/17 07:41 Dose: 3 ml Alprazolam (Xanax) 0.25 mg PO BID [facility] PRN Reason: Protocol Stop: 05/23/17 18:01 Last Admin: 05/18/17 10:00 Dose: 0.25 mg Amiodarone HCl (Cordarone) 200 mg PO DAILY [facility] Last Admin: 05/18/17 09:59 Dose: 200 mg Apixaban (Eliquis) 5 mg PO BID [facility] PRN Reason: Protocol Last Admin: 05/18/17 10:00 Dose: 5 mg Atorvastatin Calcium (Lipitor) 40 mg PO DIN [facility] Last Admin: 05/17/17 17:01 Dose: 40 mg Diltiazem HCl (Cardizem Cd) 120 mg PO DAILY [facility] Last Admin: 05/18/17 10:22 Dose: Not Given Escitalopram Oxalate (Lexapro) 20 mg PO DAILY [facility] Last Admin: 05/18/17 09:59 Dose: 20 mg Folic Acid (Folic Acid) 1 mg PO DAILY [facility] Last Admin: 05/18/17 10:00 Dose: 1 mg Glipizide (Glucotrol Xl) 10 mg PO DAILY [facility] Last Admin: 05/18/17 10:01 Dose: 10 mg Sodium Chloride (Sodium Chloride 0.9%) 1,000 mls @ 80 mls/hr IV .[id number] [facility] Last Admin: 05/18/17 05:09 Dose: 80 mls/hr Insulin Detemir (Levemir) 15 unit SC Q12 [facility] Last Admin: 05/18/17 10:01 Dose: 15 unit Insulin Human Regular (Humulin R Low) 0 units SC ACHS [facility] PRN Reason: Protocol Last Admin: 05/18/17 08:13 Dose: 2 units Magnesium Oxide (Mag-Ox) 400 mg PO BID [facility] Last Admin: 05/18/17 10:00 Dose: 400 mg Metronidazole (Flagyl) 250 mg PO QID [facility] PRN Reason: Protocol Last Admin: 05/18/17 10:00 Dose: 250 mg Montelukast Sodium (Singulair) 10 mg PO HS [facility] Last Admin: 05/17/17 22:27 Dose: 10 mg Non-Formulary Medication (Nebivolol [Bystolic]) 2.5 mg PO DAILY [facility] Last Admin: 05/18/17 10:02 Dose: Not Given Non-Formulary Medication (Tadalafil [Adcirca]) 20 mg PO HS [facility] Last Admin: 05/18/17 02:27 Dose: Not Given Ondansetron HCl (Zofran Tab) 4 mg PO Q6 PRN PRN Reason: Nausea/Vomiting Pantoprazole Sodium (Protonix Ec Tab) 40 mg PO DAILY [facility] Last Admin: 05/18/17 09:59 Dose: 40 mg Zolpidem Tartrate (Ambien) 5 mg PO HS PRN; Protocol PRN Reason: Insomnia Last Admin: 05/17/17 22:26 Dose: 5 mg Physical Exam - Constitutional Appears: Well, Non-toxic, No Acute Distress - Extremities Exam Additional comments: Bilateral LE exam: VASC: DP/PT pulses are very faintly palpable due to 2+ pitting edema, Cap refill time: < 3 sec to all digits, Temp gradient: warm to cool from proximal to distal. 2+ pitting edema noted to bilateral distal LE DERM: no open lesions, no interdigital maceration, localized chronic erythema on the distal anterior leg on the left, no clinical suspicion of active infection NEURO: protective sensation grossly intact ORTHO: diffuse tenderness on palpation of the dorsum of the right foot, active and passive ROM at the ankle joint, and MTPJ intact with no pain, gapping between the 2nd and 3rd digit noted, MMT: 5/5 during inversion, eversion, plantarflexion and dorsiflexion - Neurological Exam Neurological exam: Alert, Oriented x3 - Psychiatric Exam Psychiatric exam: Normal Affect, Normal Mood Results - Vital Signs Recent Vital Signs: Last Vital Signs Temp 97.9 F 05/18/17 06:00 Pulse 148 H 05/18/17 10:00 Resp 19 05/18/17 06:00 BP 133/56 L 05/18/17 09:59 Pulse Ox 99 05/18/17 06:00 - Labs Result Diagrams: 05/18/17 06:50 05/18/17 06:50 Labs: Laboratory Results - last 24 hr 05/16/17 05/17/17 05/17/17 21:52 08:17 11:18 WBC RBC Hgb Hct MCV MCH MCHC RDW Plt Count MPV Sodium Potassium Chloride Carbon Dioxide Anion Gap BUN Creatinine Est GFR ( Amer) Est GFR (Non-Af Amer) POC Glucose (mg/dL) 131 H 189 H 311 H Random Glucose Calcium Iron TIBC % Saturation 05/17/17 05/17/17 05/18/17 16:35 21:29 06:50 WBC 5.7 RBC 3.21 L Hgb 9.6 L Hct 29.8 L MCV 92.8 MCH 29.9 MCHC 32.2 RDW 14.4 Plt Count 233 MPV 10.9 Sodium Potassium Chloride Carbon Dioxide Anion Gap BUN Creatinine Est GFR ( Amer) Est GFR (Non-Af Amer) POC Glucose (mg/dL) 269 H 259 H Random Glucose Calcium Iron TIBC % Saturation 05/18/17 05/18/17 06:50 08:50 WBC RBC Hgb Hct MCV MCH MCHC RDW Plt Count MPV Sodium 139 Potassium 4.4 Chloride 107 Carbon Dioxide 26 Anion Gap 10 BUN 12 Creatinine 0.9 Est GFR ( Amer) > 60 Est GFR (Non-Af Amer) > 60 POC Glucose (mg/dL) Random Glucose 215 H Calcium 8.6 Iron 68 TIBC 204 L % Saturation 33 Assessment & Plan - Assessment and Plan (Free Text) Assessment: 71 y/o female seen and evaluated 3 months s/p right foot possible metatarsal fracture Plan: Patient seen and evaluated at bedside Patient discussed in details with attending Dr. Cabrera Labs, vitals and charts reviewed: afebrile, WBC @ 5.7 today X-rays of the right foot ordered Patient placed in CAM boot and educated to remain in the boot while weightbearing Thank you for the podiatry consult - podiatry to follow patient while in house - Date & Time Date: 05/18/17 Time: 11:49
[2017-05-18 12:57] LABS: FOLATE > 20.0 ng/mL
--- NOTE | 2017-05-18 13:23 | CP.PCM.PN ---
<Mery Nance - Last Filed: 05/18/17 13:22> Subjective - Date & Time of Evaluation Date of Evaluation: 05/18/17 Time of Evaluation: 10:15 - Subjective Subjective: S&E at bedside, this am, chart reviewed, no diarrhea had soft BM yesterday, no bleeding, no N/V or abdominal pain. tolerating oral intake. Nop SOB or chest pain. No acute overnight events. Objective - Vital Signs/Intake and Output Vital Signs (last 24 hours): Temp Pulse Resp BP Pulse Ox 98.6 F 148 H 20 160/81 H 99 05/18/17 12:00 05/18/17 10:00 05/18/17 12:00 05/18/17 12:00 05/18/17 06:00 Intake and Output: 05/18/17 05/18/17 06:59 18:59 Intake Total 480 Output Total 1500 Balance -1020 - Medications Medications: Current Medications Acetaminophen (Tylenol 325mg Tab) 650 mg PO Q8 PRN PRN Reason: Pain, Mild (1-3) Albuterol/Ipratropium (Duoneb 3 Mg/0.5 Mg (3 Ml) Ud) 3 ml INH Q6 [facility] Last Admin: 05/18/17 07:41 Dose: 3 ml Alprazolam (Xanax) 0.25 mg PO BID [facility] PRN Reason: Protocol Stop: 05/23/17 18:01 Last Admin: 05/18/17 10:00 Dose: 0.25 mg Amiodarone HCl (Cordarone) 200 mg PO DAILY [facility] Last Admin: 05/18/17 09:59 Dose: 200 mg Apixaban (Eliquis) 5 mg PO BID [facility] PRN Reason: Protocol Last Admin: 05/18/17 10:00 Dose: 5 mg Atenolol (Tenormin) 25 mg PO DAILY [facility] Atorvastatin Calcium (Lipitor) 40 mg PO DIN [facility] Last Admin: 05/17/17 17:01 Dose: 40 mg Diltiazem HCl (Cardizem Cd) 120 mg PO DAILY [facility] Last Admin: 05/18/17 10:22 Dose: Not Given Escitalopram Oxalate (Lexapro) 20 mg PO DAILY [facility] Last Admin: 05/18/17 09:59 Dose: 20 mg Folic Acid (Folic Acid) 1 mg PO DAILY [facility] Last Admin: 05/18/17 10:00 Dose: 1 mg Glipizide (Glucotrol Xl) 10 mg PO DAILY [facility] Last Admin: 05/18/17 10:01 Dose: 10 mg Sodium Chloride (Sodium Chloride 0.9%) 1,000 mls @ 80 mls/hr IV .[id number] [facility] Last Admin: 05/18/17 05:09 Dose: 80 mls/hr Ceftriaxone Sodium (Rocephin 1 Gram Ivpb (D5w)) 1 gm in 100 mls @ 100 mls/hr IVPB DAILY [facility] PRN Reason: Protocol Insulin Detemir (Levemir) 15 unit SC Q12 [facility] Last Admin: 05/18/17 10:01 Dose: 15 unit Insulin Human Regular (Humulin R Low) 0 units SC ACHS [facility] PRN Reason: Protocol Last Admin: 05/18/17 12:07 Dose: 4 units Magnesium Oxide (Mag-Ox) 400 mg PO BID [facility] Last Admin: 05/18/17 10:00 Dose: 400 mg Metronidazole (Flagyl) 250 mg PO QID [facility] PRN Reason: Protocol Last Admin: 05/18/17 10:00 Dose: 250 mg Montelukast Sodium (Singulair) 10 mg PO HS [facility] Last Admin: 05/17/17 22:27 Dose: 10 mg Non-Formulary Medication (Tadalafil [Adcirca]) 20 mg PO HS [facility] Last Admin: 05/18/17 02:27 Dose: Not Given Ondansetron HCl (Zofran Tab) 4 mg PO Q6 PRN PRN Reason: Nausea/Vomiting Pantoprazole Sodium (Protonix Ec Tab) 40 mg PO DAILY [facility] Last Admin: 05/18/17 09:59 Dose: 40 mg Zolpidem Tartrate (Ambien) 5 mg PO HS PRN; Protocol PRN Reason: Insomnia Last Admin: 05/17/17 22:26 Dose: 5 mg - Labs Labs: 05/18/17 06:50 05/18/17 06:50 PT 16.0 SECONDS (9.4-12.5) H 05/16/17 10:10 INR 1.44 (0.93-1.08) H 05/16/17 10:10 APTT 33.1 Seconds (25.1-36.5) 05/16/17 10:10 - Constitutional Appears: No Acute Distress - Head Exam Head Exam: NORMOCEPHALIC - Eye Exam Eye Exam: Normal appearance. absent: Scleral icterus - ENT Exam ENT Exam: Mucous Membranes Moist - Neck Exam Neck Exam: Normal Inspection - Respiratory Exam Respiratory Exam: NORMAL BREATHING PATTERN. absent: Respiratory Distress - Cardiovascular Exam Cardiovascular Exam: +S1, +S2 - GI/Abdominal Exam GI & Abdominal Exam: Soft, Normal Bowel Sounds. absent: Guarding, Tenderness, Rebound - Extremities Exam Extremities Exam: absent: Calf Tenderness - Neurological Exam Neurological Exam: Alert, Awake, Oriented x3 - Skin Skin Exam: Dry, Warm Assessment and Plan - Assessment and Plan (Free Text) Assessment: ASSESSMENT: Atrial Fibrillation,w/ RVR Diarrhea, may be antibiotics induced, h/o UTI w/ antibiotic treatment, cdiff negative UTI DM Constipation PLAN: advance diet to mod carb/heart healthy/low residual soft on Amiodarone on Eliquis continue Flagyl on ceftriaxone Seen and discussed w/ Dr. Schaeffer. <Delmy Schaeffer V - Last Filed: 05/18/17 22:30> Objective - Vital Signs/Intake and Output Vital Signs (last 24 hours): Temp Pulse Resp BP Pulse Ox 98.3 F 112 H 20 111/69 97 05/18/17 20:30 05/18/17 21:24 05/18/17 20:30 05/18/17 20:48 05/18/17 20:30 Intake and Output: 05/18/17 05/19/17 18:59 06:59 Intake Total 600 Output Total 825 Balance -225 - Medications Medications: Current Medications Acetaminophen (Tylenol 325mg Tab) 650 mg PO Q8 PRN PRN Reason: Pain, Mild (1-3) Albuterol/Ipratropium (Duoneb 3 Mg/0.5 Mg (3 Ml) Ud) 3 ml INH Q6 [facility] Last Admin: 05/18/17 19:42 Dose: 3 ml Alprazolam (Xanax) 0.25 mg PO BID [facility] PRN Reason: Protocol Stop: 05/23/17 18:01 Last Admin: 05/18/17 17:38 Dose: 0.25 mg Amiodarone HCl (Cordarone) 200 mg PO DAILY [facility] Last Admin: 05/18/17 09:59 Dose: 200 mg Apixaban (Eliquis) 5 mg PO BID [facility] PRN Reason: Protocol Last Admin: 05/18/17 17:38 Dose: 5 mg Atenolol (Tenormin) 25 mg PO DAILY [facility] Last Admin: 05/18/17 14:21 Dose: 25 mg Atorvastatin Calcium (Lipitor) 40 mg PO DIN [facility] Last Admin: 05/18/17 17:37 Dose: 40 mg Diltiazem HCl (Cardizem Cd) 120 mg PO DAILY [facility] Last Admin: 05/18/17 10:22 Dose: Not Given Escitalopram Oxalate (Lexapro) 20 mg PO DAILY [facility] Last Admin: 05/18/17 09:59 Dose: 20 mg Folic Acid (Folic Acid) 1 mg PO DAILY [facility] Last Admin: 05/18/17 10:00 Dose: 1 mg Glipizide (Glucotrol Xl) 10 mg PO DAILY [facility] Last Admin: 05/18/17 10:01 Dose: 10 mg Sodium Chloride (Sodium Chloride 0.9%) 1,000 mls @ 80 mls/hr IV .[id number] [facility] Last Admin: 05/18/17 20:19 Dose: 80 mls/hr Ceftriaxone Sodium (Rocephin 1 Gram Ivpb (D5w)) 1 gm in 100 mls @ 100 mls/hr IVPB DAILY [facility] PRN Reason: Protocol Last Admin: 05/18/17 14:22 Dose: 100 mls/hr Insulin Detemir (Levemir) 15 unit SC Q12 [facility] Last Admin: 05/18/17 22:04 Dose: 15 unit Insulin Human Regular (Humulin R Low) 0 units SC ACHS [facility] PRN Reason: Protocol Last Admin: 05/18/17 22:00 Dose: Not Given Magnesium Oxide (Mag-Ox) 400 mg PO BID [facility] Last Admin: 05/18/17 17:38 Dose: 400 mg Metronidazole (Flagyl) 250 mg PO QID [facility] PRN Reason: Protocol Last Admin: 05/18/17 22:04 Dose: 250 mg Montelukast Sodium (Singulair) 10 mg PO HS [facility] Last Admin: 05/18/17 22:05 Dose: 10 mg Non-Formulary Medication (Tadalafil [Adcirca]) 20 mg PO HS [facility] Last Admin: 05/18/17 22:05 Dose: Not Given Ondansetron HCl (Zofran Tab) 4 mg PO Q6 PRN PRN Reason: Nausea/Vomiting Pantoprazole Sodium (Protonix Ec Tab) 40 mg PO DAILY [facility] Last Admin: 05/18/17 09:59 Dose: 40 mg Trimethoprim/Sulfamethoxazole (Bactrim Ds Tab) 1 tab PO BID [facility] PRN Reason: Protocol Last Admin: 05/18/17 17:38 Dose: 1 tab Zolpidem Tartrate (Ambien) 5 mg PO HS PRN; Protocol PRN Reason: Insomnia Last Admin: 05/18/17 22:04 Dose: 5 mg - Labs Labs: 05/18/17 06:50 05/18/17 06:50 PT 16.0 SECONDS (9.4-12.5) H 05/16/17 10:10 INR 1.44 (0.93-1.08) H 05/16/17 10:10 APTT 33.1 Seconds (25.1-36.5) 05/16/17 10:10 Attending/Attestation - Attestation I have personally seen and examined this patient.: Yes I have fully participated in the care of the patient.: Yes I have reviewed all pertinent clinical information, including history, physical exam and plan: Yes Notes (Text): 05/18/17 22:21 this patient was seen and evaluated. This is an addendum to the GI progress report dictated by Mery Nance APN. Patient is on Flagyl. Significant improvement of the diarrhea. Stool for C. difficile was negative. Clinically suspect antibiotic-induced diarrhea. Would benefit from completing the treatment for 10 days of Flagyl Would recommend elective endoscopy and also colonoscopy. Patient is chronic PPI therapy for GERD Physical examination abdomen soft no tenderness Thank you very much for allowing us to participate in the care of the patient
--- NOTE | 2017-05-18 14:19 | RAD ---
PROCEDURE: Right Foot Radiographs. HISTORY: right foot fracture COMPARISON: 04/16/2017 FINDINGS: BONES: Generalized osteopenia especially pronounced juxta-articular at the tarsal metatarsal junctions. Integrity of the 2nd 3rd and 4th metatarsal basea are indeterminate. The bone mineralization here may simply represent coalescing subchondral cystic changes. However radiographic are cold stress fractures at cystic changes are not excluded. For this CT or MR would be more sensitive. The subacute nondisplaced fracture of the 5th metatarsal metaphyseal base is renoted no a bridging callus formation here noted. The fracture is slightly diastatic - lateral aspect. Deformed healed old fractures third and 4th distal metatarsal metastasis Inferior calcaneal spurring Accessory ossification centers-os peroneum and accessory navicular JOINTS: First metatarsal-phalangeal joint arthrosis SOFT TISSUES: Soft tissues appear increased in density and slightly increased in welling plantar and dorsal aspect mid to forefoot OTHER FINDINGS: None. IMPRESSION: Subacute appearing displaced fracture 5th metatarsal base bridging callus formation here suggested. Incomplete healing. Continued follow-up recommended Cystic in appearance to the 2nd through 5th proximal metatarsal bases - coalescence subchondral cystic changes 1 consideration. R called radiographic stress fractures here cannot be excluded. Further evaluation is needed, consider CT or MRI of the foot Old fractures- 3rd and 4th distal metatarsals with resultant deformity
[2017-05-18] MEDS: cefTRIAXone 1 gm 1 GM/100 ML BAG IVPB SCH (14:22)
--- NOTE | 2017-05-18 15:31 | PN ---
DATE: 05/18/2017 LOCATION: The patient is in room 372, bed 2. REASON FOR CONSULTATION: Followup atrial fibrillation with rapid rate, admitted with vomiting, diarrhea, dehydration. SUBJECTIVE: The patient is lying flat in bed, without chest pain, shortness of breath, or palpitation. PHYSICAL EXAMINATION: VITAL SIGNS: Blood pressure 152/61, respirations 19, pulse 130, temperature 97.9. HEENT: Head is normocephalic. Eyes, pupils normal. Conjunctivae slightly pale. NECK: JVP low. Carotids equal. THORAX: AP diameter normal. LUNGS: Clear. CARDIOVASCULAR: S1 and S2. Irregular rhythm due to atrial fibrillation. ABDOMEN: Soft. Bowel sounds normal. EXTREMITIES: No clubbing. No cyanosis. LABORATORY DATA: WBC 5.7, hemoglobin 9.6, hematocrit 29.8, platelet 233. Sodium 139, potassium 4.4, BUN 12, creatinine 0.9, glucose 215. DIAGNOSES: Atrial fibrillation with rapid ventricular rate, diabetes, hypertension, hyperlipidemia, coronary artery disease, status post coronary artery bypass surgery, status post recent cardiac catheterization at [facility], which showed patent graft, history of atrial fibrillation in the past, radiofrequency ablation as well as transesophageal echocardiography cardioversion, but now the patient went back into atrial fibrillation with rapid rate, cardiomyopathy with ejection fraction of 35% to 40%. PLAN: The patient is on Bystolic 2.5 mg daily. We will discontinue that, and we will add atenolol 25 mg p.o. daily starting now because the patient's heart rate is still around 25 to 130 per minute and also blood pressure elevated. So, we will try to lower the heart rate further. The patient also on Cardizem CD 120 daily, Eliquis 5 mg b.i.d., amiodarone 200 mg p.o. daily. The patient also on IV antibiotic, Lipitor 40 daily. We will monitor the heart rate and blood pressure. We will continue to follow with you. Raphael Nunes MD
[2017-05-18] MEDS: Tmp-Smz 800 mg-160 mg DS Tab PO SCH (17:38)
--- NOTE | 2017-05-18 19:15 | PN ---
DATE: 05/18/2017 REFERRING PHYSICIAN: Marry Mooney MD SUBJECTIVE: The patient is lying in the bed, sleepy, arousable, could not tolerate CPAP well, claims too high pressure. No nausea. No vomiting, diarrhea, leg pain, or leg swelling. OBJECTIVE: GENERAL: No acute distress. VITAL SIGNS: Temperature 98, heart rate is 120, respiratory rate 20, blood pressure 150/88, and pulse ox 99% on room air. HEENT: Moist mucous membrane. Crowded airway. Mallampati score is 4. NECK: Supple. No JVD. LUNGS: Has a fair airflow with few rhonchi. HEART: S1 and S2. ABDOMEN: Soft and nontender. No organomegaly. EXTREMITIES: No edema. NEUROLOGIC: Awake, alert. Follows simple commands. MEDICATIONS: She is on Ambien 5 mg at bedtime p.r.n., Cardizem CD 120 mg daily, amiodarone 200 mg daily, DuoNeb q.6 hours, Eliquis 5 mg twice a day, Flagyl 250 mg 4 times a day, folic acid 1 mg daily, glipizide 10 mg daily insulin coverage, Levemir 50 units subcutaneous q.12 hours, Lexapro 20 mg daily, Lipitor 40 mg daily, magnesium oxide 400 mg twice a day, Protonix 40 mg daily, Rocephin 1 g daily, Singulair 10 mg daily, IV fluid normal saline 80 mL per hour, Adcirca 20 mg at bedtime, Tenormin 25 mg daily, Tylenol p.r.n., Xanax 0.25 mg twice a day, Zofran p.r.n. basis. LABORATORY DATA: Shows hemoglobin 9.6, hematocrit 29.8, WBC 5.7, platelet 233. Sodium 139, potassium 4.4, chloride 104, bicarbonate is 26, BUN 12, creatinine 0.9, glucose is 212 and calcium 8.6. Iron is 68, ferritin is 85, B12 is 482, folate is more than 20. Urine culture positive gram-negative rods. Stool for C. diff is negative. IMPRESSION AND PLAN: Recurrent atrial fibrillation with rapid ventricular response, failed cardioversion in the past, may have sleep apnea syndrome, diabetes, hypertension, hyperlipidemia, coronary artery disease, history of coronary artery bypass surgery, cardiomyopathy, left ventricular ejection fraction of 35%. I spoke to the patient in detail about sleep apnea and its link with recurrent atrial fibrillation. We will decrease CPAP pressure and see if she can tolerate it. Keep head at 45 degree. Continue anticoagulation, gastric prophylaxis, beta joanne and amiodarone. Will be followed by Cardiology. For gram-negative ortega in the urine, we will start antibiotics. Thank you and we will follow with you. Raphael Villalba MD
--- NOTE | 2017-05-19 01:52 | PN ---
DOS: SUBJECTIVE: Patient is a 71-year-old female. The patient is seen and examined at the bedside. Looking comfortable. Could not tolerate CPAP well and according to patient, pressure was very high. No fever, no chills. No nausea, vomiting, or diarrhea. No hematuria or hematochezia. No headache, no dizziness. PHYSICAL EXAMINATION: VITAL SIGNS: Temperature 98, heart rate 120, respiratory rate 20, blood pressure 150/88, pulse oximetry 99% on room air. HEENT: Head: Normocephalic and atraumatic. Eyes: PERRLA. Extraocular muscles intact. Conjunctivae are clear. Nose is patent. Mucous membranes moist. NECK: Supple. No carotid bruits. No thyromegaly. CHEST: Bilaterally symmetrical. HEART: S1 and S2 positive. LUNGS: Have fair airflow with few rhonchi. ABDOMEN: Soft and nontender. No organomegaly. EXTREMITIES: No edema. No cyanosis. NEUROLOGICAL: The patient is awake and alert. Follow simple commands. MEDICATIONS: Ambien, Cardizem, amiodarone, DuoNeb, Eliquis, Flagyl, folic acid, glipizide, insulin, Levemir, Lexapro, Lipitor, magnesium oxide, Protonix, Rocephin, Singulair, Adcirca, and Tenormin. LABORATORY DATA: White blood cell is 5.7; hemoglobin 9.6 on admission, present 11.0; hematocrit 29.8; platelet 233. Sodium 139, potassium 4.4, BUN 12, creatinine 0.9, glucose 215. TIBC 204. Urine has blood in trace and leukocytes positive. ASSESSMENT AND PLAN: Ms. Brigitte Nance is a 71-year-old lady with anemia; insulin-dependent diabetes mellitus type 2, not controlled well; hematuria; proteinuria; urinary tract infection; has recurrent atrial fibrillation with rapid ventricular response; failed cardioversion in the past may be patient has sleep apnea syndrome; hypertension; hypercholesterolemia; coronary artery disease; history of coronary artery bypass surgery; cardiomyopathy; left ventricular ejection fraction of 35%. According to Dr. Villalba, he will decrease the CPAP pressure and see if she can tolerate it. Keep the head elevated at 45 degrees. Continue gastric prophylaxis, deep venous thrombosis prophylaxis, beta blockers, and amiodarone. Gram-negative rods in the urine and started the patient on the antibiotics. Seen by GI, Dr. Schaeffer's nurse practitioner, Mery Nance. The patient has a history of diarrhea, but got better. Diet is advanced to moderate carb, heart healthy, low residual, soft. Seen by Dr. Nunes, chip applying machine tender, and by Dr. Cabrera, video photographer. Patient is on Bystolic. Dr. Nunes discontinued the Bystolic and started atenolol because the patient's heart rate is still around 25 to 130 per minute and also blood pressure elevated. Patient is also on Cardizem. Continue present treatment and repeat labs. We will follow. Marry Mooney MD MTDD
[2017-05-19] MEDS: Sodium Chloride 0.9% 1,000 ML IV SCH ×3 (03:15→15:30)
[2017-05-19] MEDS: Insulin Reg-LOW-Coverage SC SCH ×4 (07:58→22:18)
[2017-05-19] MEDS: Albuterol-Ipratrop 3 mg / 0.5 (3 ml) UD INH SCH (08:10)
--- NOTE | 2017-05-19 10:49 | CP.PCM.PN ---
Subjective - Date & Time of Evaluation Date of Evaluation: 05/19/17 Time of Evaluation: 10:46 - Subjective Subjective: 71 year old female seen and evaluated at bedside with attending Dr. Cabrera for right foot fracture. Patient appears to be resting comfortably in her bed and is in NAD. Patient is AAOx3 and denies of any acute overnight events. Denies of any pain in her feet today. Denies of any F/N/V/C/SOB/CP today. Denies of any other pedal complains at this time. Objective - Vital Signs/Intake and Output Vital Signs (last 24 hours): Temp Pulse Resp BP Pulse Ox 97.6 F 86 20 135/76 98 05/19/17 06:00 05/19/17 06:00 05/19/17 06:00 05/19/17 06:00 05/19/17 06:00 Intake and Output: 05/19/17 05/19/17 06:59 18:59 Intake Total 2770 Output Total 1575 Balance 1195 - Medications Medications: Current Medications Acetaminophen (Tylenol 325mg Tab) 650 mg PO Q8 PRN PRN Reason: Pain, Mild (1-3) Alprazolam (Xanax) 0.25 mg PO BID [facility] PRN Reason: Protocol Stop: 05/23/17 18:01 Last Admin: 05/18/17 17:38 Dose: 0.25 mg Amiodarone HCl (Cordarone) 200 mg PO DAILY [facility] Last Admin: 05/18/17 09:59 Dose: 200 mg Apixaban (Eliquis) 5 mg PO BID [facility] PRN Reason: Protocol Last Admin: 05/18/17 17:38 Dose: 5 mg Atorvastatin Calcium (Lipitor) 40 mg PO DIN [facility] Last Admin: 05/18/17 17:37 Dose: 40 mg Diltiazem HCl (Cardizem Cd) 120 mg PO DAILY [facility] Last Admin: 05/18/17 10:22 Dose: Not Given Escitalopram Oxalate (Lexapro) 20 mg PO DAILY [facility] Last Admin: 05/18/17 09:59 Dose: 20 mg Folic Acid (Folic Acid) 1 mg PO DAILY [facility] Last Admin: 05/18/17 10:00 Dose: 1 mg Glipizide (Glucotrol Xl) 10 mg PO DAILY [facility] Last Admin: 05/18/17 10:01 Dose: 10 mg Sodium Chloride (Sodium Chloride 0.9%) 1,000 mls @ 80 mls/hr IV .[id number] [facility] Last Admin: 05/19/17 03:15 Dose: Not Given Ceftriaxone Sodium (Rocephin 1 Gram Ivpb (D5w)) 1 gm in 100 mls @ 100 mls/hr IVPB DAILY [facility] PRN Reason: Protocol Last Admin: 05/18/17 14:22 Dose: 100 mls/hr Insulin Detemir (Levemir) 15 unit SC Q12 [facility] Last Admin: 05/18/17 22:04 Dose: 15 unit Insulin Human Regular (Humulin R Low) 0 units SC ACHS [facility] PRN Reason: Protocol Last Admin: 05/19/17 07:58 Dose: Not Given Levalbuterol HCl (Xopenex) 0.63 mg IH [id number] PRN PRN Reason: Shortness of Breath Magnesium Oxide (Mag-Ox) 400 mg PO BID [facility] Last Admin: 05/18/17 17:38 Dose: 400 mg Metronidazole (Flagyl) 250 mg PO QID [facility] PRN Reason: Protocol Last Admin: 05/18/17 22:04 Dose: 250 mg Montelukast Sodium (Singulair) 10 mg PO HS [facility] Last Admin: 05/18/17 22:05 Dose: 10 mg Non-Formulary Medication (Tadalafil [Adcirca]) 20 mg PO HS [facility] Last Admin: 05/18/17 22:05 Dose: Not Given Ondansetron HCl (Zofran Tab) 4 mg PO Q6 PRN PRN Reason: Nausea/Vomiting Pantoprazole Sodium (Protonix Ec Tab) 40 mg PO DAILY [facility] Last Admin: 05/18/17 09:59 Dose: 40 mg Propranolol HCl (Inderal) 20 mg PO TID [facility] Trimethoprim/Sulfamethoxazole (Bactrim Ds Tab) 1 tab PO BID [facility] PRN Reason: Protocol Last Admin: 05/18/17 17:38 Dose: 1 tab Zolpidem Tartrate (Ambien) 5 mg PO HS PRN; Protocol PRN Reason: Insomnia Last Admin: 05/18/17 22:04 Dose: 5 mg - Labs Labs: 05/18/17 06:50 05/18/17 06:50 PT 16.0 SECONDS (9.4-12.5) H 05/16/17 10:10 INR 1.44 (0.93-1.08) H 05/16/17 10:10 APTT 33.1 Seconds (25.1-36.5) 05/16/17 10:10 - Constitutional Appears: Well, Non-toxic, No Acute Distress - Extremities Exam Extremities Exam: absent: Calf Tenderness Additional comments: Bilateral LE exam: VASC: DP/PT pulses are very faintly palpable due to 2+ pitting edema, Cap refill time: < 3 sec to all digits, Temp gradient: warm to cool from proximal to distal. 2+ pitting edema noted to bilateral distal LE DERM: no open lesions, no interdigital maceration, localized chronic erythema on the distal anterior leg on the left, no clinical suspicion of active infection NEURO: protective sensation grossly intact ORTHO: diffuse tenderness on palpation of the dorsum of the right foot, active and passive ROM at the ankle joint, and MTPJ intact with no pain, gapping between the 2nd and 3rd digit noted, MMT: 5/5 during inversion, eversion, plantarflexion and dorsiflexion - Neurological Exam Neurological Exam: Alert, Awake, Oriented x3 - Psychiatric Exam Psychiatric exam: Normal Affect, Normal Mood Assessment and Plan - Assessment and Plan (Free Text) Assessment: 71 y/o female seen and evaluated 3 months s/p multiple metatarsal fracture of the right foot Plan: Patient seen and evaluated at bedside with attending Dr. Cabrera X-rays of the right foot reviewed Partial weightbearing to RLE with walker in a CAM boot Post-op shoe ordered to use while in the hospital Patient is stable from podiatry stand-point - please follow up with Dr. Cabrera when discharged from the hospital Please re-consult podiatry if needed
[2017-05-19] MEDS: Insulin Detemir 100 units/ml Vial (Levemir) SC SCH ×2 (11:01→22:23)
[2017-05-19] MEDS: Magnesium Oxide 400 mg Tab UD PO SCH ×2 (11:02→18:00)
[2017-05-19] MEDS: Pantoprazole 40 mg EC Tab PO SCH (11:03)
[2017-05-19] MEDS: diltiaZEM 120 mg/24 Hours CD Cap PO SCH (11:03)
[2017-05-19] MEDS: Tmp-Smz 800 mg-160 mg DS Tab PO SCH (11:03)
[2017-05-19] MEDS: GlipiZIDE 10 mg SR Tab PO SCH (11:04)
[2017-05-19] MEDS: cefTRIAXone 1 gm 1 GM/100 ML BAG IVPB SCH (11:05)
[2017-05-19 11:55] LABS: MEAN CELL VOLUME 94.6 fl (80.0-105.0); MEAN CORPUSCULAR HEMOGLOBIN 30.4 pg (25.0-35.0); MEAN CORPUSCULAR HGB CONC 32.1 g/dl (31.0-37.0); MEAN PLATELET VOLUME 10.5 fl (7.0-11.0); RED CELL DISTRIBUTION WIDTH 14.6 % (11.5-14.5); WHITE BLOOD COUNT 8.1 10^3/ul (4.5-11.0)
[2017-05-19 12:06] LABS: BLOOD UREA NITROGEN 11 mg/dL (7-21); CALCIUM 8.8 mg/dL (8.4-10.5); CARBON DIOXIDE 26 mmol/L (21-33); CHLORIDE 104 mmol/L (98-107); GFR AFRICAN-AMERICAN > 60; GLUCOSE,RANDOM 249 mg/dL (70-110); MAGNESIUM 1.5 mg/dL (1.7-2.2); POTASSIUM 4.7 mmol/L (3.6-5.0); SODIUM 137 mmol/L (132-148)
[2017-05-19] MEDS ORDERED: Magnesium Sulfate 2 GM in Sodium Chloride 0.9% 100 ML IVPB ONE (14:31)
--- NOTE | 2017-05-19 15:09 | PN ---
DATE: 05/19/2017 PULMONARY PROGRESS NOTE REFERRING PHYSICIAN: Marry Mooney MD. SUBJECTIVE: She is out of bed to chair. Overnight, could not tolerate CPAP well, only used for 1 hour or so. There is no cough, no sputum production. No nausea. No vomiting. No diarrhea. No leg pain or leg swelling. PHYSICAL EXAMINATION: GENERAL: In no acute distress. VITAL SIGNS: Temperature 98, heart rate is 121, respiratory rate is 20, blood pressure 125/74, and pulse ox 98% on nasal cannula. HEENT: Moist mucous membrane. Crowded airway. NECK: Supple. No JVD. LUNGS: Have scattered rhonchi. HEART: Irregularly irregular. ABDOMEN: Soft, nontender, no organomegaly. EXTREMITIES: There is not much edema. NEUROLOGIC: Awake, alert, follows simple commands. MEDICATIONS: She is on Ambien 5 mg at bedtime p.r.n., Bactrim double-strength 1 tab twice a day, Cardizem CD 120 mg daily, amiodarone 200 mg daily, Eliquis 5 mg twice a day, Flagyl 250 mg 4 times a day, folic acid 1 mg daily, Glucotrol XL 10 mg daily insulin coverage, Inderal 20 mg 3 times a day p.r.n., Levemir 50 units subcutaneous q. 12 hours, Lexapro 20 mg daily, Lipitor 40 mg daily, magnesium oxide 400 mg twice a day, Protonix 40 mg daily, Rocephin 1 g daily, Singulair 10 mg daily, IV fluid normal saline 80 mL per hour, Xanax 0.25 mg twice a day p.r.n., and Xopenex inhaler q. 6 hours p.r.n. LABORATORY DATA: Reviewed. No new lab is available since yesterday. Urine culture has Klebsiella pneumoniae. Stool for C. diff is negative. IMPRESSION AND PLAN: Recurrent atrial fibrillation with rapid ventricular response, in the past had a cardioversion, converted back to atrial fibrillation, may have a component of sleep apnea syndrome, diabetes, hypertension, hyperlipidemia, coronary artery disease, history of coronary artery bypass surgery, cardiomyopathy, left ventricular ejection fraction of 35%, urinary tract infection. Pulmonary point of view, doing okay. Continue to encourage BiPAP use. I had a long discussion with the patient about sleep apnea and its relation to the recurrent atrial fibrillation. Continue antibiotics, gastric prophylaxis, IV fluid. Thank you and we will follow with you. Raphael Villalba MD
--- NOTE | 2017-05-19 16:12 | CP.PCM.PN ---
<Mery Nance - Last Filed: 05/19/17 16:11> Subjective - Date & Time of Evaluation Date of Evaluation: 05/19/17 Time of Evaluation: 10:35 - Subjective Subjective: S&E at bedside in am, chart reviewed. No diarrhea, N/V or abdominal pain. Tolerating oral intake. No overt GI bleeding. No new complaints. Objective - Vital Signs/Intake and Output Vital Signs (last 24 hours): Temp Pulse Resp BP Pulse Ox 97.4 F L 84 18 141/71 98 05/19/17 12:00 05/19/17 15:20 05/19/17 12:00 05/19/17 15:20 05/19/17 06:00 Intake and Output: 05/19/17 05/19/17 06:59 18:59 Intake Total 2770 480 Output Total 1575 650 Balance 1195 -170 - Medications Medications: Current Medications Acetaminophen (Tylenol 325mg Tab) 650 mg PO Q8 PRN PRN Reason: Pain, Mild (1-3) Alprazolam (Xanax) 0.25 mg PO BID [facility] PRN Reason: Protocol Stop: 05/23/17 18:01 Last Admin: 05/19/17 11:02 Dose: 0.25 mg Amiodarone HCl (Cordarone) 200 mg PO DAILY [facility] Last Admin: 05/19/17 11:27 Dose: 200 mg Apixaban (Eliquis) 5 mg PO BID [facility] PRN Reason: Protocol Last Admin: 05/19/17 11:04 Dose: 5 mg Atorvastatin Calcium (Lipitor) 40 mg PO DIN [facility] Last Admin: 05/18/17 17:37 Dose: 40 mg Diltiazem HCl (Cardizem Cd) 120 mg PO DAILY [facility] Last Admin: 05/19/17 11:03 Dose: 120 mg Escitalopram Oxalate (Lexapro) 20 mg PO DAILY [facility] Last Admin: 05/19/17 11:02 Dose: 20 mg Folic Acid (Folic Acid) 1 mg PO DAILY [facility] Last Admin: 05/19/17 11:03 Dose: 1 mg Glipizide (Glucotrol Xl) 10 mg PO DAILY [facility] Last Admin: 05/19/17 11:04 Dose: 10 mg Sodium Chloride (Sodium Chloride 0.9%) 1,000 mls @ 80 mls/hr IV .[id number] [facility] Last Admin: 05/19/17 15:30 Dose: 80 mls/hr Insulin Detemir (Levemir) 15 unit SC Q12 [facility] Last Admin: 05/19/17 11:01 Dose: 15 unit Insulin Human Regular (Humulin R Low) 0 units SC ACHS [facility] PRN Reason: Protocol Last Admin: 05/19/17 13:24 Dose: 3 units Levalbuterol HCl (Xopenex) 0.63 mg IH [id number] PRN PRN Reason: Shortness of Breath Magnesium Oxide (Mag-Ox) 400 mg PO BID [facility] Last Admin: 05/19/17 11:02 Dose: 400 mg Metronidazole (Flagyl) 250 mg PO QID [facility] PRN Reason: Protocol Last Admin: 05/19/17 13:25 Dose: 250 mg Montelukast Sodium (Singulair) 10 mg PO HS [facility] Last Admin: 05/18/17 22:05 Dose: 10 mg Nitrofurantoin Macrocrystals (Macrobid) 100 mg PO Q12 [facility] Non-Formulary Medication (Tadalafil [Adcirca]) 20 mg PO HS [facility] Last Admin: 05/18/17 22:05 Dose: Not Given Ondansetron HCl (Zofran Tab) 4 mg PO Q6 PRN PRN Reason: Nausea/Vomiting Pantoprazole Sodium (Protonix Ec Tab) 40 mg PO DAILY [facility] Last Admin: 05/19/17 11:03 Dose: 40 mg Propranolol HCl (Inderal) 20 mg PO TID [facility] Last Admin: 05/19/17 15:20 Dose: 20 mg Zolpidem Tartrate (Ambien) 5 mg PO HS PRN; Protocol PRN Reason: Insomnia Last Admin: 05/18/17 22:04 Dose: 5 mg - Labs Labs: 05/19/17 11:40 05/19/17 11:40 PT 16.0 SECONDS (9.4-12.5) H 05/16/17 10:10 INR 1.44 (0.93-1.08) H 05/16/17 10:10 APTT 33.1 Seconds (25.1-36.5) 05/16/17 10:10 - Constitutional Appears: No Acute Distress - Head Exam Head Exam: NORMOCEPHALIC - Eye Exam Eye Exam: Normal appearance. absent: Scleral icterus - ENT Exam ENT Exam: Mucous Membranes Moist - Respiratory Exam Respiratory Exam: NORMAL BREATHING PATTERN. absent: Respiratory Distress - Cardiovascular Exam Cardiovascular Exam: +S1, +S2 - GI/Abdominal Exam GI & Abdominal Exam: Soft, Normal Bowel Sounds. absent: Guarding, Tenderness, Rebound - Extremities Exam Extremities Exam: absent: Calf Tenderness - Neurological Exam Neurological Exam: Alert, Awake, Oriented x3 Assessment and Plan - Assessment and Plan (Free Text) Assessment: ASSESSMENT: Atrial Fibrillation,w/ RVR Diarrhea, may be antibiotics induced, h/o UTI w/ antibiotic treatment, cdiff negative UTI DM Constipation PLAN: continue mod carb/heart healthy/low residual soft on Amiodarone on Eliquis continue Flagyl to start Macrobid elective outpatient colon, discuss w/ patient. Seen and discussed w/ Dr. Schaeffer. <Delmy Schaeffer V - Last Filed: 05/19/17 22:53> Objective - Vital Signs/Intake and Output Vital Signs (last 24 hours): Temp Pulse Resp BP Pulse Ox 98.2 F 113 H 20 114/53 L 97 05/19/17 18:00 05/19/17 21:22 05/19/17 18:00 05/19/17 21:22 05/19/17 18:00 Intake and Output: 05/19/17 05/20/17 18:59 06:59 Intake Total 480 Output Total 650 Balance -170 - Medications Medications: Current Medications Acetaminophen (Tylenol 325mg Tab) 650 mg PO Q8 PRN PRN Reason: Pain, Mild (1-3) Alprazolam (Xanax) 0.25 mg PO BID [facility] PRN Reason: Protocol Stop: 05/23/17 18:01 Last Admin: 05/19/17 18:01 Dose: 0.25 mg Amiodarone HCl (Cordarone) 200 mg PO DAILY [facility] Last Admin: 05/19/17 11:27 Dose: 200 mg Apixaban (Eliquis) 5 mg PO BID [facility] PRN Reason: Protocol Last Admin: 05/19/17 18:01 Dose: 5 mg Atorvastatin Calcium (Lipitor) 40 mg PO DIN [facility] Last Admin: 05/19/17 18:01 Dose: 40 mg Diltiazem HCl (Cardizem Cd) 120 mg PO DAILY [facility] Last Admin: 05/19/17 11:03 Dose: 120 mg Escitalopram Oxalate (Lexapro) 20 mg PO DAILY [facility] Last Admin: 05/19/17 11:02 Dose: 20 mg Folic Acid (Folic Acid) 1 mg PO DAILY [facility] Last Admin: 05/19/17 11:03 Dose: 1 mg Glipizide (Glucotrol Xl) 10 mg PO DAILY [facility] Last Admin: 05/19/17 11:04 Dose: 10 mg Sodium Chloride (Sodium Chloride 0.9%) 1,000 mls @ 80 mls/hr IV .[id number] [facility] Last Admin: 05/19/17 15:30 Dose: 80 mls/hr Insulin Detemir (Levemir) 15 unit SC Q12 [facility] Last Admin: 05/19/17 22:23 Dose: 15 unit Insulin Human Regular (Humulin R Low) 0 units SC ACHS [facility] PRN Reason: Protocol Last Admin: 05/19/17 22:18 Dose: Not Given Levalbuterol HCl (Xopenex) 0.63 mg IH [id number] PRN PRN Reason: Shortness of Breath Last Admin: 05/19/17 21:36 Dose: 0.63 mg Magnesium Oxide (Mag-Ox) 400 mg PO BID [facility] Last Admin: 05/19/17 18:00 Dose: 400 mg Metronidazole (Flagyl) 250 mg PO QID [facility] PRN Reason: Protocol Last Admin: 05/19/17 22:22 Dose: 250 mg Montelukast Sodium (Singulair) 10 mg PO [facility] Last Admin: 05/19/17 21:31 Dose: 10 mg Nitrofurantoin Macrocrystals (Macrobid) 100 mg PO Q12 [facility] Last Admin: 05/19/17 22:22 Dose: 100 mg Non-Formulary Medication (Tadalafil [Adcirca]) 20 mg PO [facility] Last Admin: 05/19/17 22:26 Dose: Not Given Ondansetron HCl (Zofran Tab) 4 mg PO Q6 PRN PRN Reason: Nausea/Vomiting Pantoprazole Sodium (Protonix Ec Tab) 40 mg PO DAILY [facility] Last Admin: 05/19/17 11:03 Dose: 40 mg Propranolol HCl (Inderal) 20 mg PO TID [facility] Last Admin: 05/19/17 19:04 Dose: 20 mg Verapamil HCl (Verapamil Inj) 2.5 mg IVP Q6 PRN PRN Reason: heart rate above 130 Last Admin: 05/19/17 21:22 Dose: 2.5 mg Zolpidem Tartrate (Ambien) 5 mg PO HS PRN; Protocol PRN Reason: Insomnia Last Admin: 05/19/17 21:31 Dose: 5 mg - Labs Labs: 05/19/17 11:40 05/19/17 11:40 PT 16.0 SECONDS (9.4-12.5) H 05/16/17 10:10 INR 1.44 (0.93-1.08) H 05/16/17 10:10 APTT 33.1 Seconds (25.1-36.5) 05/16/17 10:10 Attending/Attestation - Attestation I have personally seen and examined this patient.: Yes I have fully participated in the care of the patient.: Yes I have reviewed all pertinent clinical information, including history, physical exam and plan: Yes Notes (Text): this is an addendum to the progress report dictated by Mery Nance APN. Patient was seen and evaluated earlier On examination abdomen soft no tenderness His diarrhea significantly has improved on by mouth Flagyl Would benefit from elective EGD colonoscopy thank you pullman car clerk approximately the patient 05/19/17 22:50
[2017-05-19] MEDS: Levalbuterol 0.63 MG/3 ML Inhal Soln UD IH PRN ×2 (16:46→21:36)
--- NOTE | 2017-05-19 19:44 | PN ---
DATE: 05/19/2017 REASON FOR CONSULTATION: Followup of AFib with rapid ventricular rate, diarrhea, and vomiting. SUBJECTIVE: The patient denies any chest pain, shortness of breath, or any palpitation. Heart rate is well controlled last night, the patient had heart rate IV Cardizem followed by 25 mg of Tenormin since the patient is stable. PHYSICAL EXAMINATION: VITAL SIGNS: Heart rate 99, blood pressure 125/54. HEENT: PERRLA intact. NECK: Supple. No carotid bruit or thyromegaly. CHEST: Clear to auscultation. HEART: S1 and S2 regular. ABDOMEN: Soft. EXTREMITIES: Clubbing and cyanosis negative. LABORATORY DATA: Blood workup are as follows: WBC 8.1, hemoglobin 10.6, hematocrit 33.0, platelet count 289. Chemistry shows sodium 137, potassium 4.6, chloride 104, bicarbonate 26, anion gap of 12, BUN 11, and creatinine 1.0, magnesium 1.5. IMPRESSION: Atrial fibrillation paroxysmal, status post radiofrequency ablation, status post transesophageal echocardiography cardioversion on last admission, history of coronary artery disease, coronary artery bypass graft, status post recent catheterization earlier this year, patent graft, diarrhea; admitted with nausea, vomiting, and sepsis. RECOMMENDATIONS: Continue Cardizem CD 120 mg daily. Continue amiodarone. Discontinue atenolol. Start propranolol 20 mg three times a day. Continue apixaban. If remained stable, possible discharge to TCU. We will supplement magnesium. We will give 2 g magnesium in addition to patient getting p.o., but it is not adequately supplemented, so we will give IV one dose also. Repeat the lab in the morning. Repeat the EKG in the morning. The patient had failed JORGE LUIS cardioversion, failed radiofrequency ablation. The patient goes back and forth in normal sinus and atrial fibrillation, possibly due to underlying sepsis, needed to be controlled diarrhea, and then eventually the patient needs radiofrequency ablation. Discussed with the patient. The patient does not want to go other places than [facility]. The patient had educational director, Dr. Horn and Dr. Singh's group followed at [facility]. Because of social issue, logistically, the patient does not want to go far from [place] or [place], wanted to stay with the local educational director, so emphasis was made upon discharge, the patient needs to be followed up with them, needs possible restudy for EP study and radiofrequency ablation. We will follow with you. Thank you, Dr. Mooney, for providing us the opportunity in taking care of the patient, Brigitte Nance. Raphael Tapia MD
[2017-05-19] MEDS: TADALAFIL 20 MG PO SCH (22:26)
--- NOTE | 2017-05-19 23:20 | PN ---
DATE: SUBJECTIVE: The patient is 71-year-old female. The patient was seen and examined on the bedside, looking comfortable. No nausea or vomiting. No diarrhea. No hematuria or hematochezia. No swelling of the legs. No chest pain or palpitations. Overnight, could not tolerate CPAP well, only used for 1 hour or so. No coughing. No sputum production. Length of time discussion done with the patient's daughter. PHYSICAL EXAMINATION VITAL SIGNS: Temperature is 98, heart rate 121, respiratory rate 20, blood pressure 125/74 and pulse oximetry is 98% on nasal cannula. HEENT: Head is normocephalic and atraumatic. Eyes; PERRLA. Extraocular muscles are intact. Conjunctivae clear. Nose patent. Mucous membranes moist. NECK: Supple. No carotid bruit, JVD or thyromegaly. CHEST: Bilaterally symmetrical. HEART: S1 and S2 positive. LUNGS: Clear to auscultation. ABDOMEN: Soft. Bowel sounds present. No organomegaly. EXTREMITIES: No edema. No cyanosis. NEUROLOGIC: The patient is awake and alert. Follows simple commands. MEDICATIONS: Ambien, Bactrim, Cardizem, amiodarone, Eliquis, Flagyl, folic acid, Glucotrol, Levemir, Lexapro, Lipitor, magnesium, Protonix, Rocephin, Xanax and Xopenex. LABORATORY DATA: We do not have recent labs today, but I reviewed old labs. Urine culture shows Klebsiella pneumoniae, stool for C. difficile toxin colitis. ASSESSMENT AND PLAN: Ms. Brigitte Nance is a 71-year-old lady with history of atrial fibrillation with rapid ventricular response and she has multiple attacks of atrial fibrillation. In the past, she had cardioversion, converted back to atrial fibrillation, need ablation and according to Dr. Villalba, the patient needs sleep apnea syndrome treatment, diabetes mellitus, hypertension, hypercholesterolemia, coronary artery disease, history of coronary artery bypass surgery, cardiomyopathy, left ventricular ejection fraction of 35%, urinary tract infection. Encourage bilevel positive airway pressure. Dr. Villalba has discussion done with the patient related to recurrent atrial fibrillation. Gastrointestinal and deep venous thrombosis prophylaxis. Seen by Dr. Tapia and Mery Nance. History of diarrhea may be antibiotics induced, history of urinary tract infection. Continue amiodarone, Eliquis and Flagyl. Macrobid started because of the sensitivity of the bacteria. the patient has elective outpatient colonoscopy. Discussion done with the patient's daughter. May be we will take the patient to [facility] and do some arrangements via Dr. Conde for ablation. We will follow up. Marry Mooney MD [email or web address]
[2017-05-20] MEDS: Sodium Chloride 0.9% 1,000 ML IV SCH ×2 (05:19→15:28)
[2017-05-20 07:13] LABS: BASO # 0.04 K/mm3 (0.0-2.0); BASO % 0.4 % (0.0-3.0); EOS # 0.3 (0.0-0.7); EOS % 3.5 % (1.5-5.0); GRAN # 5.97 (1.4-6.5); GRAN % 67.2 % (50.0-68.0); LYMPH # 1.8 (1.2-3.4); LYMPH % 20.6 % (22.0-35.0); MEAN CELL VOLUME 92.5 fl (80.0-105.0); MEAN CORPUSCULAR HEMOGLOBIN 30.1 pg (25.0-35.0); MEAN CORPUSCULAR HGB CONC 32.5 g/dl (31.0-37.0); MEAN PLATELET VOLUME 10.4 fl (7.0-11.0); MONO # 0.7 (0.1-0.6); MONO % 8.3 % (1.0-6.0); RED CELL DISTRIBUTION WIDTH 14.5 % (11.5-14.5); WHITE BLOOD COUNT 8.9 10^3/ul (4.5-11.0)
[2017-05-20] MEDS: Insulin Reg-LOW-Coverage SC SCH ×4 (08:17→22:54)
[2017-05-20 08:34] LABS: ALB/GLOB RATIO 1.2 (1.1-1.8); BILIRUBIN,TOTAL 0.5 mg/dL (0.2-1.3); CALCIUM 8.6 mg/dL (8.4-10.5); MAGNESIUM 1.8 mg/dL (1.7-2.2); PHOSPHOROUS 2.8 mg/dL (2.5-4.5); POTASSIUM 4.5 mmol/L (3.6-5.0)
--- NOTE | 2017-05-20 10:02 | PN ---
DATE: 05/20/2017 REASON FOR CONSULTATION: Followup AFib with rapid ventricular rate, diarrhea, and vomiting. 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 OBJECTIVE: GENERAL: Lying flat in bed, not in apparent distress. VITAL SIGNS: As follows, temperature afebrile, heart rate 111, blood pressure 117/60. HEENT: PERRLA. Extraocular muscles intact. NECK: Supple. No carotid bruit or thyromegaly. CHEST: Clear to auscultation. HEART: S1 and S2, regular. ABDOMEN: Soft. EXTREMITIES: Clubbing and cyanosis negative. LABORATORY DATA: Blood workup as follows: WBC 8.8, hemoglobin 10.4, hematocrit 32, and platelet count 306. Chemistry shows sodium 137, potassium 4.5, chloride 105, carbon dioxide 24, anion gap of 12, BUN 14, and creatinine 1.1. IMPRESSION: A 71-year-old female with past medical history significant for obesity, increased body mass index 40 kg/m2, diabetes, hypertension, hyperlipidemia, coronary artery disease, status post coronary artery bypass graft, history of percutaneous transluminal coronary angioplasty, left anterior descending left main in 2010, history of coronary artery bypass graft in 2004. Admitted with nausea, vomiting, recurrent diarrhea, atrial fibrillation with rapid ventricular rate starting Cardizem, got better, but diarrhea restarted again. The patient started on propranolol 20 mg three times a day, amiodarone and Cardizem, but in between patient breakthrough with rapid rate, though patient's persistent atrial fibrillation is status post radiofrequency ablation 4-6 weeks ago at [facility] history of transesophageal echocardiography cardioversion, reverted back to atrial fibrillation. RECOMMENDATIONS: We will discontinue Cardizem. Start verapamil p.o. 40 mg and change tomorrow to long acting. Discussed with Dr. Mooney who was very much concerned about the patient's rate. Mentioned the patient eventually needs radiofrequency ablation. Discussed with the patient. The patient does not want to go other facility than [place] because of the logistic issue and social issue for the daughter to go from [place] or [place], wanted to stick around [facility] in [place]. So far now, we will control the heart rate. Once the diarrhea is controlled, the patient can be discharged home, followed up with Dr. Horn and Dr. Singh for EP study. Discussed with the patient in length this morning. Continue anticoagulation. Continue verapamil. We will give one dose of digoxin to control the heart rate. Also, try to avoid DuoNeb nebulizer treatment. We will change to Xopenex to prevent tachycardia. Thank you Dr. Mooney for providing us the opportunity in taking care of the patient, Brigitte Nance. Raphael Tapia MD
[2017-05-20] MEDS: Insulin Detemir 100 units/ml Vial (Levemir) SC SCH ×3 (10:53→21:42)
[2017-05-20] MEDS: Magnesium Oxide 400 mg Tab UD PO SCH ×2 (10:54→17:16)
[2017-05-20] MEDS: Pantoprazole 40 mg EC Tab PO SCH (10:54)
[2017-05-20] MEDS: GlipiZIDE 10 mg SR Tab PO SCH (10:55)
[2017-05-20] MEDS: Levalbuterol 0.63 MG/3 ML Inhal Soln UD IH PRN ×2 (13:15→19:36)
[2017-05-20 15:21] VITALS: O2SAT 96
--- NOTE | 2017-05-20 17:15 | CP.PCM.PN ---
<Mery Nance - Last Filed: 05/20/17 17:14> Subjective - Date & Time of Evaluation Date of Evaluation: 05/20/17 Time of Evaluation: 09:40 - Subjective Subjective: S&E at bedside, patient c/o nausea and vomited last night after dinner, had salmon, no appetite last night but daughter encourageing patient to eat so she had 4 bites of salmon and vomited, no blood noted. Had "diarrhea" more "mushy" not liquid per patient. Objective - Vital Signs/Intake and Output Vital Signs (last 24 hours): Temp Pulse Resp BP Pulse Ox 98 F 84 22 136/72 96 05/20/17 11:53 05/20/17 15:27 05/20/17 15:21 05/20/17 15:27 05/20/17 15:21 Intake and Output: 05/20/17 05/20/17 06:59 18:59 Intake Total 1740 1020 Output Total 1000 Balance 740 1020 - Medications Medications: Current Medications Acetaminophen (Tylenol 325mg Tab) 650 mg PO Q8 PRN PRN Reason: Pain, Mild (1-3) Alprazolam (Xanax) 0.25 mg PO BID [facility] PRN Reason: Protocol Stop: 05/23/17 18:01 Last Admin: 05/20/17 10:55 Dose: 0.25 mg Amiodarone HCl (Cordarone) 200 mg PO DAILY [facility] Last Admin: 05/20/17 11:01 Dose: 200 mg Apixaban (Eliquis) 5 mg PO BID [facility] PRN Reason: Protocol Last Admin: 05/20/17 10:54 Dose: 5 mg Atorvastatin Calcium (Lipitor) 40 mg PO DIN [facility] Last Admin: 05/19/17 18:01 Dose: 40 mg Escitalopram Oxalate (Lexapro) 20 mg PO DAILY [facility] Last Admin: 05/20/17 10:55 Dose: 20 mg Folic Acid (Folic Acid) 1 mg PO DAILY [facility] Last Admin: 05/20/17 10:54 Dose: 1 mg Glipizide (Glucotrol Xl) 10 mg PO DAILY [facility] Last Admin: 05/20/17 10:55 Dose: 10 mg Sodium Chloride (Sodium Chloride 0.9%) 1,000 mls @ 80 mls/hr IV .[id number] [facility] Last Admin: 05/20/17 15:28 Dose: 80 mls/hr Insulin Detemir (Levemir) 15 unit SC Q12 [facility] Last Admin: 05/20/17 10:53 Dose: 15 unit Insulin Human Regular (Humulin R Low) 0 units SC ACHS [facility] PRN Reason: Protocol Last Admin: 05/20/17 11:51 Dose: 1 units Levalbuterol HCl (Xopenex) 0.63 mg IH [id number] PRN PRN Reason: Shortness of Breath Last Admin: 05/20/17 13:15 Dose: 0.63 mg Magnesium Oxide (Mag-Ox) 400 mg PO BID [facility] Last Admin: 05/20/17 10:54 Dose: 400 mg Metronidazole (Flagyl) 250 mg PO QID [facility] PRN Reason: Protocol Last Admin: 05/20/17 15:24 Dose: 250 mg Montelukast Sodium (Singulair) 10 mg PO HS [facility] Last Admin: 05/19/17 21:31 Dose: 10 mg Nitrofurantoin Macrocrystals (Macrobid) 100 mg PO Q12 [facility] Last Admin: 05/20/17 10:54 Dose: 100 mg Non-Formulary Medication (Tadalafil [Adcirca]) 20 mg PO HS [facility] Last Admin: 05/19/17 22:26 Dose: Not Given Ondansetron HCl (Zofran Tab) 4 mg PO Q6 PRN PRN Reason: Nausea/Vomiting Pantoprazole Sodium (Protonix Ec Tab) 40 mg PO DAILY [facility] Last Admin: 05/20/17 10:54 Dose: 40 mg Propranolol HCl (Inderal) 20 mg PO TID [facility] Last Admin: 05/20/17 15:24 Dose: 20 mg Verapamil HCl (Verapamil Inj) 2.5 mg IVP Q6 PRN PRN Reason: heart rate above 130 Last Admin: 05/20/17 00:46 Dose: 2.5 mg Verapamil HCl (Calan Tab) 40 mg PO TID [facility] Stop: 05/20/17 23:59 Last Admin: 05/20/17 15:27 Dose: 40 mg Verapamil HCl (Calan Sr Tab) 120 mg PO DAILY [facility] Zolpidem Tartrate (Ambien) 5 mg PO HS PRN; Protocol PRN Reason: Insomnia Last Admin: 05/19/17 21:31 Dose: 5 mg - Labs Labs: 05/20/17 06:20 12/01/17 06:20 PT 16.0 SECONDS (9.4-12.5) H 05/16/17 10:10 INR 1.44 (0.93-1.08) H 05/16/17 10:10 APTT 33.1 Seconds (25.1-36.5) 05/16/17 10:10 - Constitutional Appears: No Acute Distress - Head Exam Head Exam: NORMOCEPHALIC - Eye Exam Eye Exam: Normal appearance. absent: Scleral icterus - ENT Exam ENT Exam: Mucous Membranes Moist - Respiratory Exam Respiratory Exam: NORMAL BREATHING PATTERN. absent: Respiratory Distress - Cardiovascular Exam Cardiovascular Exam: +S1, +S2 - GI/Abdominal Exam GI & Abdominal Exam: Soft, Normal Bowel Sounds. absent: Guarding, Tenderness, Rebound - Back Exam Back Exam: absent: CVA tenderness (L) - Neurological Exam Neurological Exam: Alert, Awake, Oriented x3 - Skin Skin Exam: Dry, Warm Assessment and Plan - Assessment and Plan (Free Text) Assessment: ASSESSMENT: Atrial Fibrillation,w/ RVR Diarrhea, may be antibiotics induced, h/o UTI w/ antibiotic treatment, cdiff negative UTI DM Constipation PLAN: continue mod carb/heart healthy/low residual soft on Amiodarone on Eliquis continue Flagyl on Macrobid on Zofran prn continue PPI elective outpatient colon, discuss w/ patient. Seen and discussed w/ Dr. Schaeffer. <Delmy Schaeffre V - Last Filed: 05/20/17 23:55> Objective - Vital Signs/Intake and Output Vital Signs (last 24 hours): Temp Pulse Resp BP Pulse Ox 97.5 F L 82 19 112/63 96 05/20/17 16:00 05/20/17 17:15 05/20/17 16:00 05/20/17 19:22 05/20/17 16:00 Intake and Output: 05/20/17 05/21/17 18:59 06:59 Intake Total 1020 Balance 1020 - Medications Medications: Current Medications Acetaminophen (Tylenol 325mg Tab) 650 mg PO Q8 PRN PRN Reason: Pain, Mild (1-3) Alprazolam (Xanax) 0.25 mg PO BID [facility] PRN Reason: Protocol Stop: 05/23/17 18:01 Last Admin: 05/20/17 17:25 Dose: 0.25 mg Amiodarone HCl (Cordarone) 200 mg PO DAILY [facility] Last Admin: 05/20/17 11:01 Dose: 200 mg Apixaban (Eliquis) 5 mg PO BID [facility] PRN Reason: Protocol Last Admin: 05/20/17 18:12 Dose: 5 mg Atorvastatin Calcium (Lipitor) 40 mg PO DIN [facility] Last Admin: 05/20/17 17:16 Dose: 40 mg Escitalopram Oxalate (Lexapro) 20 mg PO DAILY [facility] Last Admin: 05/20/17 10:55 Dose: 20 mg Folic Acid (Folic Acid) 1 mg PO DAILY [facility] Last Admin: 05/20/17 10:54 Dose: 1 mg Glipizide (Glucotrol Xl) 10 mg PO DAILY [facility] Last Admin: 05/20/17 10:55 Dose: 10 mg Insulin Detemir (Levemir) 15 unit SC Q12 [facility] Last Admin: 05/20/17 21:42 Dose: Not Given Insulin Human Regular (Humulin R Low) 0 units SC [facility] PRN Reason: Protocol Last Admin: 05/20/17 22:54 Dose: Not Given Levalbuterol HCl (Xopenex) 0.63 mg IH [id number] PRN PRN Reason: Shortness of Breath Last Admin: 05/20/17 19:36 Dose: 0.63 mg Magnesium Oxide (Mag-Ox) 400 mg PO BID [facility] Last Admin: 05/20/17 17:16 Dose: 400 mg Metronidazole (Flagyl) 250 mg PO QID [facility] PRN Reason: Protocol Last Admin: 05/20/17 21:21 Dose: 250 mg Montelukast Sodium (Singulair) 10 mg PO HS [facility] Last Admin: 05/20/17 21:22 Dose: 10 mg Nitrofurantoin Macrocrystals (Macrobid) 100 mg PO Q12 [facility] Last Admin: 05/20/17 21:22 Dose: 100 mg Non-Formulary Medication (Tadalafil [Adcirca]) 20 mg PO HS [facility] Last Admin: 05/20/17 22:55 Dose: Not Given Ondansetron HCl (Zofran Tab) 4 mg PO Q6 PRN PRN Reason: Nausea/Vomiting Pantoprazole Sodium (Protonix Ec Tab) 40 mg PO DAILY [facility] Last Admin: 05/20/17 10:54 Dose: 40 mg Propranolol HCl (Inderal) 20 mg PO TID [facility] Last Admin: 05/20/17 17:15 Dose: 20 mg Verapamil HCl (Verapamil Inj) 2.5 mg IVP Q6 PRN PRN Reason: heart rate above 130 Last Admin: 05/20/17 00:46 Dose: 2.5 mg Verapamil HCl (Calan Tab) 40 mg PO TID [facility] Stop: 05/20/17 23:59 Last Admin: 05/20/17 17:13 Dose: 40 mg Verapamil HCl (Calan Sr Tab) 120 mg PO DAILY [facility] Zolpidem Tartrate (Ambien) 5 mg PO HS PRN; Protocol PRN Reason: Insomnia Last Admin: 05/20/17 21:28 Dose: 5 mg - Labs Labs: 05/20/17 06:20 05/20/17 06:20 PT 16.0 SECONDS (9.4-12.5) H 05/16/17 10:10 INR 1.44 (0.93-1.08) H 05/16/17 10:10 APTT 33.1 Seconds (25.1-36.5) 05/16/17 10:10 Attending/Attestation - Attestation I have personally seen and examined this patient.: Yes I have fully participated in the care of the patient.: Yes I have reviewed all pertinent clinical information, including history, physical exam and plan: Yes Notes (Text): this patient was seen and evaluated earlier. This is an addendum to the GE progress report dictated by Mery Nance APN Patient has recurrence of loose bowel movements. Stool for C. difficile sent to before was negative. However the patient was started empirically on Flagyl which didn't improve bowel movements better. Patient has now recurrence of loose bowel movement. On examination abdomen soft no tenderness Patient is scheduled to be transferred to [facility] for cardiac ablation therapy. Patient requested GI evaluation after the cardiac procedure in view of this recurrent diarrhea 05/20/17 23:52
--- NOTE | 2017-05-20 17:33 | CARD ---
APPROVED REPORT EKG Measurement Heart [id number] <Conclusion> Atrial fibrillation with rapid ventricular response Left axis deviation Anterolateral infarct, age undetermined Abnormal ECG
[2017-05-20] MEDS: TADALAFIL 20 MG PO SCH (22:55)
--- NOTE | 2017-05-21 01:09 | PN ---
DATE: SUBJECTIVE: The patient is a 71-year-old female. The patient was seen and examined on the bedside. No chest pain, but complaining of nausea, vomiting and diarrhea, again is on Cardizem, requiring last night 25 mg of verapamil to control the heart rate. No fever. No chills. No hematuria. No hematochezia. PHYSICAL EXAMINATION: VITAL SIGNS: Temperature 98.6, heart rate 111, blood pressure 117/60. HEENT: Head is normocephalic and atraumatic. Eyes; PERRLA. Extraocular muscles are intact. Conjunctivae clear. Nose patent. Mucous membranes moist. NECK: Supple. No carotid bruit or thyromegaly. CHEST: Bilaterally symmetrical. HEART: S1 and S2 positive. LUNGS: Clear to auscultation. ABDOMEN: Soft. Bowel sounds present. No organomegaly. EXTREMITIES: No edema. No cyanosis. NEUROLOGIC: The patient is awake and alert. Moving all 4 extremities. No focal deficits. MEDICATIONS: Ambien, amiodarone, Eliquis, Flagyl, folic acid, Glucotrol, insulin, Inderal, Levemir, Lexapro, Lipitor, Micardis, nitrofurantoin, magnesium oxide, Protonix, NS, Adcirca, Tylenol, verapamil, Zofran, Xopenex. LABORATORY DATA: White blood cells 8.9, hemoglobin 10.4, hematocrit 32.0, platelets 306. Sodium 137, potassium 4.5, BUN 14, creatinine 1.1, glucose 215. AST 57. ASSESSMENT AND PLAN: Ms. Briggs is a 71-year-old lady with anemia, uncontrolled diabetes mellitus, abnormal liver function test, hematuria, urinary tract infection, seen by Gastroenterology, still having nausea, vomiting, diarrhea, has multiple attacks, atrial fibrillation with rapid ventricular response, history of urinary tract infection with antibiotic treatment, Clostridium difficile toxin colitis, negative; history of constipation also. Gastroenterology recommend elective outpatient colonoscopy, but according to Gastroenterology, nausea, vomiting, diarrhea is related to antibiotics. Seen by the vest tailor Dr. Nunes, history of obesity, hypercholesterolemia, coronary artery disease, status post coronary artery bypass graft, history of percutaneous transluminal coronary angioplasty, atrial fibrillation is not getting controlled, history of radiofrequency ablation four to six weeks ago at [facility], history of transesophageal echocardiography, cardioversion, reverted back to atrial fibrillation. Dr. Nunes discontinued the Cardizem and started on verapamil. Discussion done with Dr. Tapia, then I have discussion done with Dr. Jenny Horn, he is embroiderer hand at [facility], phone number [phone]. Length of time discussion done, plan made. According to him, the patient need again cardio-ablation. We cannot do that in [facility]. Multiple time we tried to take care of that procedure as outpatient as soon as we are sending the patient to [facility]. She is coming back before they have to arrange for cardio-ablation. Now, plan is we will transfer the patient to [facility] and Dr. Horn will do procedure there. Discussion done with the nurse practitioner, Ruth and she is working with the social workers and insurance for the transfer as soon as the patient will go, we will do radioablation procedure and discussion done with the patient also. The patient agrees on that. GI and DVT prophylaxis. Marry Mooney MD JOSÉ
[2017-05-21] MEDS: Levalbuterol 0.63 MG/3 ML Inhal Soln UD IH PRN ×3 (01:42→14:34)
--- NOTE | 2017-05-21 03:13 | PN ---
PULMONARY PROGRESS NOTE DATE: 05/20/2017 REFERRING PHYSICIAN: Marry Mooney MD SUBJECTIVE: She is out of bed to chair, feels okay, gets short of breath on and off, recurrent AFib. No nausea. No vomiting. No diarrhea. Does have some leg swelling. Could not tolerate CPAP. OBJECTIVE: GENERAL: No acute distress. VITAL SIGNS: Temperature is 98, heart rate is 82, respiratory rate is 18-20, blood pressure 112/63, and pulse ox is 96% on 3 L nasal cannula. HEENT: Moist mucous membranes. Crowded airway. Mallampati score is 4. NECK: Supple. No JVD. LUNGS: Have fair airflow with few rhonchi. HEART: S1 and S2. Irregular. ABDOMEN: Soft, nontender. No organomegaly. EXTREMITIES: Trace edema. NEUROLOGIC: Awake and alert. Follows simple commands. LABORATORY DATA: Shows hemoglobin 10.4, hematocrit 32.0, WBC 8.9, and platelet is 306. INR 1.4, sodium 137, potassium 4.5, chloride is 105, bicarbonate 24, BUN 14, creatinine 1.1, glucose 175, calcium 8.6, phosphorus is 2.8, magnesium 1.8, AST 57, ALT 47, alkaline phosphatase is 170, and albumin is 3.2. Urine has Klebsiella pneumoniae. MEDICATIONS: She is on Ambien 5 mg at bedtime p.r.n., Calan SR 120 mg daily, also Calan 40 mg q. 8 hours, amiodarone 200 mg daily, Eliquis 5 mg twice a day, Flagyl 250 mg q.i.d., folic acid 1 mg daily, glipizide 10 mg daily, insulin coverage, Inderal 20 mg three times a day, Levemir 15 units subcutaneously q. 12 hours, Lexapro 20 mg daily, Lipitor 40 mg daily, Macrobid 100 mg twice a day, magnesium oxide 400 mg twice a day, Protonix 40 mg daily, Singulair 10 mg daily, IV fluid normal saline 80 mL per hour, Adcirca 20 mg at bedtime, Tylenol p.r.n., verapamil 2.5 mg IV q. 6 hours p.r.n., Xanax 0.25 mg twice a day, Xopenex inhaled q. 6 hours p.r.n., and Zofran on a p.r.n. basis. IMPRESSION AND PLAN: 1. Recurrent atrial fibrillation with rapid ventricular response, on multiple anti-arrhythmic medications. 2. History of sleep apnea syndrome, noncompliant, claustrophobic, could not tolerate *------*. 3. Other issues are diabetes, hypertension, hyperlipidemia, coronary artery disease, history of coronary artery bypass surgery, cardiomyopathy, left ventricular ejection fraction about 35%, and urinary tract infection. According to the patient, she is being considered to be transferred to [facility], where she had in the past ablation therapy, for now being followed by Cardiology. Keep head elevated at 45 degrees. I requested the nurse to give her Lasix 20 mg IV one dose. May hold IV fluids for now. Avoid sedation. We will follow with you. Raphael Villalba MD
[2017-05-21 07:34] LABS: HEMATOCRIT 31.6 % (36.0-48.0); MEAN CELL VOLUME 93.2 fl (80.0-105.0); MEAN CORPUSCULAR HEMOGLOBIN 30.1 pg (25.0-35.0); MEAN CORPUSCULAR HGB CONC 32.3 g/dl (31.0-37.0); MEAN PLATELET VOLUME 10.4 fl (7.0-11.0); RED CELL DISTRIBUTION WIDTH 14.6 % (11.5-14.5); WHITE BLOOD COUNT 4.9 10^3/ul (4.5-11.0)
[2017-05-21 08:00] LABS: ALB/GLOB RATIO 1.1 (1.1-1.8); ALKALINE PHOSPHATASE 163 U/L (38-126); ALT/SGPT 43 U/L (7-56); AST/SGOT 26 U/L (14-36); BILIRUBIN,TOTAL 0.6 mg/dL (0.2-1.3); BLOOD UREA NITROGEN 13 mg/dL (7-21); CALCIUM 8.8 mg/dL (8.4-10.5); CARBON DIOXIDE 30 mmol/L (21-33); CHLORIDE 105 mmol/L (98-107); GFR AFRICAN-AMERICAN > 60; GLUCOSE,RANDOM 69 mg/dL (70-110); POTASSIUM 3.9 mmol/L (3.6-5.0); SODIUM 142 mmol/L (132-148)
[2017-05-21] MEDS: Insulin Reg-LOW-Coverage SC SCH ×3 (08:46→17:36)
[2017-05-21] MEDS: Magnesium Oxide 400 mg Tab UD PO SCH ×2 (09:51→17:36)
[2017-05-21] MEDS: Pantoprazole 40 mg EC Tab PO SCH (09:52)
[2017-05-21] MEDS ORDERED: Verapamil 120 mg ER Tab PO SCH (10:00)
[2017-05-21] MEDS: GlipiZIDE 10 mg SR Tab PO SCH (10:00)
[2017-05-21] MEDS: Insulin Detemir 100 units/ml Vial (Levemir) SC SCH (10:00)
[2017-05-21 12:11] VITALS: RESP 16
[2017-05-21 14:53] VITALS: PULSE 83
[2017-05-21 17:50] VITALS: BP 135/74
[2017-05-21 18:35] VITALS: TEMP 98.8
--- NOTE | 2017-05-22 03:57 | PN ---
DATE: 05/21/2017 SUBJECTIVE: The patient is lying in the bed. Family is at bedside. Night was unremarkable. She is better after a dose of Lasix. IV fluid was discontinued. No cough. No sputum production. No nausea, vomiting, or diarrhea. Still has some trace leg swelling. PHYSICAL EXAMINATION: GENERAL: In no acute distress. VITAL SIGNS: Temperature 98, heart rate is 83, respiratory rate 16, blood pressure 135/74, and pulse oximetry 96% on nasal cannula. HEENT: Moist mucous membrane. Crowded airway. Mallampati score is 4. NECK: Supple. No JVD. LUNGS: Fair airflow with few rhonchi. HEART: S1, S2. ABDOMEN: Soft, nontender. No organomegaly. EXTREMITIES: No edema. NEUROLOGIC: Awake and alert. Follows simple commands. MEDICATIONS: Reviewed. No new changes in the medications reported since yesterday. LABORATORY DATA: Shows hemoglobin 10.2, ,hematocrit 31.6, WBC 4.9, and platelet count is 289. Sodium 142, potassium is 3.9, chloride 105, bicarbonate 30, BUN 13, creatinine 1.0, glucose 69, calcium 8.8. AST 26, ALT 43, alk phos is 163. Pro BNP is 6480, albumin is 3.2. Urine culture has Klebsiella pneumoniae. Stool for C. difficile is negative. IMPRESSION AND PLAN: Recurrent atrial fibrillation with rapid ventricular response, history of ablation therapy, history of cardioversion, may have sleep apnea syndrome, noncompliant with CPAP/BiPAP. She is claustrophobic, diabetes, hypertension, hyperlipidemia, coronary artery disease, history of coronary artery bypass surgery, cardiomyopathy with ejection fraction of 35%, urinary tract infection. Pulmonary point of view, she is doing okay. Keep head elevated at 45 degree; sleep apnea precaution; if sedated, needs close cardiopulmonary monitoring. She is being transferred to [facility] for further cardiac care. We will suggest a sleep study upon discharge as outpatient. Thank you and we will follow with you. Raphael Villalba MD
--- NOTE | 2017-05-24 08:03 | DS ---
The patient was discharged to [facility] on 05/21/2017. CHIEF COMPLAINT: Nausea, vomiting, diarrhea, heart rate 180. HISTORY OF PRESENT ILLNESS: is 71-year-old lady with past medical history of congestive heart failure; hypertension; diabetes mellitus; coronary artery disease, status post CABG; COPD; had a recent cath done at [facility] by Dr. Horn, recent [facility] for cardioversion by Dr. Tapia. Dr. Horn recommended ablation, and now the patient is on amiodarone and Cardizem, had multiple admissions for uncontrolled heart rate. Actually, the plan was the patient will go for ablation from rehab, but as soon as appointment is done, it was time to go for ablation, the patient was coming back to the hospital for nausea, vomiting, diarrhea and other conditions. This time, I talked to Dr. Horn, then we planned to transfer the patient to [facility] for ablation, then the patient was transferred over there and Dr. Horn consult called and family and the patient agrees. We will continue treatment there. PAST MEDICAL HISTORY: CABG; coronary artery disease, status post ablation; atrial fibrillation; congestive heart failure; hypertension; peripheral vascular disease; COPD; pneumonia; history of cellulitis of the legs; fall; anxiety; depression; open heart surgery. FAMILY HISTORY: Father and mother, noncontributory. HABITS: No smoking. History of former smoker but no smoking. No drugs. No ethanol. ALLERGIES: THE PATIENT IS NOT ALLERGIC WITH ANY MEDICATIONS. HOME MEDICATIONS: Reviewed by me. REVIEW OF SYSTEMS: The patient looks comfortable. No nausea, vomiting, or diarrhea. No hematuria or hematochezia. No swelling of the legs. No chest pain. No palpitation. No headache. No dizziness. No fever. No chills. PHYSICAL EXAMINATION: VITAL SIGNS: Temperature 98, heart rate 83, respiratory rate 16, blood pressure 135/74, and pulse oximetry 96% on nasal cannula. HEENT: Head is normocephalic and atraumatic. Eyes; PERRLA. Extraocular movements intact. Conjunctivae clear. Nose patent. Mucous membranes moist. NECK: Supple. No carotid bruits, JVD, or thyromegaly. CHEST: Bilaterally symmetrical. HEART: S1 and S2 positive. LUNGS: Clear to auscultation. ABDOMEN: Soft. Bowel sounds are present. No organomegaly. EXTREMITIES: No edema. No cyanosis. NEUROLOGIC: Awake and alert. Moving all four extremities. No focal deficits. LABORATORY DATA: Hemoglobin 10.2, hematocrit 31.6, white blood cell 4.9, and platelets 289. Sodium 142, potassium 3.9, chloride 105, BUN 13, creatinine 1.0, and glucose 59. AST 26, ALT 43. Urine culture has Klebsiella pneumoniae. Stool for C. difficile toxin is negative. ASSESSMENT AND PLAN: Ms. is 71-year-old lady with recurrent atrial fibrillation with rapid ventricular response, history of ablation therapy, history of cardioversion, sleep apnea syndrome, noncompliance with CPAP/BiPAP. The patient is claustrophobic, diabetes mellitus, hypertension, hypercholesterolemia, coronary artery disease, history of coronary artery bypass, cardiomyopathy with ejection fraction of 35%, urinary tract infection. Plan was to do cardiac ablation, but I talked to Dr. Horn to transfer the patient to [facility] for the procedure. We will follow up. Marry Mooney MD
== END 2017-05-21 19:58 | disposition short-term general hospital (02) | DRG 309 ==
LOC: ED 09:41 → ERH 11:24 → 3RSO 15:41 → OBSVTOIN 16:32
PROVIDERS: ADMIT Internal Medicine; ATTEND Internal Medicine
PROC: 3E0F7GC Introduction of Other Therapeutic Substance into Respiratory Tract, Via Natural or Artificial Opening (ICD-10-PCS; 2017-05-16)
PROC: 5A09457 Assistance with Respiratory Ventilation, 24-96 Consecutive Hours, Continuous Positive Airway Pressure (ICD-10-PCS; principal; 2017-05-17)
DX: I48.0 Paroxysmal atrial fibrillation (principal); N39.0 Urinary tract infection, site not specified; E11.51 Type 2 diabetes mellitus with diabetic peripheral angiopathy without gangrene; R06.83 Snoring; E11.65 Type 2 diabetes mellitus with hyperglycemia; E86.0 Dehydration; I50.9 Heart failure, unspecified; I11.0 Hypertensive heart disease with heart failure; J44.9 Chronic obstructive pulmonary disease, unspecified; I25.10 Atherosclerotic heart disease of native coronary artery without angina pectoris; F41.9 Anxiety disorder, unspecified; I27.20 Pulmonary hypertension, unspecified; E66.9 Obesity, unspecified; I42.9 Cardiomyopathy, unspecified; F51.02 Adjustment insomnia; E78.00 Pure hypercholesterolemia, unspecified; K52.9 Noninfective gastroenteritis and colitis, unspecified; K59.00 Constipation, unspecified; G47.30 Sleep apnea, unspecified; D64.9 Anemia, unspecified; F40.240 Claustrophobia; K21.9 Gastro-esophageal reflux disease without esophagitis; N28.9 Disorder of kidney and ureter, unspecified; Z79.4 Long term (current) use of insulin; Z91.19 Patient's noncompliance with other medical treatment and regimen; Z95.1 Presence of aortocoronary bypass graft; Z87.440 Personal history of urinary (tract) infections; Z79.01 Long term (current) use of anticoagulants; Z79.899 Other long term (current) drug therapy; Z98.61 Coronary angioplasty status; Z87.891 Personal history of nicotine dependence

== ENCOUNTER 2018-11-16 11:13 | Emergency (ER) | payer MEDICARE, BC ==
[2018-11-16 11:43] VITALS: BMI 39.8
[2018-11-16 11:48] VITALS: BP 114/62; PULSE 69; RESP 22; TEMP 98.8; O2SAT 100
--- NOTE | 2018-11-16 12:26 | ED PDOC ---
Arrival/HPI <Joel Rivera - Last Filed: 11/16/18 17:07> - General Historian: Patient - History of Present Illness Narrative History of Present Illness (Text): 11/16/18 12:22 Pt is a 73 yo female with a PMH of CABG, HTN, DM, and CHF who presented to the ED complaining of right sided rib pain. Pt states she was at a wake last night and needed help standing up. Two people helped her stand up and she felt a pain on her right side which "took my breath away" and then quickly went away. This morning the pain came back, and was much worse 10/10 sharp. Time/Duration: 24 hours Symptom Onset: Gradual Symptom Course: Worsening Quality: Stabbing Severity Level: 10 Activities at Onset: Rest Context: Sitting <Lilli Hammeruday Auguste - Last Filed: 11/16/18 17:25> - General Chief Complaint: Rib Injury Time Seen by Provider: 11/16/18 11:15 Past Medical History - Infectious Disease Hx of Infectious Diseases: None - Tetanus Immunization Tetanus Immunization: Unknown - Cardiac Hx Cardiac Disorders: Yes (CABG,OPEN HEART,CAD S/P ABLATION.) Hx Congestive Heart Failure: Yes Hx Hypertension: Yes - Pulmonary Hx Chronic Obstructive Pulmonary Disease (COPD): Yes - Neurological Hx Neurological Disorder: No - HEENT Hx HEENT Disorder: No - Renal Hx Renal Disorder: No - Endocrine/Metabolic Hx Diabetes Mellitus Type 2: Yes - Hematological/Oncological Hx Blood Disorders: No - Integumentary Hx Dermatological Disorder: Yes Other/Comment: left lower leg red and +2 edema with dry flakey skin to foot and lower leg, right lower extremity less red +3 pitting edema to foot with dry flakey skin. Pt stated" My legs have been like this since after my open heart sx".pt now wearing a boot/splint due to r ft fx was in [facility] for rehab, r forearm fading skin discoloration due to bloodwork and iv attempts as per pt - Musculoskeletal/Rheumatological Hx Musculoskeletal Disorders: Yes (ROTATOR CUFF OF L SHOULDER) Hx Falls: Yes (fell 01/2017) Hx Fractures: Yes (RIGHT FOOT FX WITH SPLINT) Hx Osteoarthritis: Yes Hx Osteoporosis: Yes Hx Unsteady Gait: Yes (WALKER WITH ASSIST) - Gastrointestinal Hx Gastrointestinal Disorders: Yes (obese) - Genitourinary/Gynecological Hx Genitourinary Disorders: Yes (C/S X 1) - Psychiatric Hx Psychophysiologic Disorder: Yes Hx Anxiety: Yes Hx Depression: Yes Hx Substance Use: No - Surgical History Hx Open Heart Surgery: Yes Other/Comment: rt foot fracture + splint - Anesthesia Hx Anesthesia Reactions: No - Suicidal Assessment Feels Threatened In Home Enviroment: No <Ronen Hammer - Last Filed: 11/16/18 17:25> Family/Social History Family/Social History: Diabetes, CAD/ND Smoking Status: Never Smoked Hx Alcohol Use: No Hx Substance Use: No Hx Substance Use Treatment: No <Ronen Hammer - Last Filed: 11/16/18 17:25> Allergies/Home Meds <Joel Rivera - Last Filed: 11/16/18 17:07> <Ronen Hammer - Last Filed: 11/16/18 17:25> Allergies/Adverse Reactions: Allergies No Known Allergies Allergy (Verified 11/16/18 11:43) Home Medications: Home Meds Medication Instructions Recorded Confirmed Alprazolam 0.25 mg PO BID 09/10/14 05/16/17 Atorvastatin [Lipitor] 40 mg PO DAILY 09/10/14 05/16/17 Escitalopram [Lexapro] 20 mg PO DAILY 09/10/14 05/16/17 Apixaban [Eliquis] 5 mg PO BID 04/15/17 05/16/17 Folic Acid 1 mg PO DAILY 04/15/17 05/16/17 Montelukast [Singulair] 10 mg PO HS 04/15/17 05/16/17 [id number] Ethyl Esters 1 GM 1 gm PO BID 04/15/17 05/16/17 [Lovaza] Pantoprazole [Protonix EC Tab] 40 mg PO DAILY 04/15/17 05/16/17 Tadalafil [Adcirca] 20 mg PO HS 04/15/17 05/16/17 Acetaminophen [8Hr Arthritis Pain] 650 mg PO Q8 PRN 05/16/17 05/16/17 Albuterol/Ipratropium [Duoneb 3 3 ml INH Q6 05/16/17 05/16/17 mg/0.5 mg (3 ml) UD] Glipizide [Glipizide Xl] 10 mg PO DAILY 05/16/17 05/16/17 Insulin Detemir [Levemir] 100 unit SQ [facility] 05/16/17 05/16/17 Insulin Human Regular-LOW [HumuLIN 100 units SC [facility] 05/16/17 05/16/17 R LOW] MetFORMIN ER [Glucophage XR] 500 mg PO BID 05/16/17 05/16/17 Nebivolol [Bystolic] 2.5 mg PO DAILY 05/16/17 05/16/17 Ondansetron HCl [Zofran] 4 mg PO Q6 PRN 05/16/17 05/16/17 Review of Systems - Review of Systems Constitutional: Normal Eyes: Normal ENT: Normal Respiratory: Normal Cardiovascular: Normal Gastrointestinal: Normal Genitourinary Female: Normal Musculoskeletal: Other (right sided rib pain) Skin: Normal Neurological: Normal Endocrine: Normal Hemo/Lymphatic: Normal Psychiatric: Normal <Ronen Hammer - Last Filed: 11/16/18 17:25> Physical Exam Vital Signs Temp Pulse Resp BP Pulse Ox 11/16/18 11:43 98.8 F 69 22 114/62 100 <Joel Rivera - Last Filed: 11/16/18 17:07> Vital Signs Reviewed: Yes Vital Signs Temp Pulse Resp BP Pulse Ox 11/16/18 11:43 98.8 F 69 22 114/62 100 Temperature: Afebrile Blood Pressure: Normal Pulse: Regular Respiratory Rate: Normal Appearance: Positive for: Well-Appearing Mental Status: Positive for: Alert and Oriented X 3 - Systems Exam Head: Present: Atraumatic, Normocephalic Pupils: Present: PERRL Extroacular Muscles: Present: EOMI Mouth: Present: Moist Mucous Membranes Neck: Present: Normal Range of Motion Respiratory/Chest: Present: Clear to Auscultation, Good Air Exchange Cardiovascular: Present: Regular Rate and Rhythm Abdomen: Present: Normal Bowel Sounds. No: Tenderness, Distention Back: Present: Other (right side rib pain, radiates to back and under right breast) Upper Extremity: Present: Normal Inspection Lower Extremity: Present: Normal Inspection Neurological: Present: GCS=15, CN II-XII Intact Skin: Present: Warm, Dry Psychiatric: Present: Alert, Oriented x 3 <Ronen Hammer - Last Filed: 11/16/18 17:25> Medical Decision Making ED Course and Treatment: 11/16/18 17:07 Patient noted to be initially hypoglycemic to 40s, but after ingestion of food resulted in increase in FSG at 122. She reports feeling better and desires to go home. She is advised to monitor her symptoms and to follow up with her PCP. She is advised to continue pain control. Opportunity for questions given and answered. She is stable for discharge. - Lab Interpretations Lab Results: Lab Results 11/16/18 16:15: POC Glucose (mg/dL) 122 H 11/16/18 15:21: POC Glucose (mg/dL) 60 L 11/16/18 14:45: POC Glucose (mg/dL) 40 L I have reviewed the lab results: Yes - RAD Interpretation Radiology Orders: 11/16/18 12:19 RIBS RIGHT & PA CHEST [RAD] Stat - Medication Orders Current Medication Orders: Discontinued Medications Cyclobenzaprine HCl (Flexeril) 10 mg PO STAT STA Stop: 11/16/18 12:21 Last Admin: 11/16/18 12:32 Dose: 10 mg Dextrose (Dextrose 50% Inj) 50 ml IVP STAT STA Stop: 11/16/18 14:47 Ketorolac Tromethamine (Toradol) 30 mg IM STAT STA Stop: 11/16/18 12:22 Last Admin: 11/16/18 12:32 Dose: 30 mg MAR Pain Assessment Document 11/16/18 12:32 [place] (Rec: 11/16/18 12:32 [place] [facility] [id number] Pain Reassessment Is this a pain reassessment? No Sleep Is patient sleeping during reassessment? No Presence of Pain Presence of Pain Yes Pain Scale Used Protocol: PSCALES Pain Scale Used Numeric Location Left, Right or Bilateral Left Description Intensity of Pain at present 10 IM Administration Charges Document 11/16/18 12:32 [place] (Rec: 11/16/18 12:32 [place] [id number]) Injection Site MAR Injection Site Left Deltoid Charges for Administration # of IM Administrations 1 Lidocaine (Lidoderm) 1 ea TD DAILY RASHID Last Admin: 11/16/18 13:46 Dose: 1 ea MAR Transdermal Patch Site Document 11/16/18 13:46 [place] (Rec: 11/16/18 13:47 [place] [id number]) Transdermal Patch Site Transdermal Patch Site Left Lower Back Lidocaine (Lidoderm) 1 ea TD ONCE ONE Stop: 11/16/18 14:15 <Joel Rivera - Last Filed: 11/16/18 17:07> ED Course and Treatment: 11/16/18 12:30 xray rib series flexeril PO toradol IM 11/16/18 17:24 discharge pt home Pt seen, examined, assessment and plan discussed with Dr Miguel Hammer PGY1 - RAD Interpretation Radiology Orders: 11/16/18 12:19 RIBS RIGHT & PA CHEST [RAD] Stat - Medication Orders Current Medication Orders: Cyclobenzaprine HCl (Flexeril) 10 mg PO STAT STA Stop: 11/16/18 12:21 Ketorolac Tromethamine (Toradol) 30 mg IM STAT STA Stop: 11/16/18 12:22 <Ronen Hammer - Last Filed: 11/16/18 17:25> Disposition/Present on Arrival - Present on Arrival Any Indicators Present on Arrival: No - Disposition Have Diagnosis and Disposition been Completed?: Yes Disposition Time: 17:12 Patient Plan: Discharge <Joel Rivera - Last Filed: 11/16/18 17:07> - Present on Arrival History of DVT/PE: No History of Uncontrolled Diabetes: No Urinary Catheter: No History of Decub. Ulcer: No History Surgical Site Infection Following: None <Ronen Hammer - Last Filed: 11/16/18 17:25> - Disposition Diagnosis: Hypoglycemia, Rib pain Patient Problems: Current Active Problems Problem Status Onset Hypoglycemia Acute Rib pain Acute Discharge Instructions (ExitCare): Chest Pain That Is Not Caused by the Heart (DC), Low Blood Sugar, Adult (DC) Print Language: SPA Additional Instructions: Please use pain medication as needed Please monitor your blood sugars Please see your PCP within the incoming week Prescriptions: Lidocaine 5% [Lidoderm] 1 each TP Q12 #6 patch Naproxen 500 mg PO BID #10 tab Referrals: Cynthia Weiner MD [Medical Doctor] - Follow up with primary Forms: [employer] ([place])
[2018-11-16] MEDS ORDERED: Lidocaine 5% Patch TD SCH (13:30)
--- NOTE | 2018-11-16 14:06 | RAD ---
Date of service: 05/07/2017 11/16/2018 PROCEDURE: Radiographs of the Chest and Right Ribs. HISTORY: rib pain COMPARISON: None available. TECHNIQUE: Frontal radiograph of the chest and multiple oblique radiographs of the right ribs were obtained. 4 views obtained. FINDINGS: RIGHT RIBS: Slight deformity of the anterior aspect of the right 4th rib seen on only one view. Possible acute versus healed rib fracture. No other rib fracture identified. No lytic or blastic osseous lesion. LUNGS: Clear. PLEURA: No pneumothorax or pleural fluid. CARDIOVASCULAR: Normal cardiac size. AICD. Sternotomy wires. There is atherosclerotic calcification of the thoracic aorta. OTHER FINDINGS: None. IMPRESSION: Questionable acute versus old healed fracture of the anterior right 4th rib. No other acute abnormality.
[2018-11-16] MEDS ORDERED: Lidocaine 5% Patch TD ONE (14:14)
[2018-11-16] MEDS ORDERED: Dextrose 50% SYRINGE Inj (50 ml) IVP STA (14:46)
== END 2018-11-16 17:50 | disposition home or self-care (01) ==
LOC: ED 11:13
DX: R07.9 Chest pain, unspecified (principal); E11.649 Type 2 diabetes mellitus with hypoglycemia without coma; I25.10 Atherosclerotic heart disease of native coronary artery without angina pectoris; I11.0 Hypertensive heart disease with heart failure; I50.9 Heart failure, unspecified; Z95.1 Presence of aortocoronary bypass graft; Z82.49 Family history of ischemic heart disease and other diseases of the circulatory system; Z83.3 Family history of diabetes mellitus
CPT/HCPCS: 71101; 82948; 96372; 99284; J1885